=== PATIENT | female | born 1945 | race Caucasian/White ===

== ENCOUNTER 2020-02-10 11:56 | Outpatient (REF) | payer MEDICARE, MEDICAID, SELFPAY ==
[2020-02-10 14:17] LABS: MANUAL DIFF FLAG NO
[2020-02-10 14:29] LABS: Basophils Absolute Auto 0.1 X10*3/uL (0.0-0.2); Basophils Percent Auto 0.9 % (0-2); Eosinophils Absolute Auto 0.1 X10*3/uL (0.0-0.4); Eosinophils Percent Auto 1.1 % (0-4); Hematocrit 41.4 % (37-47); Hemoglobin 13.3 g/dl (12.0-16.0); Imm Gran Abs Auto 0.05 X10*3/uL (0.00-0.03); Imm Gran Pct Auto 0.4 % (0.0-0.4); Lymphocytes Absolute Auto 1.9 X10*3/uL (1.2-4.9); Lymphocytes Percent Auto 14.9 % (20-40); Mean Corpuscular HGB Conc 32.1 g/dl (31.0-35.0); Mean Corpuscular Hemoglobin 30.6 pg (27.0-33.0); Mean Corpuscular Volume 95.4 fL (80-98); Mean Platelet Volume 10.6 fL (9.4-12.3); Monocytes Absolute Auto 1.1 X10*3/uL (0.1-1.2); Monocytes Percent Auto 8.6 % (2-11); Neutrophils Absolute Auto 9.4 X10*3/uL (2.0-8.3); Neutrophils Percent Auto 74.1 % (45-73); Platelet Count 269 X10*3/uL (160-400); Red Blood Count 4.34 X10*6/uL (4.20-5.50); White Blood Count 12.7 X10*3/uL (4.8-10.8)
[2020-02-10 14:52] LABS: Alanine Aminotransferase 47 U/L (0-31); Albumin Level 4.4 g/dL (3.5-5.0); Alkaline Phosphatase 51 U/L (39-117); Anion Gap 16 (12-20); Aspartate Amino Transferase 33 U/L (5-31); Bilirubin Total 0.5 mg/dL (0.0-1.0); Blood Urea Nitrogen 23 mg/dL (9-16); C Reactive Protein 0.66 mg/dL (< or = 0.50); Calcium 9.4 mg/dL (8.4-10.2); Carbon Dioxide 26 mmol/L (22-29); Chloride 103 mmol/L (96-108); Estimated Glomerular Filt Rate > 60; Glucose Random 93 mg/dL (60-115); Potassium 4.7 mmol/l (3.3-5.1); Sodium 140 mmol/L (135-145); Total Protein 6.9 g/dL (6.5-8.0)
[2020-02-10 15:10] LABS: Erythrocyte Sedimentation Rate 19 MM/HR (0-20)
== END 2020-02-10 11:57 | disposition home or self-care (01) ==
LOC: HO.10HDL 11:56
PROVIDERS: Visit Provider Internal Medicine Rheumatology
DX: M79.7 Fibromyalgia (principal)
CPT/HCPCS: 36415; 80053; 85025; 85652; 86140

== ENCOUNTER → 2020-02-11 09:44 | Outpatient (BNVA) | payer MEDICARE, MEDICAID, SELFPAY | PROVIDERS: PCP Internal Medicine; Visit Provider Hospitalist | DX: D80.1 Nonfamilial hypogammaglobulinemia (principal); G47.33 Obstructive sleep apnea (adult) (pediatric); J44.9 Chronic obstructive pulmonary disease, unspecified; Z99.89 Dependence on other enabling machines and devices | CPT/HCPCS: 99212 ==

== ENCOUNTER → 2020-03-07 13:04 | Outpatient (REF) | payer MEDICARE, MEDICAID, SELFPAY ==
--- NOTE | 2020-03-07 13:07 | CA_ITS ---
Transthoracic Echocardiogram Patient (Last, First, Middle): Dixie Cevallos A Gender: Female Date of : 1945 Age: 74 Procedure Date: 03/07/2020 Procedure Type: Transthoracic Echocardiogram Location: OP Height: 157.48 cm Weight: 99.79 kg BSA: 1.99 m2 Heart Rate: bpm BP: 110 / 60 mmHg Refractory Tile Helper: MARCY Referring MD: Cami Post MD Symptoms: G47.33 - Obstructive sleep apnea (adult) (pediatric) Study Quality: Fair ECG Rhythm: Sinus Conclusions: - The left ventricular systolic function is normal. The visually estimated ejection fraction is between 60-65%. - No obvious valvular pathology seen on this study. Findings Left Ventricle Normal left ventricular cavity size. There is mildly increased left ventricular wall thickness. The left ventricular systolic function is normal. The visually estimated ejection fraction is between 60-65%. There is no evidence of regional wall motion abnormalities. Diastolic function is normal for age. Right Ventricle Normal right ventricular cavity size and systolic function. Atria The left atrium is normal in size. The right atrium is normal in size. Aortic Valve There is a normal trileaflet aortic valve. There is no aortic valve stenosis. There is no aortic valve regurgitation. Mitral Valve The mitral valve appears normal. There is trace mitral valve regurgitation. There is no mitral valve stenosis. Pulmonic Valve The pulmonic valve was not well visualized. Tricuspid Valve Normal tricuspid valve structure. There is trace tricuspid valve regurgitation. The pulmonary artery systolic pressure is normal. Great Vessels The aortic annulus, sinuses of valsalva, and asc aorta are normal in size. Venous The inferior vena cava is normal in size and collapses greater than 50% with inspiration. Pericardium/Pleural There is no evidence of pericardial effusion. Prior Study Comparison No significant change compared to prior study dated: 11/19/2018. Recommendations, Care & Conclusions No obvious valvular pathology seen on this study. Measurements 2D Linear Measurements IVSd: 1.11 0.6-0.9/0.6-1.0 cm LVIDd: 4.06 3.9-5.3/4.2-5.9 cm LVIDd Index: 2.04 2.4-3.2/2.2-3.1 cm/m2 LVIDs: 2.63 2.0-3.6 cm LVPWd: 1.11 0.7-1.1 cm Ao Root: 3.40 2.1-3.5 cm LA Diam: 3.30 2.7-3.8/3.0-4.0 cm LAIDs Index: 1.66 1.5-2.3 cm/m2 LV Mass: 187.98 67-162/88-224 g LV Mass Index: 94.46 43-95/49-115 g/m2 LVOT Diam: 2.00 3.0+(-)1.3 cm 2D Systolic Function EF 4C: 55.70 >55% EF 2C: 55.70 >55% EF BiP: 55.40 >55% Mitral Valve MV Pk E: 0.81 MV PK A: 1.23 MV Decel Time: 299.00 E/A: 0.70 E'Lateral: 6.96 E'Medial: 5.80 E/E' Med: 14.00 E/E' Lat: 11.60 PHT: 88.00 MVA PHT: 2.50 Decel [place]: 2.71 Aortic Valve AoV Pk Deshawn: 1.53 AoV Mn Deshawn: 0.96 AoV VTI: 0.27 AoV Pk Grad: 9.00 Aov Mn Grad: 4.00 ADAM Cont.VTI: 2.79 LVOT LVOT Pk Deshawn: 1.28 LVOT Mn Deshawn: 0.83 LVOT VTI: 0.24 LVOT Pk Grad: 7.00 LVOT Mn Grad: 3.00 LVOT Diam: 2.00 LVOT Area: 3.14 Diastolic Function MV Pk E: 0.81 MV Pk A: 1.23 E/A: 0.70 E'Medial: 5.80 E/E' Med: 14.00 E' Laterial: 6.96 E/E' Lat: 11.60 Tricuspid Valve TR Pk Deshawn: 2.07 TR Pk Grad: 17.00 RA Press: 3.00 RVSP: 20.00 Great Vessels Aorta Ao Root-2D: 3.40 2.0-3.7 cm Ao Asc: 3.20 2.1-3.4 cm Ao Arch: 2.60 Updated in Other Vendor System with Status of Final Kwame Ballesteros MD electronically signed on 03/08/2020 11:16:47 AM with status of Final
== END ==
LOC: HO.CARD 13:04
PROVIDERS: PCP Internal Medicine; Visit Provider Internal Medicine
DX: R07.9 Chest pain, unspecified (principal); R06.00 Dyspnea, unspecified; J44.9 Chronic obstructive pulmonary disease, unspecified; G47.33 Obstructive sleep apnea (adult) (pediatric); Z99.89 Dependence on other enabling machines and devices
CPT/HCPCS: 93306

== ENCOUNTER → 2020-05-12 11:09 | Outpatient (BNVA) | payer MEDICARE, MEDICAID, SELFPAY | PROVIDERS: PCP Internal Medicine; Visit Provider Hospitalist | DX: G47.33 Obstructive sleep apnea (adult) (pediatric) (principal); R06.00 Dyspnea, unspecified; J44.9 Chronic obstructive pulmonary disease, unspecified; K44.9 Diaphragmatic hernia without obstruction or gangrene; D80.1 Nonfamilial hypogammaglobulinemia | CPT/HCPCS: 99212 ==

== ENCOUNTER → 2020-05-30 09:05 | Outpatient (BNVA) | payer MEDICARE, MEDICAID, SELFPAY | PROVIDERS: PCP Internal Medicine; Visit Provider Internal Medicine | DX: E11.9 Type 2 diabetes mellitus without complications (principal); E78.5 Hyperlipidemia, unspecified; I10 Essential (primary) hypertension; R01.1 Cardiac murmur, unspecified | CPT/HCPCS: 82947; 99212 ==

== ENCOUNTER → 2020-07-26 13:07 | Outpatient (BNVA) | payer MEDICARE, MEDICAID, SELFPAY | PROVIDERS: PCP Internal Medicine; Visit Provider Hospitalist | DX: K44.9 Diaphragmatic hernia without obstruction or gangrene (principal); J47.9 Bronchiectasis, uncomplicated; D80.1 Nonfamilial hypogammaglobulinemia; J44.9 Chronic obstructive pulmonary disease, unspecified; G47.33 Obstructive sleep apnea (adult) (pediatric); Z99.89 Dependence on other enabling machines and devices | CPT/HCPCS: 99212 ==

== ENCOUNTER 2020-08-11 08:19 | Outpatient (REF) | payer MEDICARE, MEDICAID, SELFPAY ==
[2020-08-11 10:09] LABS: Alanine Aminotransferase 40 U/L (0-31); Albumin Level 4.3 g/dL (3.5-5.0); Alkaline Phosphatase 57 U/L (39-117); Aspartate Amino Transferase 27 U/L (5-31); Bilirubin Direct 0.2 mg/dL (0.0-0.5); Bilirubin Total 0.5 mg/dL (0.0-1.0); Total Protein 6.4 g/dL (6.5-8.0)
[2020-08-11 10:10] LABS: Estimated Average Glucose 140 mg/dL; Hematocrit 39.8 % (37-47); Hemoglobin 13.3 g/dl (12.0-16.0); Hemoglobin A1c % 6.5 %; Mean Corpuscular HGB Conc 33.4 g/dl (31.0-35.0); Mean Corpuscular Hemoglobin 31.4 pg (27.0-33.0); Mean Corpuscular Volume 94.1 fL (80-98); Mean Platelet Volume 10.2 fL (9.4-12.3); Platelet Count 285 X10*3/uL (160-400); Red Blood Count 4.23 X10*6/uL (4.20-5.50); Red Cell Distribution Width 13.8 % (11.0-16.0); White Blood Count 10.2 X10*3/uL (4.8-10.8)
[2020-08-11 10:24] LABS: Alanine Aminotransferase 41 U/L (0-31); Albumin Level 4.3 g/dL (3.5-5.0); Alkaline Phosphatase 56 U/L (39-117); Anion Gap 13 (12-20); Aspartate Amino Transferase 27 U/L (5-31); Bilirubin Total 0.5 mg/dL (0.0-1.0); Blood Urea Nitrogen 16 mg/dL (9-16); Calcium 9.4 mg/dL (8.4-10.2); Carbon Dioxide 27 mmol/L (22-29); Chloride 103 mmol/L (96-108); Cholesterol 205 mg/dL; Estimated Glomerular Filt Rate > 60; Glucose Random 122 mg/dL (60-115); HDL Cholesterol 59 mg/dL; LDL Cholesterol Calculated 118 mg/dl; Potassium 4.3 mmol/L (3.3-5.1); Sodium 139 mmol/L (135-145); Total Protein 6.5 g/dL (6.5-8.0); Triglycerides 143 mg/dL
[2020-08-11 10:29] LABS: Vitamin D 25-OH Total 34.3 ng/mL (>30)
[2020-08-11 10:30] LABS: Thyroid Stimulating Hormone 0.82 uIU/mL (0.32-4.0)
[2020-08-11 11:19] LABS: Creatinine Urine 75.55 mg/dL; Microalbumin Urine < 5.0 mg/L
[2020-08-12 06:47] LABS: LDL Cholesterol Direct 127 mg/dL (<100)
== END 2020-08-11 08:20 | disposition home or self-care (01) ==
LOC: HO.LAB 08:19
PROVIDERS: Absent Provider Internal Medicine Gastroenterology; PCP Internal Medicine; Visit Provider Internal Medicine
DX: E03.9 Hypothyroidism, unspecified (principal); R79.89 Other specified abnormal findings of blood chemistry; E11.9 Type 2 diabetes mellitus without complications; E55.9 Vitamin D deficiency, unspecified
CPT/HCPCS: 36415; 80053; 80061; 80076; 82043; 82248; 82306; 83036; 83721; 84443; 85027

== ENCOUNTER → 2020-08-25 12:55 | Outpatient (BNVA) | payer MEDICARE, MEDICAID, SELFPAY | PROVIDERS: PCP Internal Medicine; Visit Provider Hospitalist | DX: D80.1 Nonfamilial hypogammaglobulinemia (principal); J44.9 Chronic obstructive pulmonary disease, unspecified; G47.33 Obstructive sleep apnea (adult) (pediatric); K44.9 Diaphragmatic hernia without obstruction or gangrene; J47.9 Bronchiectasis, uncomplicated; Z99.89 Dependence on other enabling machines and devices | CPT/HCPCS: 99212 ==

== ENCOUNTER → 2020-08-29 10:51 | Outpatient (BNVA) | payer MEDICARE, MEDICAID, SELFPAY | PROVIDERS: PCP Internal Medicine; Visit Provider Nurse Practitioner Gerontology | DX: E11.9 Type 2 diabetes mellitus without complications (principal); E78.5 Hyperlipidemia, unspecified; I10 Essential (primary) hypertension; Z71.3 Dietary counseling and surveillance; Z79.899 Other long term (current) drug therapy | CPT/HCPCS: 82947; 99212 ==

== ENCOUNTER → 2020-09-15 14:50 | Outpatient (REF) | payer MEDICARE, MEDICAID, SELFPAY | LOC: HO.SL 14:50 | PROVIDERS: PCP Internal Medicine; Visit Provider Hospitalist | DX: G47.33 Obstructive sleep apnea (adult) (pediatric) (principal) | CPT/HCPCS: 95806 ==

== ENCOUNTER → 2020-09-20 13:07 | Outpatient (BNVA) | payer MEDICARE, MEDICAID, SELFPAY | PROVIDERS: PCP Internal Medicine; Visit Provider Hospitalist ==

== ENCOUNTER 2020-09-20 13:45 | Outpatient (REF) | payer MEDICARE, MEDICAID, SELFPAY ==
--- NOTE | ~2020-09-20 | US_ITS ---
EXAMINATION: US VENOUS ULTRASOUND WITH DOPPLER LOWER EXTREMITY, RIGHT CLINICAL INFORMATION: Soft tissue disorder. Leg pain. COMPARISON: None TECHNIQUE: Ultrasound of the deep veins is performed from the hip to the calf with compression sonography and color and pulse Doppler assessment. Spectral analysis with color-flow imaging is performed. FINDINGS: There is normal venous compression and respiratory variation and augmented flow. The visualized common femoral vein, superficial femoral vein, profunda femoral vein, popliteal vein, and the trifurcation region shows no evidence of deep venous thrombosis. There is no significant popliteal fossa cyst. If the patient's symptoms persist, followup ultrasound in 5 days 7 days might be of value to exclude proximal propagation from a non-visualized calf vein. US/US venous duplex LE RT IMPRESSION: No DVT demonstrated in the right lower extremity.
== END 2020-09-20 13:46 | disposition home or self-care (01) ==
LOC: HO.US 13:45
PROVIDERS: Absent Provider Internal Medicine; PCP Internal Medicine; Referring Provider Hospitalist; Visit Provider Hospitalist
DX: J44.9 Chronic obstructive pulmonary disease, unspecified (principal); G47.33 Obstructive sleep apnea (adult) (pediatric); R60.0 Localized edema; R33.9 Retention of urine, unspecified; R30.0 Dysuria; L03.90 Cellulitis, unspecified; D80.1 Nonfamilial hypogammaglobulinemia; Z79.899 Other long term (current) drug therapy
CPT/HCPCS: 93971; 99212

== ENCOUNTER 2020-09-21 09:39 | Outpatient (REF) | payer MEDICARE, MEDICAID, SELFPAY ==
[2020-09-21 11:26] LABS: Glucose Urine UA NEG (NEG); Leukocyte Esterase Urine 3+ (NEG); Nitrite Urine NEG (NEG); UACC Culture Trigger YES; Urine Blood TRACE (NEG); Urine Ketones NEG (NEG); Urine Protein TRACE MG/DL (NEG-TRACE)
[2020-09-21 11:37] LABS: Appearance Urine HAZY; Color Urine YELLOW
[2020-09-21 12:36] LABS: Bacteria Urine 1+ /LPF; RBC Urine 0-2 /HPF (0); Squamous Epithelial Cell Urine 3+ /LPF; WBC Urine 50-75 /HPF (0-4)
== END 2020-09-21 09:40 | disposition home or self-care (01) ==
LOC: HO.LAB 09:39
PROVIDERS: PCP Internal Medicine; Visit Provider Hospitalist
DX: R30.0 Dysuria (principal)
CPT/HCPCS: 81001; 81003; 87086

== ENCOUNTER → 2020-11-17 13:06 | Outpatient (BNVA) | payer MEDICARE, MEDICAID, SELFPAY | PROVIDERS: PCP Internal Medicine; Visit Provider Hospitalist | DX: J44.9 Chronic obstructive pulmonary disease, unspecified (principal); J40 Bronchitis, not specified as acute or chronic; G47.33 Obstructive sleep apnea (adult) (pediatric); L03.115 Cellulitis of right lower limb; R30.0 Dysuria; D80.1 Nonfamilial hypogammaglobulinemia; M79.89 Other specified soft tissue disorders | CPT/HCPCS: 99212 ==

== ENCOUNTER → 2021-08-14 13:17 | Outpatient (BNVA) | payer MEDICARE, MEDICAID, SELFPAY | PROVIDERS: PCP Internal Medicine; Visit Provider Hospitalist | DX: G47.33 Obstructive sleep apnea (adult) (pediatric) (principal); J44.9 Chronic obstructive pulmonary disease, unspecified; D80.1 Nonfamilial hypogammaglobulinemia; R30.0 Dysuria; Z79.899 Other long term (current) drug therapy; Z99.89 Dependence on other enabling machines and devices | CPT/HCPCS: 99212 ==

== ENCOUNTER → 2021-09-19 10:56 | Outpatient (BNVA) | payer MEDICARE, MEDICAID, SELFPAY | PROVIDERS: PCP Internal Medicine; Visit Provider Nurse Practitioner Family | DX: G43.709 Chronic migraine without aura, not intractable, without status migrainosus (principal); M54.2 Cervicalgia | CPT/HCPCS: 99202 ==

== ENCOUNTER → 2021-10-26 14:01 | Outpatient (BNVA) | payer MEDICARE, MEDICAID, SELFPAY | PROVIDERS: PCP Internal Medicine; Visit Provider Hospitalist | DX: J40 Bronchitis, not specified as acute or chronic (principal); G47.33 Obstructive sleep apnea (adult) (pediatric); K21.9 Gastro-esophageal reflux disease without esophagitis; D80.1 Nonfamilial hypogammaglobulinemia; Z79.899 Other long term (current) drug therapy; Z99.81 Dependence on supplemental oxygen; Z79.2 Long term (current) use of antibiotics | CPT/HCPCS: 99212 ==

== ENCOUNTER → 2021-11-29 13:22 | Outpatient (BNVA) | payer MEDICARE, MEDICAID, SELFPAY | PROVIDERS: PCP Internal Medicine; Visit Provider Student in an Organized Health Care Education/Training Program | DX: M81.0 Age-related osteoporosis without current pathological fracture (principal); M62.838 Other muscle spasm; D80.1 Nonfamilial hypogammaglobulinemia; D69.2 Other nonthrombocytopenic purpura; K21.9 Gastro-esophageal reflux disease without esophagitis; R23.3 Spontaneous ecchymoses | CPT/HCPCS: 99202 ==

== ENCOUNTER → 2021-12-05 15:05 | Outpatient (BNV) | payer MEDICARE, MEDICAID, SELFPAY | PROVIDERS: PCP Internal Medicine; Referring Provider Student in an Organized Health Care Education/Training Program; Visit Provider Internal Medicine Medical Oncology | DX: D80.1 Nonfamilial hypogammaglobulinemia (principal) | CPT/HCPCS: 99204; 99213; 99214 ==

== ENCOUNTER → 2021-12-21 13:56 | Outpatient (BNVA) | payer MEDICARE, MEDICAID, SELFPAY | PROVIDERS: PCP Internal Medicine; Visit Provider Student in an Organized Health Care Education/Training Program | DX: M81.0 Age-related osteoporosis without current pathological fracture (principal); D80.1 Nonfamilial hypogammaglobulinemia; M47.816 Spondylosis without myelopathy or radiculopathy, lumbar region | CPT/HCPCS: 99212 ==

== ENCOUNTER → 2022-01-25 14:20 | Outpatient (BNVA) | payer MEDICARE, MEDICAID, SELFPAY | PROVIDERS: PCP Internal Medicine; Visit Provider Hospitalist | DX: J44.9 Chronic obstructive pulmonary disease, unspecified (principal); J45.909 Unspecified asthma, uncomplicated; G47.33 Obstructive sleep apnea (adult) (pediatric); D80.1 Nonfamilial hypogammaglobulinemia; K21.9 Gastro-esophageal reflux disease without esophagitis; Z99.89 Dependence on other enabling machines and devices | CPT/HCPCS: 99212 ==

== ENCOUNTER → 2022-02-12 13:22 | Outpatient (BNVA) | payer MEDICARE, MEDICAID, SELFPAY | PROVIDERS: PCP Internal Medicine; Visit Provider Hospitalist | DX: Z23 Encounter for immunization (principal); J44.9 Chronic obstructive pulmonary disease, unspecified | CPT/HCPCS: 90471; 90686; 99211 ==

== ENCOUNTER 2022-06-28 12:58 | Outpatient (RCR) | payer MEDICARE, MEDICAID, SELFPAY ==
[2022-06-28 13:04] VITALS: BP 140/80; PULSE 62; O2SAT 97
== END 2023-04-19 09:14 | disposition home or self-care (01) ==
LOC: HO.PTWFD 12:58
PROVIDERS: Visit Provider Internal Medicine
DX: R42 Dizziness and giddiness (principal)
CPT/HCPCS: 97163

== ENCOUNTER → 2022-07-10 12:44 | Outpatient (REF) | payer MEDICARE, MEDICAID, SELFPAY | LOC: HO.SL 12:44 | PROVIDERS: Visit Provider Hospitalist | DX: G47.33 Obstructive sleep apnea (adult) (pediatric) (principal) | CPT/HCPCS: 95806 ==

== ENCOUNTER → 2022-07-26 12:38 | Outpatient (BNVA) | payer MEDICARE, MEDICAID, SELFPAY | PROVIDERS: PCP Internal Medicine; Visit Provider Hospitalist | DX: J44.9 Chronic obstructive pulmonary disease, unspecified (principal); G47.33 Obstructive sleep apnea (adult) (pediatric); R60.0 Localized edema; D80.1 Nonfamilial hypogammaglobulinemia; Z79.899 Other long term (current) drug therapy | CPT/HCPCS: 99212 ==

== ENCOUNTER 2022-10-15 14:33 | Outpatient (AMB) | payer MEDICARE, MEDICAID, SELFPAY ==
--- NOTE | 2022-10-15 14:40 | MHC.OFFVIS ---
Intake Vital Signs 10/15/22 14:49 Height 5 ft 2 in Weight 220 lb BMI 40.2 BP 150/70 H Blood Pressure Location Rt radial Pulse 94 Pulse Oximetry (%) 98 Intake Visit Reasons: COPD Allergies amoxicillin [AMOXICILLIN] Allergy (Severe, Verified 09/18/22 13:29) NAUSEA & VOMITING atorvastatin [Lipitor] Allergy (Severe, Verified 09/18/22 13:29) severe back pain Biaxin Allergy (Severe, Verified 09/18/22 13:29) Anaphylaxis budesonide [Symbicort] Allergy (Severe, Verified 09/18/22 13:29) shortness of breath celecoxib [From CELEBREX] Allergy (Severe, Verified 09/18/22 13:29) HEART RACING clavulanic acid [From AUGMENTIN] Allergy (Severe, Verified 09/18/22 13:29) FEELS WIERD diazepam [Valium] Allergy (Severe, Verified 09/18/22 13:29) heart rate esomeprazole [Nexium] Allergy (Severe, Verified 09/18/22 13:29) back pain ezetimibe [Zetia] Allergy (Severe, Verified 09/18/22 13:29) anaphylaxis famotidine [Pepcid] Allergy (Severe, Verified 09/18/22 13:29) Back Pain irbesartan [Avapro] Allergy (Severe, Verified 09/18/22 13:29) Stomach Pain nitrofurantoin [Macrobid] Allergy (Severe, Verified 09/18/22 13:29) Stomach Pain shellfish derived Allergy (Severe, Verified 09/18/22 13:29) ANAPHYLAXIS Sulfa (Sulfonamide Antibiotics) Allergy (Severe, Verified 09/18/22 13:29) ANAPHYLAXIS, tongue swelling fluticasone [From Advair Diskus] Allergy (Intermediate, Verified 09/18/22 13:29) Redness of Skin formoterol [Symbicort] Allergy (Intermediate, Verified 09/18/22 13:29) shortness of breath latex [LATEX] Allergy (Intermediate, Verified 09/18/22 13:29) RASH levofloxacin [From LEVAQUIN] Allergy (Intermediate, Verified 09/18/22 13:29) DOES FEEL GOOD metformin Allergy (Intermediate, Verified 09/18/22 13:29) diarrhea pregabalin [From LYRICA] Allergy (Intermediate, Verified 09/18/22 13:29) FELT LIKE HEART ATTACK rabeprazole [From ACIPHEX] Allergy (Intermediate, Verified 09/18/22 13:29) FELT AWFUL rosuvastatin [Crestor] Allergy (Intermediate, Verified 09/18/22 13:29) severe back pain salmeterol [From Advair Diskus] Allergy (Intermediate, Verified 09/18/22 13:29) Redness of Skin telmisartan [From MICARDIS] Allergy (Intermediate, Verified 09/18/22 13:29) DIFF BREATHING topiramate [From TOPAMAX] Allergy (Intermediate, Verified 09/18/22 13:29) HYPERTENSION tramadol [TRAMADOL] Allergy (Intermediate, Verified 09/18/22 13:29) DOES NOT LIKE Iodinated Contrast Media [IV Dye, Iodine Containing] Allergy (Mild, Verified 09/18/22 13:29) HEADACHE,SOB,LIP SWELLING ciprofloxacin [From Cipro] Adverse Reaction (Mild, Verified 09/18/22 13:29) ANXIETY clarithromycin [From Biaxin] Adverse Reaction (Mild, Verified 09/18/22 13:29) NAUSEA AND VOMITING pantoprazole [From Protonix] Adverse Reaction (Mild, Verified 09/18/22 13:29) NAUSEA AND VOMITING HPI HPI Comments History of Present Illness Details The patient is a 77 y/o woman with a history of obstructive sleep apnea on CPAP in addition to intrinsic asthma and also hypogammaglobulinemia. She did see her press operator helper. She was placed on Symbicort and she had an adverse reaction with shortness of breath. Therefore, she will continue on the Flovent. She does have Xopenex. She does have episodes of shortness of breath at night time and now she knows that she is going to use the Xopenex. She did have an ultrasound to abnormal blood work demonstrating that she does have a gallbladder polyp. She is working closely with her lead solutions architect for this. Having some nasal congestion and some upper airway secretions. Did do an x-ray in the x-ray was clear. She did finish a couple courses of antibiotics. She is immunocompromised and she knows that she does not clear infections quickly. She still has a cough and also has some chest tightness. But overall better than before. She continues uses CPAP. The CPAP therapy continues to be affecting beneficial. She does use it for more than 4 hours a night. 08/14/2021 the patient is here for a pulmonary follow-up visit. Apparently the patient was complaining worsening dyspnea symptoms. She did have further evaluations at [facility] pulmonary and also Cardiology. Although no significant improvement in her overall state. She does have issues with recurrent infections in view of her significant hypogammaglobulinemia. She does follow closely with Allergy and immunology. However, the patient is reluctant to consider augmentation therapy. That being said the patient is at risk for recurrent infections. Currently she is getting antibiotics for cystitis. Ultimately she should at least be on prophylactic antibiotics to minimize infections in view of her significant IgG deficiency. In regards of her sleep apnea, we did review her results. Appears that her AHI is down to about 1.2 events an hour. Her CPAP is set at 8 cm on 2L oxygen. Appears to be affecting beneficial. She is going to be following up closely with Neurology as well for issues with dizziness and unsteady gait. She can also discuss her sleep abnormalities who is Neurology as well. In regards of her asthma the patient has been stable on Flovent and also Xopenex. She tried long-acting beta agonist and she does tolerate them. The patient has not required any prednisone. She also underwent a CT scan of the chest done at [facility] sometime in the fall 2020 which is reassuring without any acute interstitial process or pulmonary nodules to be concerned about. The patient did have pulmonary function studies a couple months ago. I do not have those results to review the patient I will request them from [facility] for next meeting. 10/26/2021 the patient is here for pulmonary follow-up visit. Overall she continues to do well. He does complaint of dyspnea on exertion. Moderate severity. We did do a brief walking oximetry in her oxygen did drop to about 91%. She does require oxygen at nighttime. She does use CPAP with oxygen 2 L which is affecting beneficial. She uses CPAP more than 4 hours a night. Her therapy has been affecting beneficial. She needs to continue with the oxygen supplementation at this time. Will plan to do a formal 6 minute walk test during her next visit to see if she qualifies for oxygen with activity as well. She does have underlying COPD. She is on respiratory therapy. She also has immunodeficiency with significantly low IgG levels. The patient is reluctant to starting IVIG therapy because of the potential adverse effects. She has been on prophylactic antibiotics with azithromycin 3 times a week which have been helpful. 01/25/2022 the patient is here for a pulmonary follow-up visit. The patient is doing relatively well from a respiratory status. She does complaint of dyspnea on exertion. The patient also complains of productive cough. On a daily basis. [id number] severity. This is consistent with chronic bronchitis. We need to minimize the use of prednisone due to her significant osteoporosis. She will be a good candidate for Daliresp. The patient is aware of the GI side effects. Now worsen after she had a fall. The patient also was diagnosed with osteoporosis. After the fall she was having significant back pain that was affecting her breathing. She did not follow-up with any medical evaluation. I did recommend she at least undergo a lower back checks x-ray to make sure she does not have a compression fracture. In the meantime she continues use her CPAP therapy. The CPAP therapy continues to be affecting beneficial. She does use it for more than 4 hours a night. She also continues with respiratory medications as prescribed. She did have her IgG levels recheck in the were still very low. The patient is still reluctant to undergo any IVIG augmentation therapy. She also followed up with Cardiology. It was the recommendation she undergo a stress test. They recommended a Jolly nuclear stress test. however, the patient is uncomfortable with the idea of undergoing nuclear study. Therefore I recommend that if that is the case she can undergo a stress echo. She can talk to her commissioner of officials about that. 07/26/2022 the patient is here for a pulmonary follow-up visit. The patient has multiple complaints. She is struggling with the CPAP. She is tolerating the nasal pillows although she sometimes he gets any nasal congestion can tolerated. I did provide her with an F 30 I mask with a fullface mask. Size small. Seem to fit well. I did set up her machine for the fullface mask and cap the pressures the same 6-14. Her average pressure is 10 and her AHI was well below 1. I would was reassuring to her that the therapy has been working well. She needs to make sure she uses the machine 4 hours a night so it she can get the best effect from the machine. Hopefully with a full face much she can tolerate it better. She is doing well from a respiratory status. She is using inhalers every other day which seem to be helping decreasing hoarseness and tolerating them better. No significant wheezing or rhonchi that she can not complain about. She has not had any recent infections. She is using a mask the patient had a CT scan of the chest ordered by a different provider. It demonstrated some smile areas of atelectasis at the base. Otherwise no nodules of bronchiectasis appreciated. This is reassuring. However, the patient did have moderate degree of coronary artery calcifications. She was supposed to have a cardiac stress test. But she is concerned about adverse effects. I had recommended a Jolly nuclear stress test that she should be able to handle. For some reason she was not able to have a nuclear stress test. The patient needs to continue with wrist management as far as decreasing her cardiac risk and therefore using the CPAP therapy will be very important. Other risk modifications she can discuss with commissioner of officials and primary care. The patient does complaint of significant lower extremity edema. Appears to be symmetrical with her blood I leg being significantly swollen. Will be reasonable to do an ultrasound to rule out DVT. 10/15/2022 the patient is here for pulmonary follow-up visit. She has worsening respiratory symptoms. Has been having increasing wheezing for the last week. The patient has been using her nebulizer treatments several times a day. She is on maximal respiratory therapy. She has a hard time tolerating multiple inhalers and therefore the for have some limitations. The patient has been assessed for biologic therapy but the patient does not qualify. She is going to require additional prednisone at this time. She is reluctant to use is and she has had bad adverse effects in the past. Think she is also will be a good candidate for Daliresp. Specially because the fact she can not tolerate prednisone and frequent exacerbations. The patient also has significant immunodeficiency. She has been on prophylactic antibiotics. She has had increased chest congestion. Therefore, will switch her antibiotics over to doxycycline to make sure there were covering for for a lower respiratory infection. She still has lower extremity edema. She does have follow-up with commissioner of officials. Her lower extremity Dopplers were negative for DVT. The patient has been using her CPAP although she feels more congested after using it. We did download her machine. She is using more than 4 hours a night. His AHI is down to 1. I did adjust her pressures from 6-16 to 8 to 11 cm. [facility] Medical History (Updated 08/07/23 @ 22:47 by Chuck Yu MD) Asthma-COPD overlap syndrome Bladder pain Bronchiectasis Bronchitis Cellulitis of right leg Chest pain COPD (chronic obstructive pulmonary disease) Diabetes type 2, controlled Dizziness ANTONY (dyspnea on exertion) Fatty liver Heart murmur Hiatal hernia HTN (hypertension) Hyperlipidemia Hypogammaglobulinemia Hypothyroidism Left wrist pain Lower extremity edema Morbid obesity Obesity GWEN (obstructive sleep apnea) GWEN on CPAP Osteoporosis Post herpetic neuralgia Right elbow pain Right wrist pain Skin tear of right elbow without complication T2DM (type 2 diabetes mellitus) Vitamin D deficiency Vitamin D deficiency Surgical History H/O total hysterectomy with bilateral salpingo-oophorectomy (BSO) Retinal detachment Family History Father CVD (cardiovascular disease) Myocardial infarction Mother Breast cancer Diabetes mellitus Sister Cancer Kidney stone Son No problems noted. Social History Household Members: None Housing: Apartment Are you a primary foster care social worker to a significant other at home: No Do you presently have visiting nurse or other home services: No Alcohol intake: never Patient Tobacco Use Status: Former Tobacco user e-Cigarette/Vaping Use: Never Used Second Hand Smoke Exposure: No service: No Current occupational status: disabled Cognitive needs: Yes Hearing needs: No Vision needs: Yes Review of Systems Const Denies body aches, Denies chills, Denies fatigue, Denies fever(s) and Denies headache(s) Eyes Denies change in vision ENT Reports dizziness, Denies otalgia, Denies headache(s), Denies nasal discharge, Denies sinus pain and Denies sore throat Card Denies chest pain, Denies edema, Reports leg edema (R>L), Denies lightheadedness, Denies dyspnea and Reports dyspnea on exertion Resp Reports chest congestion, Reports cough, Denies dyspnea, Reports dyspnea on exertion and Reports wheezing GI Denies abdominal pain, Denies constipation, Denies diarrhea, Denies nausea and Denies vomiting Denies hematuria, Denies dysuria and Denies flank pain Musc Details: Bilateral lower extremity redness and swelling R>L Reports back pain, Denies myalgias, Denies arthralgias, Denies joint swelling, Denies numbness and Denies tingling Skin/Breast Denies lesions and Denies rash Neuro Reports Neuro-related abnormal movements, Denies confusion, Reports dizziness, Denies headache(s), Denies numbness and Denies tingling Psych Denies confusion Endo Denies fatigue Aller/Immun Reports wheezing Physical Exam Vital Signs: Last Vital Signs Pulse 94 10/15/22 14:49 BP 150/70 H 10/15/22 14:49 Pulse Ox 98 10/15/22 14:49 BMI result Body Mass Index 40.2 Const General: No confusion Orientation/consciousness: No confusion Neck Neck: Yes normal visual inspection, Yes full ROM and Yes no lymphadenopathy Chest Chest palpation & inspection: normal inspection of the chest Resp Effort & Inspection: prolonged expiratory phase Auscultation: wheezes and diminished lung sounds Cardio Rate: regular rate Rhythm: regular rhythm Heart sounds: S1 normal heart sound present and S2 normal heart sound present GI Palpation (GI): Soft to palpation and nontender Auscultation: normal bowel sounds Skin General skin exam: rashes and/or lesions noted Neuro General: No confusion Extrem General: Yes edema (R>>L) Assessment & Plan Assessment & Plan (1) COPD (chronic obstructive pulmonary disease): Code(s): J44.9 - Chronic obstructive pulmonary disease, unspecified Qualifiers: COPD type: COPD with acute exacerbation Qualified Code(s): J44.1 - Chronic obstructive pulmonary disease with (acute) exacerbation (2) GWEN (obstructive sleep apnea): Code(s): G47.33 - Obstructive sleep apnea (adult) (pediatric) (3) Asthma-COPD overlap syndrome: Code(s): J44.9 - Chronic obstructive pulmonary disease, unspecified (4) Hypogammaglobulinemia: Code(s): D80.1 - Nonfamilial hypogammaglobulinemia (5) Lower extremity edema: Code(s): R60.0 - Localized edema Plan continue Flovent Xopenex as needed continue spiriva evry 48 hours hold Azithromycin MWF start medrolpack start Doxycycline Continue CPAP therapy with 2L/min oxygen, provided F30i small mask. Needs to use it at least 4 hours while sleeping. Adjusted APAP 8-11, ramp 6 continue oxygen therapy while sleeping. Therapy effective and beneficial PFTs/pulmonary rehab when better F/U 3-4 months Medications: New prednisone PO daily; Take 2 tabs daily x 5 days, then 1 tab daily x 5 days 18 days 63 tabs 0RF doxycycline hyclate 100 mg PO BID 10 days 20 caps 0RF Coding Level of Care Code Est Pt Level 4 (20290) Diagnoses COPD (chronic obstructive pulmonary disease) J44.1 COPD type: COPD with acute exacerbation GWEN (obstructive sleep apnea) G47.33 Asthma-COPD overlap syndrome J44.9 Hypogammaglobulinemia D80.1 Lower extremity edema R60.0 Time Spent (min) 19
[2022-10-15 14:49] VITALS: BP 150/70; PULSE 94; O2SAT 98; BMI 40.2
== END 2022-10-15 15:27 | disposition home or self-care (01) ==
PROVIDERS: PCP Internal Medicine; Visit Provider Hospitalist
DX: J44.1 Chronic obstructive pulmonary disease with (acute) exacerbation (principal); G47.33 Obstructive sleep apnea (adult) (pediatric); J44.9 Chronic obstructive pulmonary disease, unspecified; D80.1 Nonfamilial hypogammaglobulinemia; R60.0 Localized edema
CPT/HCPCS: 99214

== ENCOUNTER → 2022-10-15 14:33 | Outpatient (BNVA) | payer MEDICARE, MEDICAID, SELFPAY | PROVIDERS: PCP Internal Medicine; Visit Provider Hospitalist | DX: J44.1 Chronic obstructive pulmonary disease with (acute) exacerbation (principal); G47.33 Obstructive sleep apnea (adult) (pediatric); D80.1 Nonfamilial hypogammaglobulinemia; R60.0 Localized edema | CPT/HCPCS: 99212 ==

== ENCOUNTER 2022-11-13 14:52 | Outpatient (AMB) | payer MEDICARE, MEDICAID, SELFPAY ==
[2022-11-13 14:56] VITALS: BP 140/60; PULSE 88; RESP 16; O2SAT 98; BMI 40.1
--- NOTE | 2022-11-13 14:56 | A.OFFPC_ITS ---
Vital Signs 11/13/22 14:56 Height 5 ft 2 in Weight 219 lb 8 oz BMI 40.1 BP 140/60 H Blood Pressure Location Lt brachial Position Sitting Respiration 16 Pulse 88 Pulse Source Pulse Oximeter Pulse Oximetry (%) 98 Oxygen Delivery Method Room Air Intake Visit Reasons: dm NEEDS 30 MINUTES Intake Note: Patient is here to follow up on DM. Pt requesting BP machine. 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 Accompanied by: Self / Same As Patient Allergies amoxicillin [AMOXICILLIN] Allergy (Severe, Verified 11/13/22 15:15) NAUSEA & VOMITING atorvastatin [Lipitor] Allergy (Severe, Verified 11/13/22 15:15) severe back pain Biaxin Allergy (Severe, Verified 11/13/22 15:15) Anaphylaxis budesonide [Symbicort] Allergy (Severe, Verified 11/13/22 15:15) shortness of breath celecoxib [From CELEBREX] Allergy (Severe, Verified 11/13/22 15:15) HEART RACING clavulanic acid [From AUGMENTIN] Allergy (Severe, Verified 11/13/22 15:15) FEELS WIERD diazepam [Valium] Allergy (Severe, Verified 11/13/22 15:15) heart rate esomeprazole [Nexium] Allergy (Severe, Verified 11/13/22 15:15) back pain ezetimibe [Zetia] Allergy (Severe, Verified 11/13/22 15:15) anaphylaxis famotidine [Pepcid] Allergy (Severe, Verified 11/13/22 15:15) Back Pain irbesartan [Avapro] Allergy (Severe, Verified 11/13/22 15:15) Stomach Pain nitrofurantoin [Macrobid] Allergy (Severe, Verified 11/13/22 15:15) Stomach Pain shellfish derived Allergy (Severe, Verified 11/13/22 15:15) ANAPHYLAXIS Sulfa (Sulfonamide Antibiotics) Allergy (Severe, Verified 11/13/22 15:15) ANAPHYLAXIS, tongue swelling fluticasone [From Advair Diskus] Allergy (Intermediate, Verified 11/13/22 15:15) Redness of Skin formoterol [Symbicort] Allergy (Intermediate, Verified 11/13/22 15:15) shortness of breath latex [LATEX] Allergy (Intermediate, Verified 11/13/22 15:15) RASH levofloxacin [From LEVAQUIN] Allergy (Intermediate, Verified 11/13/22 15:15) DOES FEEL GOOD metformin Allergy (Intermediate, Verified 11/13/22 15:15) diarrhea pregabalin [From LYRICA] Allergy (Intermediate, Verified 11/13/22 15:15) FELT LIKE HEART ATTACK rabeprazole [From ACIPHEX] Allergy (Intermediate, Verified 11/13/22 15:15) FELT AWFUL rosuvastatin [Crestor] Allergy (Intermediate, Verified 11/13/22 15:15) severe back pain salmeterol [From Advair Diskus] Allergy (Intermediate, Verified 11/13/22 15:15) Redness of Skin telmisartan [From MICARDIS] Allergy (Intermediate, Verified 11/13/22 15:15) DIFF BREATHING topiramate [From TOPAMAX] Allergy (Intermediate, Verified 11/13/22 15:15) HYPERTENSION tramadol [TRAMADOL] Allergy (Intermediate, Verified 11/13/22 15:15) DOES NOT LIKE Iodinated Contrast Media [IV Dye, Iodine Containing] Allergy (Mild, Verified 11/13/22 15:15) HEADACHE,SOB,LIP SWELLING ciprofloxacin [From Cipro] Adverse Reaction (Mild, Verified 11/13/22 15:15) ANXIETY clarithromycin [From Biaxin] Adverse Reaction (Mild, Verified 11/13/22 15:15) NAUSEA AND VOMITING pantoprazole [From Protonix] Adverse Reaction (Mild, Verified 11/13/22 15:15) NAUSEA AND VOMITING Medication List - Last Reconciled 11/13/22 by Mercedes Rodríguez MD acetaminophen 325 mg PO Q4-6H PRN azithromycin 250 mg PO 3XW 90 days blood sugar diagnostic (FreeStyle Lite Strips) check blood sugar once daily cranberry extract 500 mg PO BID epinephrine 0.15 mg (0.3 mL) IM Q30M PRN 30 days fluticasone furoate 27.5 mcg/actuation 2 sprays intranasal DAILY 90 days fluticasone propionate 220 mcg/actuation 2 puffs PO BID 90 days avxkozndum-jqjbrojidcoz-ldwbkz 1-1-4 % 1 ea topical DAILY lactobacillus combination no.9 (Adult 50 Plus Probiotic) 4,000 mmu cells PO DAILY lancets (FreeStyle Lancets) Freestyle Lite- check blood sugar daily lansoprazole (Prevacid) 30 mg PO DAILY levalbuterol HCl (Xopenex) 1.25 mg inhalation Q4H PRN levalbuterol tartrate 45 mcg/actuation (Xopenex HFA) 45 mcg inhalation DAILY PRN lidocaine 5% 1 patch topical DAILY lisinopril 10 mg PO BID 90 days lisinopril 30 mg PO DAILY multivitamin 1 tab PO DAILY nystatin (Nyamyc) 1 appl topical DAILY Spiriva Respimat 2.5 mcg/actuation (tiotropium bromide) 2 puffs inhalation DAILY NS Synthroid (levothyroxine) 137 mcg PO QAM NS Synthroid (levothyroxine) 125 mcg PO DAILY 90 days NS verapamil ER (Verelan PM) 300 mg PO BEDTIME walker (Ultra-Light Rollator misc) As directed Tobacco use date assessed: 03/29/22 Fall risk assessment: 2 + Falls in past year Last assessed Fall Risk: 11/13/22 Dental Screening Dental Screen Date: 11/13/22 Did you have a dental visit in the last 12 months?: Yes Did you have a dental problem in the last 6 months where you did not have access to dental care?: No Was dental information given to patient?: Patient has dentist HPI HPI Comments History of Present Illness Details This is a 77-year-old female with diabetes mellitus type 2, hypertension, COPD, morbid obesity and hypogammaglobulinemia that comes today complaining of vestibular migraines and peripheral vertigo and would like a referral to [facility]. She walks with a cane for gait stability. She had a bone density in 2021 showing osteoporosis in the right hip and will be referred to [facility] for this matter. A1c within goal. Blood pressure borderline normal to elevated. COPD has been stable and this is follow by pulmonology. She is morbidly obese with a BMI of 40.1 and was advised to diet and exercise to reach BMI goal less than 30. 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 No chest pain or shortness of breath. [facility] Medical History (Updated 11/13/22 @ 15:29 by Mercedes Rodríguez MD) Asthma-COPD overlap syndrome Bladder pain Bronchiectasis Bronchitis Cellulitis of right leg Chest pain COPD (chronic obstructive pulmonary disease) Diabetes type 2, controlled Dizziness ANTONY (dyspnea on exertion) Fatty liver Heart murmur Hiatal hernia HTN (hypertension) Hyperlipidemia Hypogammaglobulinemia Hypothyroidism Left wrist pain Lower extremity edema Morbid obesity Obesity GWEN (obstructive sleep apnea) GWEN on CPAP Osteoporosis Post herpetic neuralgia Right elbow pain Right wrist pain Skin tear of right elbow without complication T2DM (type 2 diabetes mellitus) Vitamin D deficiency Vitamin D deficiency Surgical History H/O total hysterectomy with bilateral salpingo-oophorectomy (BSO) Retinal detachment Family History Father CVD (cardiovascular disease) Myocardial infarction Mother Breast cancer Diabetes mellitus Sister Cancer Kidney stone Son No problems noted. Social History Household Members: None Housing: Apartment Are you a primary laboratory animal care veterinarian to a significant other at home: No Do you presently have visiting nurse or other home services: No Alcohol intake: never Patient Tobacco Use Status: Former Tobacco user e-Cigarette/Vaping Use: Never Used Second Hand Smoke Exposure: No service: No Current occupational status: disabled Cognitive needs: Yes Hearing needs: No Vision needs: Yes Questionnaire Thrive Questionnaire Date Thrive assessed: 03/29/22 KYLIE-7 AMB Questionnaire KYLIE-7 Date KYLIE - 7 assessed: 03/29/22 Source: Developed by Drs. Carroll Shah, Isabella Luz, Ion Pool and colleagues, with an educational portillo from [employer]. Review of Systems Const All systems reviewed & are unremarkable except as noted in HPI and below Eyes Reports no additional complaints, Denies change in vision and Denies other visual disturbances Card Denies chest pain at rest, Denies chest pain with activity, Denies edema, Denies irregular heart rhythm, Denies claudication, Denies dyspnea, Denies dyspnea on exertion, Denies orthopnea, Denies paroxysmal nocturnal dyspnea and Denies slow heart rate Resp Denies cough, Denies dyspnea and Denies dyspnea on exertion GI Denies abdominal pain, Denies change in bowel habits, Denies excessive flatus, Denies nausea and Denies vomiting Denies urinary incontinence, Denies urinary hesitancy and Denies urinary urgency Musc Denies abnormal gait, Denies atrophy, Denies deformity and Denies limited range of motion Skin/Breast Denies bleeding lesions, Denies changing lesions and Denies rash Neuro Denies abnormal gait and Denies lack of coordination Physical exam (Primary Care) Vital Signs: Last Vital Signs Pulse 88 11/13/22 14:56 Resp 16 11/13/22 14:56 BP 140/60 H 11/13/22 14:56 Pulse Ox 98 11/13/22 14:56 Oxygen Delivery Method Room Air 11/13/22 14:56 BMI result Body Mass Index 40.1 Tobacco/Smoking Status: Tobacco use Status Tobacco use date assessed 03/29/22 11/13/22 14:56 Patient Tobacco Use Status Former Tobacco user 11/13/22 14:56 e-Cigarette/Vaping Use Never Used 11/13/22 14:56 Thrive Assessment: Date of Thrive Assessment Date Thrive assessed 03/29/22 11/13/22 14:56 Const Limitations: ambulation with cane Eyes General: appearance normal, both eyes and all related structures Eyelids: Yes eyelids normal Conjunctivae: conjunctivae normal Neck Neck: Yes normal visual inspection and Yes supple Resp Effort & Inspection: normal respiratory effort Auscultation: clear to auscultation bilaterally Cardio Jugular venous distension: no JVD Rate: regular rate Rhythm: regular rhythm Heart sounds: S1 normal heart sound present and S2 normal heart sound present Extrem General: Yes full ROM Results AMB Hemoglobin A1c AMB Hemoglobin A1c 6.1 % Last Edit by JEFFERY Solorzano on 11/13/22 15:12 Results Reviewed Results Reviewed: Laboratory Last Values Hgb A1c (Clinic) 6.1 % (4.0-6.0) H 11/13/22 15:11 Assessment and Plan Assessment & Plan (1) COPD (chronic obstructive pulmonary disease): Code(s): J44.9 - Chronic obstructive pulmonary disease, unspecified Qualifiers: COPD type: COPD with acute exacerbation Qualified Code(s): J44.1 - Chronic obstructive pulmonary disease with (acute) exacerbation Plan: Continue azithromycin 3 times a week. Continue longstanding inhaler. Use rescue inhaler as needed. Follow-up with pulmonology. (2) Hypogammaglobulinemia: Code(s): D80.1 - Nonfamilial hypogammaglobulinemia Plan: Follow-up with loading machine operator helper. (3) Osteoporosis: Code(s): M81.0 - Age-related osteoporosis without current pathological fracture Qualifiers: Osteoporosis type: age-related Presence of current pathological fracture: without current pathological fracture Qualified Code(s): M81.0 - Age- related osteoporosis without current pathological fracture Plan: Referred to [facility]. 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 A1c goal is equal or less than 7%. (5) Morbid obesity: Code(s): E66.01 - Morbid (severe) obesity due to excess calories Plan: Start diet and exercise. BMI goal is less than 30. (6) HTN (hypertension): Code(s): I10 - Essential (primary) hypertension Qualifiers: Hypertension type: unspecified Qualified Code(s): I10 - Essential (primary) hypertension Plan: Continue lisinopril. Blood pressure goal is equal or less than 130/80. Orders: Orders Thyroid Stimulating Hormone Today E03.9 - Hypothyroidism, unspecified Lipid Panel Today E78.5 - Hyperlipidemia, unspecified AMB Hemoglobin A1c Today E11.9 - Type 2 diabetes mellitus without complications Referrals Neurology Referral G43.809 - Other migraine, not intractable, without status migrainosus, H81.399 - Other peripheral vertigo, unspecified ear, R26.89 - Other abnormalities of gait and mobility Endocrinology Referral M81.0 - Age-related osteoporosis without current pathological fracture Medications: New blood pressure monitor As directed 1 ea 0RF I10 - Essential (primary) hypertension Changed From nystatin (Nyamyc) 1 appl topical DAILY To nystatin (Nyamyc) 1 appl topical DAILY 30 days 30 grams 1RF Refilled blood sugar diagnostic (FreeStyle Lite Strips) check blood sugar once daily 100 ea 3RF E11.9 - Type 2 diabetes mellitus without complications Coding Level of Care Code Est Pt Level 4 (44424) Diagnoses COPD (chronic obstructive pulmonary disease) J44.1 COPD type: COPD with acute exacerbation Hypogammaglobulinemia D80.1 Osteoporosis M81.0 Osteoporosis type: age-related Presence of current pathological fracture: without current pathological fracture T2DM (type 2 diabetes mellitus) E11.9 Diabetes mellitus penitentiary insulin use: without penitentiary use Diabetes mellitus complication status: without complication Morbid obesity E66.01 HTN (hypertension) I10 Hypertension type: unspecified Time Spent (min) 24
== END 2022-11-13 15:44 | disposition home or self-care (01) ==
PROVIDERS: PCP Internal Medicine; Visit Provider Internal Medicine
DX: E11.9 Type 2 diabetes mellitus without complications (principal); J44.1 Chronic obstructive pulmonary disease with (acute) exacerbation; D80.1 Nonfamilial hypogammaglobulinemia; E66.01 Morbid (severe) obesity due to excess calories; I10 Essential (primary) hypertension; Z68.41 Body mass index [BMI] 40.0-44.9, adult; M81.0 Age-related osteoporosis without current pathological fracture
CPT/HCPCS: 83036; 99214

== ENCOUNTER 2023-01-01 15:35 | Outpatient (AMB) | payer MEDICARE, MEDICAID, SELFPAY ==
[2023-01-01 15:39] VITALS: PULSE 89; O2SAT 98; BMI 38.8
--- NOTE | 2023-01-01 15:39 | A.OFFVIS_ITS ---
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: No Allergies amoxicillin [AMOXICILLIN] Allergy (Severe, Verified 01/01/23 15:40) NAUSEA & VOMITING atorvastatin [Lipitor] Allergy (Severe, Verified 01/01/23 15:40) severe back pain Biaxin Allergy (Severe, Verified 01/01/23 15:40) Anaphylaxis budesonide [Symbicort] Allergy (Severe, Verified 01/01/23 15:40) shortness of breath celecoxib [From CELEBREX] Allergy (Severe, Verified 01/01/23 15:40) HEART RACING clavulanic acid [From AUGMENTIN] Allergy (Severe, Verified 01/01/23 15:40) FEELS WIERD diazepam [Valium] Allergy (Severe, Verified 01/01/23 15:40) heart rate esomeprazole [Nexium] Allergy (Severe, Verified 01/01/23 15:40) back pain ezetimibe [Zetia] Allergy (Severe, Verified 01/01/23 15:40) anaphylaxis famotidine [Pepcid] Allergy (Severe, Verified 01/01/23 15:40) Back Pain irbesartan [Avapro] Allergy (Severe, Verified 01/01/23 15:40) Stomach Pain nitrofurantoin [Macrobid] Allergy (Severe, Verified 01/01/23 15:40) Stomach Pain shellfish derived Allergy (Severe, Verified 01/01/23 15:40) ANAPHYLAXIS Sulfa (Sulfonamide Antibiotics) Allergy (Severe, Verified 01/01/23 15:40) ANAPHYLAXIS, tongue swelling fluticasone [From Advair Diskus] Allergy (Intermediate, Verified 01/01/23 15:40) Redness of Skin formoterol [Symbicort] Allergy (Intermediate, Verified 01/01/23 15:40) shortness of breath latex [LATEX] Allergy (Intermediate, Verified 01/01/23 15:40) RASH levofloxacin [From LEVAQUIN] Allergy (Intermediate, Verified 01/01/23 15:40) DOES FEEL GOOD metformin Allergy (Intermediate, Verified 01/01/23 15:40) diarrhea pregabalin [From LYRICA] Allergy (Intermediate, Verified 01/01/23 15:40) FELT LIKE HEART ATTACK rabeprazole [From ACIPHEX] Allergy (Intermediate, Verified 01/01/23 15:40) FELT AWFUL rosuvastatin [Crestor] Allergy (Intermediate, Verified 01/01/23 15:40) severe back pain salmeterol [From Advair Diskus] Allergy (Intermediate, Verified 01/01/23 15:40) Redness of Skin telmisartan [From MICARDIS] Allergy (Intermediate, Verified 01/01/23 15:40) DIFF BREATHING topiramate [From TOPAMAX] Allergy (Intermediate, Verified 01/01/23 15:40) HYPERTENSION tramadol [TRAMADOL] Allergy (Intermediate, Verified 01/01/23 15:40) DOES NOT LIKE Iodinated Contrast Media [IV Dye, Iodine Containing] Allergy (Mild, Verified 01/01/23 15:40) HEADACHE,SOB,LIP SWELLING ciprofloxacin [From Cipro] Adverse Reaction (Mild, Verified 01/01/23 15:40) ANXIETY clarithromycin [From Biaxin] Adverse Reaction (Mild, Verified 01/01/23 15:40) NAUSEA AND VOMITING pantoprazole [From Protonix] Adverse Reaction (Mild, Verified 01/01/23 15:40) NAUSEA AND VOMITING HPI HPI Comments History of Present Illness Details The patient is a 77 y/o woman with a history of obstructive sleep apnea on CPAP in addition to intrinsic asthma and also hypogammaglobulinemia. She did see her instrument panel assembler. She was placed on Symbicort and she had an adverse reactio n with shortness of breath. Therefore, she will continue on the Flovent. She does have Xopenex. She does have episodes of shortness of breath at night time and now she knows that she is going to use the Xopenex. She did have an ultrasound to abnormal blood work demonstrating that she does have a gallbladder polyp. She is working closely with her oil pit attendant for this. Having some nasal congestion and some upper airway secretions. Did do an x-ray in the x-ray was clear. She did finish a couple courses of antibiotics. She is immunocompromised and she knows that she does not clear infections quickly. She still has a cough and also has some chest tightness. But overall better than before. She continues uses CPAP. The CPAP therapy continues to be affecting beneficial. She does use it for more than 4 hours a night. 08/14/2021 the patient is here for a pulmonary follow-up visit. Apparently the patient was complaining worsening dyspnea symptoms. She did have further evaluations at [facility] pulmonary and also Cardiology. Although no significant improvement in her overall state. She does have issues with recurrent infections in view of her significant hypogammaglobulinemia. She does follow closely with Allergy and immunology. However, the patient is reluctant to consider augmentation therapy. That being said the patient is at risk for recurrent infections. Currently she is getting antibiotics for cystitis. Ultimately she should at least be on prophylactic antibiotics to minimize infections in view of her significant IgG deficiency. In regards of her sleep a pnea, we did review her results. Appears that her AHI is down to about 1.2 events an hour. Her CPAP is set at 8 cm on 2L oxygen. Appears to be affecting beneficial. She is going to be following up closely with Neurology as well for issues with dizziness and unsteady gait. She can also discuss her sleep abnormalities who is Neurology as well. In regards of her asthma the patient has been stable on Flovent and also Xopenex. She tried long-acting beta agonist and she does tolerate them. The patient has not required any prednisone. She also underwent a CT scan of the chest done at [facility] sometime in the fall 2020 which is reassuring without any acute interstitial process or pulmonary nodules to be concerned about. The patient did have pulmonary function studies a couple months ago. I do not have those results to review the patient I will request them from [facility] for next meeting. 10/26/2021 the patient is here for pulmonary follow-up visit. Overall she continues to do well. He does complaint of dyspnea on exertion. Moderate severity. We did do a brief walking oximetry in her oxygen did drop to about 91%. She does require oxygen at nighttime. She does use CPAP with oxygen 2 L which is affecting beneficial. She uses CPAP more than 4 hours a night. Her therapy has been affecting beneficial. She needs to continue with the oxygen supplementation at this time. Will plan to do a formal 6 minute walk test during her next visit to see if she qualifies for oxygen with activity as well. She does have underlying COPD. She is on respiratory therapy. She also has immunodeficiency with significantly low IgG levels. The patient is reluctant to starting IVIG therapy because of the potential adverse effects. She has been on prophylactic antibiotics with azithromycin 3 times a week which have been helpful. 01/25/2022 the patient is here for a pulmonary follow-up visit. The patient is doing relatively well from a respiratory status. She does complaint of dyspnea on exertion. The patient also complains of productive cough. On a daily basis. [id number] severity. This is consistent with chronic bronchitis. We need to minimize the use of prednisone due to her significant osteoporosis. She will be a good candidate for Daliresp. The patient is aware of the GI side effects. Now worsen after she had a fall. The patient also was diagnosed with osteoporosis. After the fall she was having significant back pain that was affecting her breathing. She did not follow-up with any medical evaluation. I did recommend she at least undergo a lower back checks x-ray to make sure she does not have a compression fracture. In the meantime she continues use her CPAP therapy. The CPAP therapy continues to be affecting bene ficial. She does use it for more than 4 hours a night. She also continues with respiratory medications as prescribed. She did have her IgG levels recheck in the were still very low. The patient is still reluctant to undergo any IVIG augmentation therapy. She also followed up with Cardiology. It was the recommendation she undergo a stress test. They recommended a Jolly nuclear stress test. however, the patient is uncomfortable with the idea of undergoing nuclear study. Therefore I recommend that if that is the case she can undergo a stress echo. She can talk to her senior infrastructure engineer about that. 07/26/2022 the patient is here for a pulmonary follow-up visit. The patient has multiple complaints. She is struggling with the CPAP. She is tolerating the nasal pillows although she sometimes he gets any nasal congestion can tolerated. I did provide her with an F 30 I mask with a fullface mask. Size small. Seem to fit well. I did set up her machine for the fullface mask and cap the pressures the same 6-14. Her average pressure is 10 and her AHI was well below 1. I would was reassuring to her that the therapy has been working well. She needs to make sure she uses the machine 4 hours a night so it she can get the best effect from the machine. Hopefully with a full face much she can tolerate it better. She is doing well from a respiratory status. She is using inhalers every other day which seem to be helping decreasing hoarseness and tolerating them better. No significant wheezing or rhonchi that she can not complain about. She has not had any recent infections. She is using a mask the patient had a CT scan of the chest ordered by a different provider. It demonstrated some smile areas of atelectasis at the base. Otherwise no nodules of bronchiectasis appreciated. This is reassuring. However, the patient did have moderate degree of coronary artery calcifications. She was supposed to have a cardiac stress test. But she is concerned about adverse effects. I had recommended a Jolly nuclear stress test that she should be able to handle. For some reason she was not able to have a nuclear stress test. The patient needs to continue with wrist management as far as decreasing her cardiac risk and therefore using the CPAP therapy will be very important. Other risk modifications she can discuss with senior infrastructure engineer and primary care. The patient does complaint of significant lower extremity edema. Appears to be symmetrical with her blood I leg being significantly swollen. Will be reasonable to do an ultrasound to rule out DVT. 10/15/2022 the patient is here for pulmonary follow-up visit. She has worsening respiratory symptoms. Has been having increasing wheezing for the last week. The patient has been using her nebulizer treatments several times a day. She is on maximal respiratory therapy. She has a hard time tolerating multiple inhalers and therefore the for have some limitations. The patient has been assessed for biologic therapy but the patient does not qualify. She is going to require additional prednisone at this time. She is reluctant to use is and she has had bad adverse effects in the past. Think she is also will be a good candidate for Daliresp. Specially because the fact she can not tolerate prednisone and frequent exacerbations. The patient also has significant immunodeficiency. She has been on prophylactic antibiotics. She has had increased chest congestion. Therefore, will switch her antibiotics over to doxycycline to make sure there were covering for for a lower respiratory infection. She still has lower extremity edema. She does have follow-up with senior infrastructure engineer. Her lower extremity Dopplers were negative for DVT. The patient has been using her CPAP although she feels more congested after using it. We did download her machine. She is using more than 4 hours a night. His AHI is down to 1. I did adjust her pressures from 6-16 to 8 to 11 cm. 01/01/2023 the patient is here for a pulmonary follow-up visit. Since we last spoke she is been having a lot issues with dizziness vertigo migraines and falls. She is been very unsteady on her feet. She is following closely [facility] Neurology. During the last visit back in October she was having issues with a underlying respiratory infection. She did take prednisone while on the prednisone her symptoms significantly improved. She does have nasal congestion now and nasal sinus pressure. She does have a pressure the years. The patient does have very retracted eardrums and significant erythema of the nasal turbinates. Likely a component of rhinosinusitis. This could be indirectly affecting her Dizziness symptoms. The patient has been using her respiratory therapy. She has not required her rescue inhaler. She continues uses CPAP every night. We did review the download. She does use it for more than 4 hours a night and her AHI is down to 1.2. Therefore she will continue with the current settings. She is doing really good on the CPAP at this time. She also finds it very effective in beneficial. [facility] Medical History (Updated 01/01/23 @ 22:59 by Chuck Yu MD) Lower extremity edema COPD (chronic obstructive pulmonary disease) Left wrist pain Skin tear of right elbow without complication Right wrist pain Right elbow pain Osteoporosis Bronchitis Dizziness Morbid obesity Cellulitis of right leg Post herpetic neuralgia Bladder pain Hypothyroidism Heart murmur Vitamin D deficiency Vitamin D deficiency T2DM (type 2 diabetes mellitus) Hiatal hernia Bronchiectasis GWEN (obstructive sleep apnea) Fatty liver Diabetes type 2, controlled Obesity ANTONY (dyspnea on exertion) Chest pain Hyperlipidemia HTN (hypertension) GWEN on CPAP Asthma-COPD overlap syndrome Hypogammaglobulinemia Surgical History H/O total hysterectomy with bilateral salpingo-oophorectomy (BSO) Retinal detachment Family History Father CVD (cardiovascular disease) Myocardial infarction Mother Breast cancer Diabetes mellitus Sister Cancer Kidney stone Son No problems noted. Social History Household Members: None Housing: Apartment Are you a primary attending ambulatory care to a significant other at home: No Do you presently have visiting nurse or other home services: No Alcohol intake: never Patient Tobacco Use Status: Former Tobacco user e-Cigarette/Vaping Use: Never Used Second Hand Smoke Exposure: No service: No Current occupational status: disabled Cognitive needs: Yes Hearing needs: No Vision needs: Yes Review of Systems Const Denies body aches, Denies chills, Denies fatigue, Denies fever(s), Reports frequent falls and Reports headache(s) Eyes Denies change in vision ENT Reports vertigo, Reports dizziness, Denies otalgia, Reports headache(s), Reports nasal congestion, Reports nasal discharge, Reports nasal obstruction, Reports sinus pressure and Denies sore throat Card Denies chest pain, Denies edema, Reports leg edema (R>L), Denies lig htheadedness, Denies dyspnea and Reports dyspnea on exertion Resp Denies chest congestion, Reports cough, Denies dyspnea, Reports dyspnea on exertion and Reports wheezing GI Denies abdominal pain, Denies constipation, Denies diarrhea, Denies nausea and Denies vomiting Denies hematuria, Denies dysuria and Denies flank pain Musc Details: Bilateral lower extremity redness and swelling R>L Reports back pain, Denies myalgias, Denies arthralgias, Denies joint swelling, Denies numbness and Denies tingling Skin/Breast Denies lesions and Denies rash Neuro Denies confusion, Reports vertigo, Reports dizziness, Reports frequent falls, Reports headache(s), Denies numbness and Denies tingling Psych Denies confusion Endo Denies fatigue Aller/Immun Reports wheezing Physical Exam Vital Signs: Last Vital Signs Pulse 89 01/01/23 15:39 Pulse Ox 98 01/01/23 15:39 Oxygen Delivery Method Room Air 01/01/23 15:39 BMI result Body Mass Index 38.8 Const General: No confusion Orientation/consciousness: No confusion HEENT Ears: TM abnormal retracted General nose exam: Abnormal mucous membranes and turbinates present erythematous Neck Neck: Yes normal visual inspection, Yes full ROM and Yes no lymphadenopathy Chest Chest palpation & inspection: normal inspection of the chest Resp Effort & Inspection: normal respiratory effort Auscultation: no wheezes and diminished lung sounds Cardio Rate: regular rate Rhythm: regular rhythm Heart sounds: S1 normal heart sound present and S2 normal heart sound present GI Palpation (GI): Soft to palpation and nontender Auscultation: normal bowel sounds Skin General skin exam: rashes and/or lesions noted Neuro General: No confusion Extrem General: Yes edema (R>>L) Assessment & Plan Assessment & Plan (1) COPD (chronic obstructive pulmonary disease): Code(s): J44.9 - Chronic obstructive pulmonary disease, unspecified Qualifiers: COPD type: COPD with acute exacerbation Qualified Code(s): J44.1 - Chronic obstructive pulmonary disease with (acute) exacerbation (2) GWEN (obstructive sleep apnea): Code(s): G47.33 - Obstructive sleep apnea (adult) (pediatric) (3) Asthma-COPD overlap syndrome: Code(s): J44.9 - Chronic obstructive pulmonary disease, unspecified (4) Hypogammaglobulinemia: Code(s): D80.1 - Nonfamilial hypogammaglobulinemia (5) Lower extremity edema: Code(s): R60.0 - Localized edema (6) Rhinosinusitis: Code(s): J32.9 - Chronic sinusitis, unspecified Plan continue Flovent Xopenex as needed continue spiriva evry 48 hours hold Azithromycin MWF start low dose prednisone taper Continue CPAP therapy with 2L/min oxygen, provided F30i small mask. Needs to use it at least 4 hours while sleeping. Adjusted APAP 8-11, ramp 6 continue oxygen therapy while sleeping. Therapy effective and beneficial PFTs/pulmonary rehab when better F/U 4-6 months Medications: New prednisolone take 2 tabs daily x 10 days, then 1 tab daily x 10 days 20 days 30 tabs 0RF Coding Level of Care Code Est Pt Level 4 (17454) Diagnoses Chronic obstructive pulmonary disease with acute exacerbation J44.1 COPD type: COPD with acute exacerbation GWEN (obstructive sleep apnea) G47.33 Asthma-COPD overlap syndrome J44.9 Hypogammaglobulinemia D80.1 Lower extremity edema R60.0 Rhinosinusitis J32.9 Time Spent (min) 21
== END 2023-01-01 16:07 | disposition home or self-care (01) ==
PROVIDERS: PCP Internal Medicine; Visit Provider Hospitalist
DX: J44.1 Chronic obstructive pulmonary disease with (acute) exacerbation (principal); G47.33 Obstructive sleep apnea (adult) (pediatric); J44.9 Chronic obstructive pulmonary disease, unspecified; D80.1 Nonfamilial hypogammaglobulinemia; R60.0 Localized edema; J32.9 Chronic sinusitis, unspecified
CPT/HCPCS: 99214

== ENCOUNTER → 2023-01-01 15:35 | Outpatient (BNVA) | payer MEDICARE, MEDICAID, SELFPAY | PROVIDERS: PCP Internal Medicine; Visit Provider Hospitalist | DX: J44.1 Chronic obstructive pulmonary disease with (acute) exacerbation (principal); J45.909 Unspecified asthma, uncomplicated; J32.9 Chronic sinusitis, unspecified; G47.33 Obstructive sleep apnea (adult) (pediatric); D80.1 Nonfamilial hypogammaglobulinemia; R60.0 Localized edema; Z87.891 Personal history of nicotine dependence; Z99.89 Dependence on other enabling machines and devices | CPT/HCPCS: 99212 ==

== ENCOUNTER 2023-02-14 12:11 | Outpatient (AMB) | payer MEDICARE, MEDICAID, SELFPAY ==
[2023-02-14 12:17] VITALS: BP 142/40; BMI 39.9
--- NOTE | 2023-02-14 12:17 | A.OFFPC_ITS ---
Vital Signs 02/14/23 12:17 Height 5 ft 2 in Weight 218 lb BMI 39.9 BP 142/40 H Blood Pressure Location Lt brachial Position Sitting Intake Visit Reasons: physical exam Intake Note: Patient here for a physical exam, c/o dizziness and headaches Condominium [employer] Manager Required: No Accompanied by: Self / Same As Patient Allergies amoxicillin [AMOXICILLIN] Allergy (Severe, Verified 02/14/23 12:47) NAUSEA & VOMITING atorvastatin [Lipitor] Allergy (Severe, Verified 02/14/23 12:47) severe back pain Biaxin Allergy (Severe, Verified 02/14/23 12:47) Anaphylaxis budesonide [Symbicort] Allergy (Severe, Verified 02/14/23 12:47) shortness of breath celecoxib [From CELEBREX] Allergy (Severe, Verified 02/14/23 12:47) HEART RACING clavulanic acid [From AUGMENTIN] Allergy (Severe, Verified 02/14/23 12:47) FEELS WIERD diazepam [Valium] Allergy (Severe, Verified 02/14/23 12:47) heart rate esomeprazole [Nexium] Allergy (Severe, Verified 02/14/23 12:47) back pain ezetimibe [Zetia] Allergy (Severe, Verified 02/14/23 12:47) anaphylaxis famotidine [Pepcid] Allergy (Severe, Verified 02/14/23 12:47) Back Pain irbesartan [Avapro] Allergy (Severe, Verified 02/14/23 12:47) Stomach Pain nitrofurantoin [Macrobid] Allergy (Severe, Verified 02/14/23 12:47) Stomach Pain shellfish derived Allergy (Severe, Verified 02/14/23 12:47) ANAPHYLAXIS Sulfa (Sulfonamide Antibiotics) Allergy (Severe, Verified 02/14/23 12:47) ANAPHYLAXIS, tongue swelling fluticasone [From Advair Diskus] Allergy (Intermediate, Verified 02/14/23 12:47) Redness of Skin formoterol [Symbicort] Allergy (Intermediate, Verified 02/14/23 12:47) shortness of breath latex [LATEX] Allergy (Intermediate, Verified 02/14/23 12:47) RASH levofloxacin [From LEVAQUIN] Allergy (Intermediate, Verified 02/14/23 12:47) DOES FEEL GOOD metformin Allergy (Intermediate, Verified 02/14/23 12:47) diarrhea pregabalin [From LYRICA] Allergy (Intermediate, Verified 02/14/23 12:47) FELT LIKE HEART ATTACK rabeprazole [From ACIPHEX] Allergy (Intermediate, Verified 02/14/23 12:47) FELT AWFUL rosuvastatin [Crestor] Allergy (Intermediate, Verified 02/14/23 12:47) severe back pain salmeterol [From Advair Diskus] Allergy (Intermediate, Verified 02/14/23 12:47) Redness of Skin telmisartan [From MICARDIS] Allergy (Intermediate, Verified 02/14/23 12:47) DIFF BREATHING topiramate [From TOPAMAX] Allergy (Intermediate, Verified 02/14/23 12:47) HYPERTENSION tramadol [TRAMADOL] Allergy (Intermediate, Verified 02/14/23 12:47) DOES NOT LIKE Iodinated Contrast Media [IV Dye, Iodine Containing] Allergy (Mild, Verified 02/14/23 12:47) HEADACHE,SOB,LIP SWELLING ciprofloxacin [From Cipro] Adverse Reaction (Mild, Verified 02/14/23 12:47) ANXIETY clarithromycin [From Biaxin] Adverse Reaction (Mild, Verified 02/14/23 12:47) NAUSEA AND VOMITING pantoprazole [From Protonix] Adverse Reaction (Mild, Verified 02/14/23 12:47) NAUSEA AND VOMITING Medication List - Last Reconciled 02/14/23 by Mercedes Rodríguez MD acetaminophen 325 mg PO Q4-6H PRN azithromycin 250 mg PO 3XW 90 days blood pressure monitor As directed blood sugar diagnostic (FreeStyle Lite Strips) check blood sugar once daily cranberry extract 500 mg PO BID epinephrine 0.15 mg (0.3 mL) IM Q30M PRN 30 days fluticasone furoate 27.5 mcg/actuation 2 sprays intranasal DAILY 90 days fluticasone propionate 220 mcg/actuation 2 puffs PO BID 90 days tefwdeqdfg-[id number]-bupuxn 1-1-4 % 1 ea topical DAILY lactobacillus combination no.9 (Adult 50 Plus Probiotic) 4,000 mmu cells PO DAILY lancets (FreeStyle Lancets) Freestyle Lite- check blood sugar daily lansoprazole (Prevacid) 30 mg PO DAILY levalbuterol HCl (Xopenex) 1.25 mg inhalation Q4H PRN levalbuterol tartrate 45 mcg/actuation (Xopenex HFA) 45 mcg inhalation DAILY PRN lidocaine 5% 1 patch topical DAILY lisinopril 40 mg PO DAILY multivitamin 1 tab PO DAILY nebulizers As directed nystatin (Nyamyc) 1 appl topical DAILY 30 days Spiriva Respimat 2.5 mcg/actuation (tiotropium bromide) 2 puffs inhalation DAILY NS Synthroid (levothyroxine) 137 mcg PO QAM NS Synthroid (levothyroxine) 125 mcg PO DAILY 90 days NS verapamil ER (Verelan PM) 300 mg PO BEDTIME walker (Ultra-Light Rollator misc) As directed Tobacco use date assessed: 03/29/22 Fall risk assessment: No Falls in past year Last assessed Fall Risk: 02/14/23 Dental Screening Dental Screen Date: 02/14/23 Did you have a dental visit in the last 12 months?: Yes Did you have a dental problem in the last 6 months where you did not have access to dental care?: No Was dental information given to patient?: Patient has dentist HPI HPI Comments History of Present Illness Details This is a 77-year-old female with diabetes mellitus type 2, asthma-COPD overlap syndrome and hypogammaglobulinemia that comes for her physical exam. A1c within goal and this is controlled with low-carbohydrate diet. Asthma-COPD overlap syndrome is follow by pulmonology and has been stable. Hypogammaglobulinemia is follow by oil extractor. Last mammogram was October 2022 at [facility] and was normal as per patient. Last colonoscopy was 2019 showing tubular adenoma. No need for Pap smear due to age. No chest pain or shortness of breath. Complains of loss of balance and follows with Neurology. Has low back pain and wants a new pain management referral. [facility] Medical History (Updated 02/14/23 @ 14:09 by Mercedes Rodríguez MD) Lower extremity edema COPD (chronic obstructive pulmonary disease) Left wrist pain Skin tear of right elbow without complication Right wrist pain Right elbow pain Osteoporosis Bronchitis Dizziness Morbid obesity Cellulitis of right leg Post herpetic neuralgia Bladder pain Hypothyroidism Heart murmur Vitamin D deficiency Vitamin D deficiency T2DM (type 2 diabetes mellitus) Hiatal hernia Bronchiectasis GWEN (obstructive sleep apnea) Fatty liver Diabetes type 2, controlled Obesity ANTONY (dyspnea on exertion) Chest pain Hyperlipidemia HTN (hypertension) GWEN on CPAP Asthma-COPD overlap syndrome Hypogammaglobulinemia Surgical History Retinal detachment H/O total hysterectomy with bilateral salpingo-oophorectomy (BSO) Family History Father CVD (cardiovascular disease) Myocardial infarction Mother Breast cancer Diabetes mellitus Sister Cancer Kidney stone Son No problems noted. Social History Household Members: None Housing: Apartment Are you a primary home health care provider to a significant other at home: No Do you presently have visiting nurse or other home services: No Alcohol intake: never Patient Tobacco Use Status: Former Tobacco user e-Cigarette/Vaping Use: Never Used Second Hand Smoke Exposure: No service: No Current occupational status: disabled Cognitive needs: Yes Hearing needs: No Vision needs: Yes Questionnaire Thrive Questionnaire Date Thrive assessed: 03/29/22 KYLIE-7 AMB Questionnaire KYLIE-7 Date KYLIE - 7 assessed: 03/29/22 Source: Developed by Drs. Carroll Shah, Isabella Luz, Ion Pool and colleagues, with an educational portillo from [employer]. Review of Systems Const All systems reviewed & are unremarkable except as noted in HPI and below Eyes Reports no additional complaints, Denies change in vision and Denies other visual disturbances Card Denies chest pain at rest, Denies chest pain with activity, Denies edema, Denies irregular heart rhythm, Denies claudication, Denies dyspnea, Denies dyspnea on exertion, Denies orthopnea, Denies paroxysmal nocturnal dyspnea and Denies slow heart rate Resp Denies cough, Denies dyspnea and Denies dyspnea on exertion GI Denies abdominal pain, Denies change in bowel habits, Denies excessive flatus, Denies nausea and Denies vomiting Denies urinary incontinence, Denies urinary hesitancy and Denies urinary urgency Musc Denies abnormal gait, Denies atrophy, Denies deformity and Denies limited range of motion Skin/Breast Denies bleeding lesions, Denies changing lesions and Denies rash Neuro Denies abnormal gait, Denies behavioral changes, Denies confusion and Denies lack of coordination Psych Denies behavioral changes and Denies confusion Physical exam (Primary Care) Vital Signs: Last Vital Signs BP 142/40 H 02/14/23 12:17 BMI result Body Mass Index 39.9 Tobacco/Smoking Status: Tobacco use Status Tobacco use date assessed 03/29/22 02/14/23 12:18 Patient Tobacco Use Status Former Tobacco user 02/14/23 12:18 e-Cigarette/Vaping Use Never Used 02/14/23 12:18 Thrive Assessment: Date of Thrive Assessment Date Thrive assessed 03/29/22 02/14/23 12:18 Const General: No confusion Orientation/consciousness: patient oriented x3 and No confusion HENMT Head: Yes normal to inspection, Yes normocephalic and Yes atraumatic Ears: external ears normal Eyes General: appearance normal, both eyes and all related structures Eyelids: Yes eyelids normal Conjunctivae: conjunctivae normal Neck Neck: Yes normal visual inspection and Yes supple Resp Effort & Inspection: normal respiratory effort Auscultation: clear to auscultation bilaterally Cardio Jugular venous distension: no JVD Rate: regular rate Rhythm: regular rhythm Heart sounds: S1 normal heart sound present and S2 normal heart sound present GI Inspection: Yes normal to inspection Palpation (GI): Soft to palpation and nontender Auscultation: normal bowel sounds Skin General skin exam: no rashes or lesions noted Neuro General: patient oriented x3, no focal motor deficits and No confusion Extrem General: Yes full ROM Psych Appearance: grossly normal Office Procedures Flu Questionnaire Does the patient have a severe egg allergy?: No Results AMB Hemoglobin A1c AMB Hemoglobin A1c 6.8 % Last Edit by ADRIANO Verdugo on 02/14/23 12:4 4 Immunizations flu vacc [id number] 6mos up(PF) 60 mcg(15 mcgx4)/0.5 mL IM syringe Performing Provider: Mercedes Rodríguez MD Performing Location: [facility] [place] [facility] Documented (not given) by: ADRIANO Verdugo on 02/14/23 12:31 Reason Not Given: Patient Refused Results Reviewed Results Reviewed: Laboratory Last Values Hgb A1c (Clinic) 6.8 % (4.0-6.0) H 02/14/23 12:19 Assessment and Plan Assessment & Plan (1) Physical exam: Code(s): Z00.00 - Encounter for general adult medical examination without abnormal findings Plan: Repeat in a year. (2) Asthma-COPD overlap syndrome: Code(s): J44.9 - Chronic obstructive pulmonary disease, unspecified Plan: Continue longstanding inhaler. Use rescue inhaler as needed. Follow-up with pulmonology. (3) Hypogammaglobulinemia: Code(s): D80.1 - Nonfamilial hypogammaglobulinemia Plan: Follow-up with immunology. (4) Diabetes type 2, controlled: Comment: diet Code(s): E11.9 - Type 2 diabetes mellitus without complications Qualifiers: Diabetes mellitus rat exterminator insulin use: without rat exterminator use Diabetes mellitus complication status: without complication Qualified Code(s): E11.9 - Type 2 diabetes mellitus without complications Plan: Continue low-carbohydrate diet. A1c goal is equal or less than 7%. Orders: Orders Influenza [id number] Immunization Today Z23 - Encounter for immunization Comprehensive [place]. Panel Fast Today E11.9 - Type 2 diabetes mellitus without complications Thyroid Stimulating Hormone Today E03.9 - Hypothyroidism, unspecified AMB Hemoglobin A1c Today E11.9 - Type 2 diabetes mellitus without complications Lipid Panel Today E78.5 - Hyperlipidemia, unspecified Microalbumin, Random (w Creat) Today E11.9 - Type 2 diabetes mellitus without complications Referrals Pain Management Referral M54.50 - Low back pain, unspecified Coding Level of Care Code Est Pt Prev Care >65y(18303) Diagnoses Physical exam Z00.00 Asthma-COPD overlap syndrome J44.9 Hypogammaglobulinemia D80.1 Controlled type 2 diabetes mellitus without complication, without long-term current use of insulin E11.9 Diabetes mellitus fci insulin use: without rat exterminator use Diabetes mellitus complication status: without complication Time Spent (min) 35
== END 2023-02-14 13:06 | disposition home or self-care (01) ==
PROVIDERS: PCP Internal Medicine; Visit Provider Internal Medicine
DX: Z00.00 Encounter for general adult medical examination without abnormal findings (principal); J44.9 Chronic obstructive pulmonary disease, unspecified; D80.1 Nonfamilial hypogammaglobulinemia; E11.9 Type 2 diabetes mellitus without complications
CPT/HCPCS: 83036; 99397

== ENCOUNTER → 2023-03-13 12:59 | Outpatient (BNVA) | payer MEDICARE, MEDICAID, SELFPAY | PROVIDERS: PCP Internal Medicine; Visit Provider Registered Nurse Emergency | DX: M79.18 Myalgia, other site (principal); M47.812 Spondylosis without myelopathy or radiculopathy, cervical region; M47.816 Spondylosis without myelopathy or radiculopathy, lumbar region; M25.50 Pain in unspecified joint | CPT/HCPCS: 99202 ==

== ENCOUNTER 2023-03-13 13:00 | Outpatient (AMB) | payer MEDICARE, MEDICAID, SELFPAY ==
--- NOTE | 2023-03-13 13:04 | MHC.OFFVIS ---
Intake Vital Signs 03/13/23 13:22 Height 5 ft 2 in Weight 218 lb BMI 39.9 BP 151/68 H Blood Pressure Location Lt brachial Position Sitting Respiration 16 Pulse 86 Pulse Oximetry (%) 95 Oxygen Delivery Method Room Air Intake Visit Reasons: Low back pain/Confirmed Allergies amoxicillin [AMOXICILLIN] Allergy (Severe, Verified 02/14/23 12:47) NAUSEA & VOMITING atorvastatin [Lipitor] Allergy (Severe, Verified 02/14/23 12:47) severe back pain Biaxin Allergy (Severe, Verified 02/14/23 12:47) Anaphylaxis budesonide [Symbicort] Allergy (Severe, Verified 02/14/23 12:47) shortness of breath celecoxib [From CELEBREX] Allergy (Severe, Verified 02/14/23 12:47) HEART RACING clavulanic acid [From AUGMENTIN] Allergy (Severe, Verified 02/14/23 12:47) FEELS WIERD diazepam [Valium] Allergy (Severe, Verified 02/14/23 12:47) heart rate esomeprazole [Nexium] Allergy (Severe, Verified 02/14/23 12:47) back pain ezetimibe [Zetia] Allergy (Severe, Verified 02/14/23 12:47) anaphylaxis famotidine [Pepcid] Allergy (Severe, Verified 02/14/23 12:47) Back Pain irbesartan [Avapro] Allergy (Severe, Verified 02/14/23 12:47) Stomach Pain nitrofurantoin [Macrobid] Allergy (Severe, Verified 02/14/23 12:47) Stomach Pain shellfish derived Allergy (Severe, Verified 02/14/23 12:47) ANAPHYLAXIS Sulfa (Sulfonamide Antibiotics) Allergy (Severe, Verified 02/14/23 12:47) ANAPHYLAXIS, tongue swelling fluticasone [From Advair Diskus] Allergy (Intermediate, Verified 02/14/23 12:47) Redness of Skin formoterol [Symbicort] Allergy (Intermediate, Verified 02/14/23 12:47) shortness of breath latex [LATEX] Allergy (Intermediate, Verified 02/14/23 12:47) RASH levofloxacin [From LEVAQUIN] Allergy (Intermediate, Verified 02/14/23 12:47) DOES FEEL GOOD metformin Allergy (Intermediate, Verified 02/14/23 12:47) diarrhea pregabalin [From LYRICA] Allergy (Intermediate, Verified 02/14/23 12:47) FELT LIKE HEART ATTACK rabeprazole [From ACIPHEX] Allergy (Intermediate, Verified 02/14/23 12:47) FELT AWFUL rosuvastatin [Crestor] Allergy (Intermediate, Verified 02/14/23 12:47) severe back pain salmeterol [From Advair Diskus] Allergy (Intermediate, Verified 02/14/23 12:47) Redness of Skin telmisartan [From MICARDIS] Allergy (Intermediate, Verified 02/14/23 12:47) DIFF BREATHING topiramate [From TOPAMAX] Allergy (Intermediate, Verified 02/14/23 12:47) HYPERTENSION tramadol [TRAMADOL] Allergy (Intermediate, Verified 02/14/23 12:47) DOES NOT LIKE Iodinated Contrast Media [IV Dye, Iodine Containing] Allergy (Mild, Verified 02/14/23 12:47) HEADACHE,SOB,LIP SWELLING ciprofloxacin [From Cipro] Adverse Reaction (Mild, Verified 02/14/23 12:47) ANXIETY clarithromycin [From Biaxin] Adverse Reaction (Mild, Verified 02/14/23 12:47) NAUSEA AND VOMITING pantoprazole [From Protonix] Adverse Reaction (Mild, Verified 02/14/23 12:47) NAUSEA AND VOMITING HPI HPI Comments History of Present Illness Details Dixie is a very pleasant 78-year-old female who presented to the office today for evaluation management of her chronic lower back pain. Patient reports she has been suffering with pain to her upper middle and lower back for the last couple years. She also reports vertigo, vestibular headaches, bilateral lower extremity peripheral edema with erythema to the right harkins that all started after she received her COVID booster in 2020. Patient is followed by Neurology and until recently was seeing Rheumatology. Her medical malpractice paralegal moved out of state and she had 1 visit with a different medical malpractice paralegal but did not go back for follow-up. Patient has completed vestibular rehab for her vertigo but she has never done physical therapy for her neck or back. She has not tried chiropractor, acupuncture, massage or injections. Patient states she has stage 3 kidney disease and is not able to take nonsteroidal anti-inflammatory medications. She does use lidocaine patches, topical ointment and applies heat with some improvement of her pain that is not sustained. Pain is constant throughout the day, rated today as 8/10. Patient ambulates with a cane. Patient states her primary care doctor is aware of the bilateral put peripheral edema with right harkins erythema. She has been treated for cellulitis in the past without improvement. She had ultrasound, results in the chart negative for DVT. She states PCP has yet to refer her to vascular. Patient denies red flag symptoms including new loss of bowel, bladder or saddle anesthesia. In terms of muscle damage condition is described as aching, cramping, numb, stabbing, sharp, shock-like. Pain is negatively impacting patient's enjoyment of life, general activity, normal work, walking and ability to do housework. [facility] Medical History Lower extremity edema COPD (chronic obstructive pulmonary disease) Left wrist pain Skin tear of right elbow without complication Right wrist pain Right elbow pain Osteoporosis Bronchitis Dizziness Morbid obesity Cellulitis of right leg Post herpetic neuralgia Bladder pain Hypothyroidism Heart murmur Vitamin D deficiency Vitamin D deficiency T2DM (type 2 diabetes mellitus) Hiatal hernia Bronchiectasis GWEN (obstructive sleep apnea) Fatty liver Diabetes type 2, controlled Obesity ANTONY (dyspnea on exertion) Chest pain Hyperlipidemia HTN (hypertension) GWEN on CPAP Asthma-COPD overlap syndrome Hypogammaglobulinemia Surgical History Retinal detachment H/O total hysterectomy with bilateral salpingo-oophorectomy (BSO) Family History Father CVD (cardiovascular disease) Myocardial infarction Mother Breast cancer Diabetes mellitus Sister Cancer Kidney stone Son No problems noted. Social History Household Members: None Housing: Apartment Are you a primary field care coordinator to a significant other at home: No Do you presently have visiting nurse or other home services: No Alcohol intake: never Patient Tobacco Use Status: Former Tobacco user e-Cigarette/Vaping Use: Never Used Second Hand Smoke Exposure: No service: No Current occupational status: disabled Cognitive needs: Yes Hearing needs: No Vision needs: Yes Review of Systems Const All systems reviewed & are unremarkable except as noted in HPI and below Physical Exam Vital Signs: Last Vital Signs Pulse 86 01/03/24 13:22 Resp 16 03/13/23 13:22 BP 151/68 H 03/13/23 13:22 Pulse Ox 95 03/13/23 13:22 Oxygen Delivery Method Room Air 03/13/23 13:22 BMI result Body Mass Index 39.9 General: awake, alert, oriented. Answers questions appropriately. Fully engaged in examination. Skin: warm, dry, intact HEENT: Normocephalic. Hearing intact. Cardiac: External chest normal in appearance. Respiratory: No cough, audible wheezing or stridor. Abdomen: without gross distension. MS: No obvious swelling or deformities. Able to transition from sit to stand unassisted. Ambulates with bilaterally normal heel strike and toe off Tenderness to palpation middle trapezius bilaterally Tender to palpation across the lower back Range of motion intact Facet loading positive bilaterally SLR negative bilaterally Neurological: Oriented to person, place, time and situation. Thought process intact. Ambulates with the use of a cane Psychiatric: Appropriate mood and affect. Good judgment and insight. Results Reviewed Results Reviewed: Assessment & Plan Assessment & Plan (1) Muscle pain, lumbar: Code(s): M79.18 - Myalgia, other site (2) Cervical spondylosis: Code(s): M47.812 - Spondylosis without myelopathy or radiculopathy, cervical region (3) Lumbar spondylosis: Code(s): M47.816 - Spondylosis without myelopathy or radiculopathy, lumbar region (4) Polyarthralgia: Code(s): M25.50 - Pain in unspecified joint Plan Dixie is a very pleasant 78-year-old female who presents to the office today for evaluation management of her chronic lower back pain. Patient is unable to take nonsteroidal anti-inflammatory medications due to stage 3 kidney disease. Discussed muscle relaxers, patient with numerous allergies and overall intolerance to medications. She would like to hold off on muscle relaxers at this time. Order placed for PT eval and treat. Patient requesting a physical print out so she can take it to PT office of her choice. She has been [place] [facility] [place] in the past and does not tolerate the location of their office. Patient will follow-up in the office after physical therapy, sooner if needed. Orders: Orders PT Evaluation and Treatment Today M47.812 - Spondylosis without myelopathy or radiculopathy, cervical region, M47.816 - Spondylosis without myelopathy or radiculopathy, lumbar region, M79.18 - Myalgia, other site Coding Level of Care Code New Pt Level 4 (08263) Diagnoses Muscle pain, lumbar M79.18 Cervical spondylosis M47.812 Lumbar spondylosis M47.816 Polyarthralgia M25.50
[2023-03-13 13:22] VITALS: BP 151/68; PULSE 86; RESP 16; O2SAT 95; BMI 39.9
== END 2023-03-13 13:56 | disposition home or self-care (01) ==
PROVIDERS: PCP Internal Medicine; Visit Provider Registered Nurse Emergency
DX: M79.18 Myalgia, other site (principal); M47.812 Spondylosis without myelopathy or radiculopathy, cervical region; M47.816 Spondylosis without myelopathy or radiculopathy, lumbar region; M25.50 Pain in unspecified joint
CPT/HCPCS: 99204

== ENCOUNTER 2023-04-10 11:44 | Outpatient (AMB) | payer MEDICARE, MEDICAID, SELFPAY ==
--- NOTE | 2023-04-10 12:22 | MHC.PC.OV ---
Vital Signs 04/10/23 12:23 Height 5 ft 2 in Weight 218 lb BMI 39.9 BP 142/80 H Blood Pressure Location Lt brachial Position Sitting Pulse 81 Pulse Source Pulse Oximeter Pulse Oximetry (%) 97 Oxygen Delivery Method Room Air Intake Visit Reasons: Establish Care (Dean former PCP) Intake Note: pt is here for establish care, transfer from dr figueroa Regulatory Intern Required: No Accompanied by: Self / Same As Patient Allergies amoxicillin [AMOXICILLIN] Allergy (Severe, Verified 04/10/23 12:56) NAUSEA & VOMITING atorvastatin [Lipitor] Allergy (Severe, Verified 04/10/23 12:56) severe back pain Biaxin Allergy (Severe, Verified 04/10/23 12:56) Anaphylaxis budesonide [Symbicort] Allergy (Severe, Verified 04/10/23 12:56) shortness of breath celecoxib [From CELEBREX] Allergy (Severe, Verified 04/10/23 12:56) HEART RACING clavulanic acid [From AUGMENTIN] Allergy (Severe, Verified 04/10/23 12:56) FEELS WIERD diazepam [Valium] Allergy (Severe, Verified 04/10/23 12:56) heart rate esomeprazole [Nexium] Allergy (Severe, Verified 04/10/23 12:56) back pain ezetimibe [Zetia] Allergy (Severe, Verified 04/10/23 12:56) anaphylaxis famotidine [Pepcid] Allergy (Severe, Verified 04/10/23 12:56) Back Pain irbesartan [Avapro] Allergy (Severe, Verified 04/10/23 12:56) Stomach Pain nitrofurantoin [Macrobid] Allergy (Severe, Verified 04/10/23 12:56) Stomach Pain shellfish derived Allergy (Severe, Verified 04/10/23 12:56) ANAPHYLAXIS Sulfa (Sulfonamide Antibiotics) Allergy (Severe, Verified 04/10/23 12:56) ANAPHYLAXIS, tongue swelling fluticasone [From Advair Diskus] Allergy (Intermediate, Verified 04/10/23 12:56) Redness of Skin formoterol [Symbicort] Allergy (Intermediate, Verified 04/10/23 12:56) shortness of breath latex [LATEX] Allergy (Intermediate, Verified 04/10/23 12:56) RASH levofloxacin [From LEVAQUIN] Allergy (Intermediate, Verified 04/10/23 12:56) DOES FEEL GOOD metformin Allergy (Intermediate, Verified 04/10/23 12:56) diarrhea pregabalin [From LYRICA] Allergy (Intermediate, Verified 04/10/23 12:56) FELT LIKE HEART ATTACK rabeprazole [From ACIPHEX] Allergy (Intermediate, Verified 04/10/23 12:56) FELT AWFUL rosuvastatin [Crestor] Allergy (Intermediate, Verified 04/10/23 12:56) severe back pain salmeterol [From Advair Diskus] Allergy (Intermediate, Verified 04/10/23 12:56) Redness of Skin telmisartan [From MICARDIS] Allergy (Intermediate, Verified 04/10/23 12:56) DIFF BREATHING topiramate [From TOPAMAX] Allergy (Intermediate, Verified 04/10/23 12:56) HYPERTENSION tramadol [TRAMADOL] Allergy (Intermediate, Verified 04/10/23 12:56) DOES NOT LIKE Iodinated Contrast Media [IV Dye, Iodine Containing] Allergy (Mild, Verified 04/10/23 12:56) HEADACHE,SOB,LIP SWELLING ciprofloxacin [From Cipro] Adverse Reaction (Mild, Verified 04/10/23 12:56) ANXIETY clarithromycin [From Biaxin] Adverse Reaction (Mild, Verified 04/10/23 12:56) NAUSEA AND VOMITING pantoprazole [From Protonix] Adverse Reaction (Mild, Verified 04/10/23 12:56) NAUSEA AND VOMITING Medication List - Last Reconciled 04/10/23 by Dora Infante MD acetaminophen 325 mg PO Q4-6H PRN azithromycin 250 mg PO 3XW 90 days blood pressure monitor As directed blood sugar diagnostic (FreeStyle Lite Strips) check blood sugar once daily cranberry extract 500 mg PO BID epinephrine 0.15 mg (0.3 mL) IM Q30M PRN 30 days fluticasone furoate 27.5 mcg/actuation 2 sprays intranasal DAILY 90 days fluticasone propionate 220 mcg/actuation 2 puffs PO BID 90 days lactobacillus combination no.9 (Adult 50 Plus Probiotic) 4,000 mmu cells PO DAILY lancets (FreeStyle Lancets) Freestyle Lite- check blood sugar daily lansoprazole (Prevacid) 30 mg PO DAILY levalbuterol HCl (Xopenex) 1.25 mg inhalation Q4H PRN levalbuterol tartrate 45 mcg/actuation (Xopenex HFA) 45 mcg inhalation DAILY PRN levothyroxine (Synthroid) 125 mcg PO DAILY lidocaine 5% 1 patch topical DAILY lisinopril 40 mg PO DAILY multivitamin 1 tab PO DAILY nebulizers As directed nystatin (Nyamyc) 1 appl topical DAILY 30 days Synthroid (levothyroxine) 137 mcg PO QAM NS verapamil ER (Verelan PM) 300 mg PO BEDTIME walker (Ultra-Light Rollator misc) As directed Tobacco use date assessed: 04/10/23 Fall risk assessment: No Falls in past year Last assessed Fall Risk: 04/10/23 Dental Screening Dental Screen Date: 04/10/23 Did you have a dental visit in the last 12 months?: Yes Did you have a dental problem in the last 6 months where you did not have access to dental care?: No Was dental information given to patient?: Patient has dentist HPI Establish Care (Dean former PCP) HPI Details 78-year-old lady, transfer from Dr. Figueroa, with an extensive medical history, here today complaining of positional lightheadedness, triggered by pending down or turning her head abruptly from side to side. Has had in the past but has now again recurred. This was accompanied by some nausea but no vomiting, no falls. Denies any accompanying chest pain, no shortness of breath. Requesting to be referred again for vestibular rehab therapy at [facility] in [facility] Medical History (Updated 04/15/23 @ 03:08 by Dora Infante MD) Positional lightheadedness COPD (chronic obstructive pulmonary disease) Skin tear of right elbow without complication Morbid obesity Post herpetic neuralgia Hypothyroidism Heart murmur Vitamin D deficiency Hiatal hernia Bronchiectasis GWEN (obstructive sleep apnea) Fatty liver Diabetes type 2, controlled Obesity Hyperlipidemia HTN (hypertension) GWEN on CPAP Asthma-COPD overlap syndrome Hypogammaglobulinemia Surgical History Retinal detachment H/O total hysterectomy with bilateral salpingo-oophorectomy (BSO) Family History Father CVD (cardiovascular disease) Myocardial infarction Mother Breast cancer Diabetes mellitus Sister Cancer Kidney stone Son No problems noted. Social History Household Members: None Housing: Apartment Are you a primary adult daycare coordinator to a significant other at home: No Do you presently have visiting nurse or other home services: No Alcohol intake: never Patient Tobacco Use Status: Former Tobacco user e-Cigarette/Vaping Use: Never Used Second Hand Smoke Exposure: No service: No Current occupational status: disabled Cognitive needs: Yes Hearing needs: No Vision needs: Yes Questionnaire PHQ-9 Over the last 2 weeks, how often have you been bothered by any of the following problems? 1. Little interest or pleasure in doing things: not at all 2. Feeling down, depressed, or hopeless: not at all 3. Trouble falling or staying asleep, or sleeping too much: not at all 4. Feeling tired or having little energy: not at all 5. Poor appetite or overeating: not at all 6. Feeling bad about yourself - or that you are a failure or have let yourself or your family down: not at all 7. Trouble concentrating on things, such as reading the newspaper or watching television: not at all 8. Moving or speaking so slowly that other people could have noticed. Or the opposite - being so fidgety or restless that you have been moving around a lot more than usual: not at all 9. Thoughts that you would be better off or of hurting yourself in some way: not at all Total score: 0 Depression Screening Interpretation: Negative Depression Screening Done: Yes 88304 - PHQ-9 Billing: Yes Source: Developed by Drs. Carroll Shah, Isabella Luz, Ion Pool and colleagues, with an educational portillo from [employer]. Thrive Questionnaire Date Thrive assessed: 04/10/23 I am a: Patient What is your living situation today?: I have a steady place to live Within the past 12 months, did the food you bought not last and you didn't have the money to get more?: Never true Within the past 12 months, did you worry whether your food would run out before you got money to buy more?: Never true Do you have trouble paying for medicines?: No Do you have trouble getting transportation to medical appointments?: No Do you have trouble paying your heating and electricity bill?: No Do you have trouble taking care of your child, family member or friend?: No Do you have trouble with day-to-day activities such as bathing, preparing meals, shopping, managing finances, etc.?: No Are you currently unemployed and looking for a job?: No Are you interested in more education?: No Please select the resources that you would like help with: None Currently or been in a relationship where the following occur: no concerns reported THRIVE Score: 0 KYLIE-7 AMB Questionnaire KYLIE-7 Date KYLIE - 7 assessed: 04/10/23 Feeling nervous, anxious, or on edge: 0 = Not at all Not being able to stop or control worryin = Not at all Worrying too much about different things: 0 = Not at all Trouble relaxin = Not at all Being so restless that it is hard to sit still: 0 = Not at all Becoming easily annoyed or irritable: 0 = Not at all Feeling afraid as if something awful might happen: 0 = Not at all Total KYLIE-7 score (0-4 normal; 5-9 mild; 10-14 moderate; 15-21 severe): 0 Source: Developed by Drs. Carroll Shah, Isabella Luz, Ion Pool and colleagues, with an educational portillo from [employer]. KYLIE-7 Assessment Billing KYLIE-7 Assessment Tool: KYLIE-7 Assessment 33197 Review of Systems Const Reports no additional complaints Eyes Reports no additional complaints, Denies change in vision and Denies other visual disturbances ENT Reports as per HPI Card Denies chest pain at rest, Denies chest pain with activity, Denies edema, Denies irregular heart rhythm, Denies dyspnea and Denies dyspnea on exertion Resp Denies cough, Denies dyspnea and Denies dyspnea on exertion GI Denies abdominal pain, Denies change in bowel habits, Denies excessive flatus, Denies nausea and Denies vomiting Denies urinary incontinence, Denies urinary hesitancy and Denies urinary urgency Musc Denies abnormal gait, Denies atrophy, Denies deformity and Denies limited range of motion Skin/Breast Denies bleeding lesions, Denies changing lesions and Denies rash Neuro Denies abnormal gait, Denies behavioral changes, Denies confusion and Denies lack of coordination Psych Denies behavioral changes and Denies confusion Endo Reports no additional complaints Kvng/Lymph Reports no additional complaints Physical exam (Primary Care) Vital Signs: Last Vital Signs Pulse 81 04/10/23 12:23 BP 142/80 H 04/10/23 12:23 Pulse Ox 97 04/10/23 12:23 Oxygen Delivery Method Room Air 04/10/23 12:23 BMI result Body Mass Index 39.9 Tobacco/Smoking Status: Tobacco use Status Tobacco use date assessed 04/10/23 04/10/23 12:33 Patient Tobacco Use Status Former Tobacco user 04/10/23 12:22 e-Cigarette/Vaping Use Never Used 04/10/23 12:22 PHQ-9: PHQ-9 Score PHQ-9: Total score 0 04/10/23 14:02 Depression Screening Interpretation: Negative Thrive Assessment: Date of Thrive Assessment Date Thrive assessed 04/10/23 04/10/23 12:39 Currently or been in a relationship where the following occur: no concerns reported Const General: No confusion Orientation/consciousness: patient oriented x3 and No confusion HENMT Head: Yes normocephalic and Yes atraumatic Ears: external ears normal, TM's normal bilaterally and EAC's normal General nose exam: Normal external nose present Face and sinus: Yes face symmetric Mouth: Normal oral and palatal mucosa present, oropharynx normal and moist mucous membranes Eyes General: appearance normal, both eyes and all related structures Eyelids: Yes eyelids normal Conjunctivae: conjunctivae normal Neck Neck: Yes normal visual inspection, Yes full ROM and Yes supple Resp Effort & Inspection: normal respiratory effort Auscultation: clear to auscultation bilaterally Cardio Jugular venous distension: no JVD Rate: regular rate Rhythm: regular rhythm Heart sounds: S1 normal heart sound present and S2 normal heart sound present GI Inspection: Yes normal to inspection Palpation (GI): Soft to palpation and nontender Auscultation: normal bowel sounds Skin General skin exam: no rashes or lesions noted Neuro General: patient oriented x3, gait normal, tone normal, moves all extremities, no focal motor deficits and No confusion Extrem General: Yes full ROM Psych Appearance: grossly normal and well kempt Mental Status: mental status grossly normal Speech and movement: Normal speech and movement present Affect: normal affect Thought process: Normal thought process present Assessment and Plan Assessment & Plan (1) Positional lightheadedness: Code(s): R42 - Dizziness and giddiness Plan: Referred to [facility] in [place], per patient request, for evaluation management of possible benign positional vertigo Orders: Orders PT Evaluation and Treatment 04/10/23 R42 - Dizziness and giddiness Coding Level of Care Code Est Pt Level 3 (79214) Diagnoses Positional lightheadedness R42 Additional Codes KYLIE-7 Assessment Billing - KYLIE-7 Assessment Tool: KYLIE-7 Assessment 27709 ([id number])
[2023-04-10 12:23] VITALS: BP 142/80; PULSE 81; O2SAT 97; BMI 39.9
== END 2023-04-10 14:31 | disposition home or self-care (01) ==
PROVIDERS: PCP Internal Medicine; Visit Provider Internal Medicine
DX: R42 Dizziness and giddiness (principal)
CPT/HCPCS: 99213

== ENCOUNTER 2023-07-04 15:09 | Outpatient (AMB) | payer MEDICARE, MEDICAID, SELFPAY ==
[2023-07-04 15:28] VITALS: PULSE 89; O2SAT 98; BMI 38.6
--- NOTE | 2023-07-04 15:28 | A.OFFVIS_ITS ---
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 Allergies amoxicillin [AMOXICILLIN] Allergy (Severe, Verified 07/04/23 15:29) NAUSEA & VOMITING atorvastatin [Lipitor] Allergy (Severe, Verified 07/04/23 15:29) severe back pain Biaxin Allergy (Severe, Verified 07/04/23 15:29) Anaphylaxis budesonide [Symbicort] Allergy (Severe, Verified 07/04/23 15:29) shortness of breath celecoxib [From CELEBREX] Allergy (Severe, Verified 07/04/23 15:29) HEART RACING clavulanic acid [From AUGMENTIN] Allergy (Severe, Verified 07/04/23 15:29) FEELS WIERD diazepam [Valium] Allergy (Severe, Verified 07/04/23 15:29) heart rate esomeprazole [Nexium] Allergy (Severe, Verified 07/04/23 15:29) back pain ezetimibe [Zetia] Allergy (Severe, Verified 07/04/23 15:29) anaphylaxis famotidine [Pepcid] Allergy (Severe, Verified 07/04/23 15:29) Back Pain irbesartan [Avapro] Allergy (Severe, Verified 07/04/23 15:29) Stomach Pain nitrofurantoin [Macrobid] Allergy (Severe, Verified 07/04/23 15:29) Stomach Pain shellfish derived Allergy (Severe, Verified 07/04/23 15:29) ANAPHYLAXIS Sulfa (Sulfonamide Antibiotics) Allergy (Severe, Verified 07/04/23 15:29) ANAPHYLAXIS, tongue swelling fluticasone [From Advair Diskus] Allergy (Intermediate, Verified 07/04/23 15:29) Redness of Skin formoterol [Symbicort] Allergy (Intermediate, Verified 07/04/23 15:29) shortness of breath latex [LATEX] Allergy (Intermediate, Verified 07/04/23 15:29) RASH levofloxacin [From LEVAQUIN] Allergy (Intermediate, Verified 07/04/23 15:29) DOES FEEL GOOD metformin Allergy (Intermediate, Verified 07/04/23 15:29) diarrhea pregabalin [From LYRICA] Allergy (Intermediate, Verified 07/04/23 15:29) FELT LIKE HEART ATTACK rabeprazole [From ACIPHEX] Allergy (Intermediate, Verified 07/04/23 15:29) FELT AWFUL rosuvastatin [Crestor] Allergy (Intermediate, Verified 07/04/23 15:29) severe back pain salmeterol [From Advair Diskus] Allergy (Intermediate, Verified 07/04/23 15:29) Redness of Skin telmisartan [From MICARDIS] Allergy (Intermediate, Verified 07/04/23 15:29) DIFF BREATHING topiramate [From TOPAMAX] Allergy (Intermediate, Verified 07/04/23 15:29) HYPERTENSION tramadol [TRAMADOL] Allergy (Intermediate, Verified 07/04/23 15:29) DOES NOT LIKE Iodinated Contrast Media [IV Dye, Iodine Containing] Allergy (Mild, Verified 07/04/23 15:29) HEADACHE,SOB,LIP SWELLING ciprofloxacin [From Cipro] Adverse Reaction (Mild, Verified 07/04/23 15:29) ANXIETY clarithromycin [From Biaxin] Adverse Reaction (Mild, Verified 07/04/23 15:29) NAUSEA AND VOMITING pantoprazole [From Protonix] Adverse Reaction (Mild, Verified 07/04/23 15:29) NAUSEA AND VOMITING HPI Comments Details: The patient is a 78 y/o woman with a history of obstructive sleep apnea on CPAP in addition to intrinsic asthma and also hypogammaglobulinemia. She did see her lab systems analyst. She was placed on Symbicort and she had an adverse reaction with shortness of breath. Therefore, she will continue on the Flovent. She does have Xopenex. She does have episodes of shortness of breath at night time and now she knows that she is going to use the Xopenex. She did have an ultrasound to abnormal blood work demonstrating that she does have a gallbladder polyp. She is working closely with her kaiako kura kaupapa maori for this. Having some nasal congestion and some upper airway secretions. Did do an x-ray in the x-ray was clear. She did finish a couple courses of antibiotics. She is immunocompromised and she knows that she does not clear infections quickly. She still has a cough and also has some chest tightness. But overall better than before. She continues uses CPAP. The CPAP therapy continues to be affecting beneficial. She does use it for more than 4 hours a night. 07/26/2022 the patient is here for a pulmonary follow-up visit. The patient has multiple complaints. She is struggling with the CPAP. She is tolerating the nasal pillows although she sometimes he gets any nasal congestion can tolerated. I did provide her with an F 30 I mask with a fullface mask. Size small. Seem to fit well. I did set up her machine for the fullface mask and cap the pressures the same 6-14. Her average pressure is 10 and her AHI was well below 1. I would was reassuring to her that the therapy has been working well. She needs to make sure she uses the machine 4 hours a night so it she can get the best effect from the machine. Hopefully with a full face much she can tolerate it better. She is doing well from a respiratory status. She is using inhalers every other day which seem to be helping decreasing hoarseness and tolerating them better. No significant wheezing or rhonchi that she can not complain about. She has not had any recent infections. She is using a mask the patient had a CT scan of the chest ordered by a different provider. It demonstrated some smile areas of atelectasis at the base. Otherwise no nodules of bronchiectasis appreciated. This is reassuring. However, the patient did have moderate degree of coronary artery calcifications. She was supposed to have a cardiac stress test. But she is concerned about adverse effects. I had recommended a Jolly nuclear stress test that she should be able to handle. For some reason she was not able to have a nuclear stress test. The patient needs to continue with wrist management as far as decreasing her cardiac risk and therefore using the CPAP therapy will be very important. Other risk modifications she can discuss with brick setter operator and primary care. The patient does complaint of significant lower extremity edema. Appears to be symmetrical with her blood I leg being significantly swollen. Will be reasonable to do an ultrasound to rule out DVT. 10/15/2022 the patient is here for pulmonary follow-up visit. She has worsening respiratory symptoms. Has been having increasing wheezing for the last week. The patient has been using her nebulizer treatments several times a day. She is on maximal respiratory therapy. She has a hard time tolerating multiple inhalers and therefore the for have some limitations. The patient has been assessed for biologic therapy but the patient does not qualify. She is going to require additional prednisone at this time. She is reluctant to use is and she has had bad adverse effects in the past. Think she is also will be a good candidate for Daliresp. Specially because the fact she can not tolerate prednisone and frequent exacerbations. The patient also has significant immunodeficiency. She has been on prophylactic antibiotics. She has had increased chest congestion. Therefore, will switch her antibiotics over to dox ycycline to make sure there were covering for for a lower respiratory infection. She still has lower extremity edema. She does have follow-up with brick setter operator. Her lower extremity Dopplers were negative for DVT. The patient has been using her CPAP although she feels more congested after using it. We did download her machine. She is using more than 4 hours a night. His AHI is down to 1. I did adjust her pressures from 6-16 to 8 to 11 cm. 01/01/2023 the patient is here for a pulmonary follow-up visit. Since we last spoke she is been having a lot issues with dizziness vertigo migraines and falls. She is been very unsteady on her feet. She is following closely with Neurology. During the last visit back in October she was having issues with a underlying respiratory infection. She did take prednisone while on the prednisone her symptoms significantly improved. She does have nasal congestion now and nasal sinus pressure. She does have a pressure the years. The patient does have very retracted eardrums and significant erythema of the nasal turbinates. Likely a component of rhinosinusitis. This could be indirectly affecting her Dizziness symptoms. The patient has been using her respiratory therapy. She has not required her rescue inhaler. She continues uses CPAP every night. We did review the download. She does use it for more than 4 hours a night and her AHI is down to 1.2. Therefore she will continue with the current settings. She is doing really good on the CPAP at this time. She also finds it very effective in beneficial. 07/04/2023 the patient is here for a pulmonary follow-up visit. She has been having some issues with her insurance. She lost her [employer] and therefore she has been having difficulties with medication cost and other medical cost. She is currently appealing that decision. In the meantime she continues use her CPAP. The CPAP therapy continues to be affecting beneficial. She does use it for more than 4 hours a night. The patient also has been using her inhalers. Recently she did get a new prescription of QVAR. She is going to start that new. She did not tolerate the generic Flovent. She does have the immunodeficiency has been responding well to the azithromycin 3 times a week. She has been noticing increasing shortness of breath and chest tightness. She has not started the QVAR just yet although she does have wheezing on examination. I will give her a prednisone taper that she can start if her symptoms worsen and or she does not respond to the QVAR. [facility] Medical History (Updated 04/15/23 @ 03:08 by Dora Infante MD) Positional lightheadedness COPD (chronic obstructive pulmonary disease) Skin tear of right elbow without complication Morbid obesity Post herpetic neuralgia Hypothyroidism Heart murmur Vitamin D deficiency Hiatal hernia Bronchiectasis GWEN (obstructive sleep apnea) Fatty liver Diabetes type 2, controlled Obesity Hyperlipidemia HTN (hypertension) GWEN on CPAP Asthma-COPD overlap syndrome Hypogammaglobulinemia Surgical History Retinal detachment H/O total hysterectomy with bilateral salpingo-oophorectomy (BSO) Family History Father CVD (cardiovascular disease) Myocardial infarction Mother Breast cancer Diabetes mellitus Sister Cancer Kidney stone Son No problems noted. Social History Household Members: None Housing: Apartment Are you a primary child day care center worker to a significant other at home: No Do you presently have visiting nurse or other home services: No Alcohol intake: never Patient Tobacco Use Status: Former Tobacco user e-Cigarette/Vaping Use: Never Used Second Hand Smoke Exposure: No service: No Current occupational status: disabled Cognitive needs: Yes Hearing needs: No Vision needs: Yes Review of Systems Const Denies body aches, Denies chills, Denies fatigue and Denies fever(s) Eyes Denies change in vision ENT Reports vertigo, Reports dizziness, Denies otalgia, Reports nasal congestion, Reports nasal discharge, Reports nasal obstruction, Reports sinus pressure and Denies sore throat Card Denies chest pain, Denies edema, Reports leg edema (R>L), Denies lighth eadedness, Denies dyspnea and Reports dyspnea on exertion Resp Denies chest congestion, Reports cough, Denies dyspnea, Reports dyspnea on exertion and Reports wheezing GI Denies abdominal pain, Denies constipation, Denies diarrhea, Denies nausea and Denies vomiting Denies hematuria, Denies dysuria and Denies flank pain Musc Details: Bilateral lower extremity redness and swelling R>L Reports back pain, Denies myalgias, Denies arthralgias, Denies joint swelling, Denies numbness and Denies tingling Skin/Breast Denies lesions and Denies rash Neuro Denies confusion, Reports vertigo, Reports dizziness, Denies numbness and Denies tingling Psych Denies confusion Endo Denies fatigue Aller/Immun Reports wheezing Physical Exam Vital Signs: Last Vital Signs Pulse 89 07/04/23 15:28 Pulse Ox 98 07/04/23 15:28 Oxygen Delivery Method Room Air 07/04/23 15:28 BMI result Body Mass Index 38.6 Const General: No confusion Orientation/consciousness: No confusion HEENT Ears: TM abnormal retracted General nose exam: Abnormal mucous membranes and turbinates present erythematous Neck Neck: Yes normal visual inspection, Yes full ROM and Yes no lymphadenopathy Chest Chest palpation & inspection: normal inspection of the chest Resp Effort & Inspection: normal respiratory effort Auscultation: no wheezes and diminished lung sounds Cardio Rate: regular rate Rhythm: regular rhythm Heart sounds: S1 normal heart sound present and S2 normal heart sound present GI Palpation (GI): Soft to palpation and nontender Auscultation: normal bowel sounds Skin General skin exam: rashes and/or lesions noted Neuro General: No confusion Extrem General: Yes edema (R>>L) Assessment & Plan Assessment & Plan (1) COPD (chronic obstructive pulmonary disease): Code(s): J44.9 - Chronic obstructive pulmonary disease, unspecified Category: Medical Qualifiers: COPD type: COPD with acute exacerbation Qualified Code(s): J44.1 - Chronic obstructive pulmonary disease with (acute) exacerbation (2) GWEN (obstructive sleep apnea): Code(s): G47.33 - Obstructive sleep apnea (adult) (pediatric) Category: Medical (3) Asthma-COPD overlap syndrome: Code(s): J44.9 - Chronic obstructive pulmonary disease, unspecified Category: Medical (4) Hypogammaglobulinemia: Code(s): D80.1 - Nonfamilial hypogammaglobulinemia Category: Medical (5) Lower extremity edema: Code(s): R60.0 - Localized edema Category: Medical Plan continue QVAR Xopenex as needed continue spiriva continue Azithromycin MWF start low dose prednisone taper if no better Continue CPAP therapy with 2L/min oxygen, provided F30i small mask. Needs to use it at least 4 hours while sleeping. Adjusted APAP 8-11, ramp 6 continue oxygen therapy while sleeping. Therapy effective and beneficial F/U 4-6 months Medications: New 2 prednisone PO daily; Take 2 tabs daily x 7 days, then 1 tab daily x 7 days 21 tabs 1RF 14 days Refilled azithromycin Take 1 tablet on Saturday/Saturday/Saturday 250 mg PO 3XW 39 tabs 3RF 90 days K21.9 - Gastro-esophageal reflux disease without esophagitis Coding Level of Care Code Est Pt Level 4 (33802) Diagnoses Chronic obstructive pulmonary disease with acute exacerbation J44.1 COPD type: COPD with acute exacerbation GWEN (obstructive sleep apnea) G47.33 Asthma-COPD overlap syndrome J44.9 Hypogammaglobulinemia D80.1 Lower extremity edema R60.0 Time Spent (min) 18
== END 2023-07-04 16:01 | disposition home or self-care (01) ==
PROVIDERS: PCP Pediatrics; Visit Provider Hospitalist
DX: J44.1 Chronic obstructive pulmonary disease with (acute) exacerbation (principal); G47.33 Obstructive sleep apnea (adult) (pediatric); J44.9 Chronic obstructive pulmonary disease, unspecified; D80.1 Nonfamilial hypogammaglobulinemia; R60.0 Localized edema
CPT/HCPCS: 99214

== ENCOUNTER → 2023-07-04 15:09 | Outpatient (BNVA) | payer MEDICARE, MEDICAID, SELFPAY | PROVIDERS: PCP Internal Medicine; Visit Provider Hospitalist | DX: J44.1 Chronic obstructive pulmonary disease with (acute) exacerbation (principal); G47.33 Obstructive sleep apnea (adult) (pediatric); D80.1 Nonfamilial hypogammaglobulinemia; R60.0 Localized edema | CPT/HCPCS: 99212 ==

== ENCOUNTER 2023-10-09 16:43 | Emergency (ER) | payer MEDICARE, MEDICAID, SELFPAY ==
--- NOTE | ~2023-10-09 | US_ITS ---
EXAMINATION: US VENOUS ULTRASOUND WITH DOPPLER LOWER EXTREMITY, RIGHT CLINICAL INFORMATION: Right leg edema and pain COMPARISON: None available. TECHNIQUE: Ultrasound of the deep veins is performed from the hip to the calf with compression sonography and color and pulse Doppler assessment. Spectral analysis with color-flow imaging is performed. FINDINGS: There is normal venous compression and respiratory variation and augmented flow. The visualized common femoral vein, superficial femoral vein, profunda femoral vein, popliteal vein, and the trifurcation region shows no evidence of deep venous thrombosis. A 4.3 x 0.8 x 1.3 cm Garnett's cyst is present. The left common femoral vein appears normal. If the patient's symptoms persist, followup ultrasound in 5 days 7 days might be of value to exclude proximal propagation from a non-visualized calf vein. US/US venous duplex LE RT IMPRESSION: No DVT demonstrated in the right lower extremity.
[2023-10-09 16:52] VITALS: BP 161/61; PULSE 116; RESP 20; TEMP 37.1; O2SAT 97; BMI 38.6
--- NOTE | 2023-10-09 16:53 | ED_ITS ---
HPI - Extremity Injury (Lower) General Chief Complaint: Extremity Problem Stated Complaint: Tachycardia? Sent by urgent care Time Seen by Provider: 10/09/23 17:16 Source: patient Mode of arrival: ambulatory Limitations: no limitations History of Present Illness HPI Narrative: Patient is a 78-year-old female who presents emergency department for evaluation of right lower extremity redness and swelling. She reports a history of chronic swelling since 2020, ?after I got my booster shot?. She states that she went to her primary care doctor's office 2 days ago, as she noticed she was developing redness surrounding the lower aspect of her leg which is atypical for her. She reports that she was advised that she needed a vascular consult but has yet received any call from vascular office. She had someone come in today to establish services for a homemaker, she reports that she became very upset when the woman was reading off for past medical history which reportedly stated that she is an alcoholic and drug addict which she believes is not true and this made her very upset and she suspects that this is the reason for her tachycardia and her stress. She presented to an urgent care through [facility] today, was advised to come to the emergency department to rule out DVT. She does admit to having used her Xopenex inhaler which she to believes is increasing her heart rate. She denies associated chest pain, increased shortness of breath from her typical baseline, cough, hemoptysis, fevers, chills, numbness or tingling of the extremities. Related Data Home Medications ?Medication ?Instructions ?Recorded ?Confirmed levalbuterol HCl 1.25 mg/3 mL 1.25 mg inhalation Q4H PRN 05/12/20 02/14/23 solution for nebulization (Xopenex) Shortness Of Breath Or Wheezing lansoprazole 30 mg capsule,delayed 30 mg PO DAILY 09/20/20 02/14/23 release (Prevacid) levalbuterol tartrate 45 45 mcg inhalation DAILY PRN 11/29/21 02/14/23 mcg/actuation aerosol inhaler Shortness Of Breath Or Wheezing (Xopenex HFA) acetaminophen 325 mg tablet 325 mg PO Q4-6H PRN Pain 12/05/21 02/14/23 multivitamin 1 tab PO DAILY 12/05/21 02/14/23 cranberry extract 500 mg tablet 500 mg PO BID 01/25/22 02/14/23 lactobacillus combination no.9 4 4,000 mmu cells PO DAILY 01/25/22 02/14/23 billion cell capsule (Adult 50 Plus Probiotic) nebulizers 01/01/23 02/14/23 levothyroxine 125 mcg tablet 125 mcg PO DAILY 04/10/23 (Synthroid) beclomethasone dipropionate 80 inhalation 07/04/23 mcg/actuation HFA breath activated aerosol (Qvar RediHaler) hydralazine 25 mg tablet 25 mg PO TID 07/04/23 lisinopril 40 mg tablet 40 mg PO DAILY 07/04/23 Previous Rx's ?Medication ?Instructions ?Recorded fluticasone propionate 220 2 puff PO BID 90 days #3 ea 12/13/20 mcg/actuation HFA aerosol inhaler lidocaine 5 % topical patch 1 patch topical DAILY #90 patches 12/28/21 fluticasone furoate 27.5 2 spray intranasal DAILY 90 days 01/25/22 mcg/actuation nasal #3 ea spray,suspension walker (Ultra-Light Rollator [facility] [place] [place]) #1 ea 04/16/22 epinephrine 0.15 mg/0.3 mL 0.15 mg (0.3 mL) IM Q30M PRN 10/05/22 injection,auto-injector anaphylaxis 30 days #2 ea blood sugar diagnostic (FreeStyle #100 ea 11/13/22 Lite Strips) nystatin 100,000 unit/gram topical 1 appl topical DAILY 30 days #30 11/13/22 powder (Nyamy) grams blood pressure monitor #1 ea 11/16/22 Synthroid 137 mcg tablet 137 mcg PO QAM #90 tabs 04/08/23 (levothyroxine) verapamil 300 mg capsule 24hr 300 mg PO BEDTIME #90 caps 04/26/[address],ext.release (Verelan PM) lancets 28 gauge (FreeStyle #100 ea 05/09/23 Lancets) azithromycin 250 mg tablet 250 mg PO 3XW 90 days #39 tabs 07/04/23 prednisone 10 mg tablet See Rx Instructions PO DAILY 14 07/04/23 days #21 tabs cephalexin 500 mg capsule 500 mg PO TID #21 caps 10/09/23 Allergies Allergy/AdvReac Type Severity Reaction Status Date / Time amoxicillin [AMOXICILLIN] Allergy Severe NAUSEA & Verified 10/09/23 16:58 VOMITING atorvastatin [Lipitor] Allergy Severe severe Verified 10/09/23 16:58 back pain Biaxin Allergy Severe Anaphylaxis Verified 10/09/23 16:58 budesonide [Symbicort] Allergy Severe shortness Verified 10/09/23 16:58 of breath celecoxib [From CELEBREX] Allergy Severe HEART Verified 10/09/23 16:58 RACING clavulanic acid Allergy Severe FEELS WIERD Verified 10/09/23 16:58 [From AUGMENTIN] diazepam [Valium] Allergy Severe heart rate Verified 10/09/23 16:58 esomeprazole [Nexium] Allergy Severe back pain Verified 10/09/23 16:58 ezetimibe [Zetia] Allergy Severe anaphylaxis Verified 10/09/23 16:58 famotidine [Pepcid] Allergy Severe Back Pain Verified 10/09/23 16:58 irbesartan [Avapro] Allergy Severe Stomach Verified 10/09/23 16:58 Pain nitrofurantoin [Macrobid] Allergy Severe Stomach Verified 10/09/23 16:58 Pain shellfish derived Allergy Severe ANAPHYLAXIS Verified 10/09/23 16:58 Sulfa (Sulfonamide Allergy Severe ANAPHYLAXIS, Verified 10/09/23 16:58 Antibiotics) tongue swelling fluticasone Allergy Intermediate Redness of Verified 10/09/23 16:58 [From Advair Diskus] Skin formoterol [Symbicort] Allergy Intermediate shortness Verified 10/09/23 16:58 of breath latex [LATEX] Allergy Intermediate RASH Verified 10/09/23 16:58 levofloxacin [From LEVAQUIN] Allergy Intermediate DOES FEEL Verified 10/09/23 16:58 GOOD metformin Allergy Intermediate diarrhea Verified 10/09/23 16:58 pregabalin [From LYRICA] Allergy Intermediate FELT LIKE Verified 10/09/23 16:58 HEART ATTACK rabeprazole [From ACIPHEX] Allergy Intermediate FELT AWFUL Verified 10/09/23 16:58 rosuvastatin [Crestor] Allergy Intermediate severe Verified 10/09/23 16:58 back pain salmeterol Allergy Intermediate Redness of Verified 10/09/23 16:58 [From Advair Diskus] Skin telmisartan [From MICARDIS] Allergy Intermediate DIFF Verified 10/09/23 16:58 BREATHING topiramate [From TOPAMAX] Allergy Intermediate HYPERTENSIO Verified 10/09/23 16:58 N tramadol [TRAMADOL] Allergy Intermediate DOES NOT Verified 10/09/23 16:58 LIKE Iodinated Contrast Media Allergy Mild HEADACHE,SOB,LIP Verified 10/09/23 16:58 [IV Dye, Iodine Containing] SWELLING ciprofloxacin [From Cipro] AdvReac Mild ANXIETY Verified 10/09/23 16:58 clarithromycin [From Biaxin] AdvReac Mild NAUSEA AND Verified 10/09/23 16:58 VOMITING pantoprazole [From Protonix] AdvReac Mild NAUSEA AND Verified 10/09/23 16:58 VOMITING Review of Systems 2 Review of Systems: Yes all other systems are reviewed and are negative PMFSH Past Medical History Attestation statement: The following information was validated with the patient. Source: old records reviewed Medical History Positional lightheadedness COPD (chronic obstructive pulmonary disease) Skin tear of right elbow without complication Morbid obesity Post herpetic neuralgia Hypothyroidism Heart murmur Vitamin D deficiency Hiatal hernia Bronchiectasis GWNE (obstructive sleep apnea) Fatty liver Diabetes type 2, controlled Obesity Hyperlipidemia HTN (hypertension) GWEN on CPAP Asthma-COPD overlap syndrome Hypogammaglobulinemia Surgical History Retinal detachment H/O total hysterectomy with bilateral salpingo-oophorectomy (BSO) Family History Family History Father CVD (cardiovascular disease) Myocardial infarction Mother Breast cancer Diabetes mellitus Sister Cancer Kidney stone Son No problems noted. Social History Social History Household Members: None Housing: Apartment Are you a primary care program director to a significant other at home: No Do you presently have visiting nurse or other home services: No Alcohol intake: never Patient Tobacco Use Status: Former Tobacco user e-Cigarette/Vaping Use: Never Used Second Hand Smoke Exposure: No Advance Directives: No Advance Directives Information Provided: No service: No Current occupational status: disabled Cognitive needs: Yes Hearing needs: No Vision needs: Yes Physical Exam 2 Vital Signs: Vital Signs: Last Vital Signs Temp 98.2 F 10/09/23 17:30 Pulse 116 H 10/09/23 17:30 Resp 16 10/09/23 17:30 BP 102/72 10/09/23 17:30 Pulse Ox 96 10/09/23 17:30 O2 Del Method Room Air 10/09/23 17:30 BMI result Body Mass Index 38.6 Appearance: Alert.?Oriented to person, place and time. No acute distress.?Normal affect. Eyes: Pupils equal, round and reactive to light.? ENT: Pharynx normal.?? Neck: Normal inspection.? Neck supple.?? CVS: Heart sounds normal. Tachycardic? Pulses normal.?? Respiratory: No respiratory distress.? Lung sounds clear to auscultation bilaterally?? Abdomen: Soft and non-tender. Normoactive bowel sounds. Skin: Skin warm and dry.? Normal skin color.? Extremities: 3+ pitting right lower extremity edema, 1+ pitting left lower extremity edema. Right distal lower leg with circumferential erythema skin is shiny and taut. Positive calf tenderness on the right. 1+ DP/PT pulse on the right, 2+ DP/PT pulse on the left.? Neuro: Moves all extremities spontaneously. Sensation intact bilaterally. Ambulates with normal steady gait. Course Course Course Narrative: This is a Rapid Medical Examination (RME) performed by Mony Waterman PA-C in triage. Full HPI, ROS, assessment and treatment plan per primary provider in the Main ED. 78 yo female hx of asthma/ COPD, T2DM, HTN, GWEN on CPAP here from for eval of redness/swelling to RLE. no recent travel or long car rides. denies cp, sob, cough, hemoptysis. at , noted to be tachy. advised to come to ED for DVT r/o. admits to using her zopinex inhaler [place]ING LAYER at urgent care. not on AC. no VTE hx. + tachy to 120s. 2+ pitting edema to RLE. Circumferential erythema noted to right lower leg. Positive right calf tenderness. Plan: labs, bnp, ekg, venous duplex rle Reevaluation(s) Reevaluation #1: Venous duplex ultrasound without evidence of DVT. Concern at this time that erythema is most consistent with superimposed cellulitis on top of chronic pitting pedal edema. Sent prescription for cephalexin to pharmacy, no indication of septic arthritis at this time. Advised close outpatient follow-up with her primary care doctor, worrisome signs and symptoms that would warrant re-evaluation in the emergency department, in addition to referral to vascular as being established through her primary care doctor. Medical Decision Making Medical Decision Making [facility] Narrative: Patient is a 78-year-old female with past medical history of asthma/ COPD, T2DM, HTN, GWEN on CPAP, hypothyroidism, hypogammaglobulinemia who presents emergency department for evaluation of right lower extremity redness which is new in addition to her reportedly baseline swelling of the right lower extremity. She denies any personal history of DVT/PE/malignancy, recent precipitating injury prolonged immobilization or surgery. She is tachycardic but she admits to feeling anxious and very stressed out, also believes that this may be secondary to her inhaler usage. She has remained tachycardic despite having been at urgent care earlier today. Is reasonable for DVT rule out, venous duplex ultrasound will be obtained in addition to serum labs. Differential Diagnosis Differential Diagnoses: The differential diagnosis associated with the presentation includes (DVT, cellulitis, venous insufficiency) Admission/Observation Consideration of admission/observation: Escalation of care including admission/observation considered Lab Data [facility] Lab Attestation statement: I reviewed the patient's lab results. CBC without leukocytosis anemia or thrombocytopenia, CMP overall unremarkable, BNP within normal range. 10/09/23 17:17 10/09/23 17:17 Labs: Lab Results 10/09/23 Range/Units 17:17 WBC 10.5 (4.8-10.8) X10*3/uL RBC 4.13 L (4.20-5.50) X10*6/uL Hgb 12.8 (12.0-16.0) g/dl Hct 37.7 (37.0-47.0) % MCV 91.3 (80.0-98.0) fL MCH 31.0 (27.0-33.0) pg MCHC 34.0 (31.0-35.0) g/dl RDW 13.2 (11.0-16.0) % Plt Count 285 (160-400) X10*3/uL MPV 10.2 (9.4-12.3) fL Immature Gran % (Auto) 0.4 (0.0-0.4) % Neut % (Auto) 66.5 (45-73) % Lymph % (Auto) 18.3 L (20-40) % [place] % (Auto) 11.0 (2-11) % Eos % (Auto) 2.7 (0-4) % Baso % (Auto) 1.1 (0-2) % Lymph # (Auto) 1.9 (1.2-4.9) X10*3/uL [place] # (Auto) 1.2 (0.1-1.2) X10*3/uL Eos # (Auto) 0.3 (0.0-0.4) X10*3/uL Baso # (Auto) 0.1 (0.0-0.2) X10*3/uL Abs Immat Gran (auto) 0.04 H (0.00-0.03) X10*3/uL Absolute Neuts (auto) 7.0 (2.0-8.3) x10*3/uL Absolute Nucleated RBC 0.000 (0.0-0.012) X10*3/uL Nucleated RBC % (auto) 0.0 (0.0-0.2) /100WBC PT 11.7 (11.1-13.3) SEC INR 1.0 (0.9-1.1) Sodium 140 (135-145) mmol/L Potassium 4.0 (3.3-5.1) mmol/L Chloride 107 (96-108) mmol/L Carbon Dioxide 22 (22-29) mmol/L Anion Gap 15 (12-20) BUN 17 H (9-16) mg/dL Creatinine 0.91 (0.5-1.4) mg/dL Estim Creat Clear Calc 56.7 Estimated GFR > 60 Random Glucose 121 H (60-115) mg/dL Calcium 9.9 (8.4-10.2) mg/dL Total Bilirubin 0.3 (0.0-1.0) mg/dL AST 27 (5-31) U/L ALT 37 H (0-31) U/L Alkaline Phosphatase 54 (39-117) U/L B-Natriuretic Peptide 21 (<100) pg/mL Total Protein 6.7 (6.5-8.0) g/dL Albumin 4.3 (3.5-5.0) g/dL Independent Interpretation I performed an independent interpretation of an: EKG and Ultrasound (No DVT) Interpretation: Rate: 113 Rhythm: Sinus tachycardia? [place]:? Normal Normal P waves.? Normal LU.?? Normal QRS complex.?? ST T wave :??No ST elevation, no ST depression, no T-wave inversion qTC: 455 The study has been interpreted contemporaneously by me. Radiology Impression Discussion of test interpretation with radiology: I have reviewed the radiologist's reading. Radiologist Impression: US/US venous duplex LE RT IMPRESSION: No DVT demonstrated in the right lower extremity. External Record Review External record reviewed: Outpatient record Discharge Plan Discharge Clinical Impression: Cellulitis of leg, right Patient Disposition: Home, Self-Care Instructions: Cellulitis (ED) Prescriptions: New cephalexin 500 mg capsule 500 mg PO TID Qty: 21 0RF No Action fluticasone propionate 220 mcg/actuation HFA aerosol inhaler 2 puff PO BID 90 Days Qty: 3 3RF lidocaine 5 % adhesive patch,medicated 1 patch topical DAILY Qty: 90 1RF (DME) Ultra-Light Rollator Misc See Rx Instructions .Route Qty: 1 0RF Rx Instructions: As directed epinephrine 0.15 mg/0.3 mL auto-injector 0.15 mg IM Q30M PRN (Reason: anaphylaxis) 30 Days Qty: 2 0RF Rx Instructions: do not exceed 12 doses per 24 hrs (DME) blood pressure monitor Kit See Rx Instructions .Route Qty: 1 0RF Rx Instructions: As directed levothyroxine [Synthroid] 137 mcg tablet 137 mcg PO QAM Qty: 90 1RF verapamil [Verelan PM] 300 mg capsule, [address] 300 mg PO BEDTIME Qty: 90 0RF Rx Instructions: Brand name medically necessary (DME) lancets [FreeStyle Lancets] 28 gauge misc See Rx Instructions .ROUTE .MEDSUPPLY Qty: 100 4RF Rx Instructions: Freestyle Lite- check blood sugar daily acetaminophen 325 mg Tablet 325 mg PO Q4-6H PRN (Reason: Pain) multivitamin Tablet 1 tab PO DAILY (DME) FreeStyle Lite Strips Strip See Rx Instructions .ROUTE .MEDSUPPLY Qty: 100 3RF Rx Instructions: check blood sugar once daily nystatin [Nyamyc] 100,000 unit/gram powder 1 appl topical DAILY 30 Days Qty: 30 1RF levothyroxine [Synthroid] 125 mcg tablet 125 mcg PO DAILY levalbuterol HCl [Xopenex] 1.25 mg/3 mL solution for nebulization 1.25 mg inhalation Q4H PRN (Reason: Shortness Of Breath Or Wheezing) lansoprazole [Prevacid] 30 mg capsule,delayed release(DR/EC) 30 mg PO DAILY levalbuterol tartrate [Xopenex HFA] 45 mcg/actuation HFA aerosol inhaler 45 mcg inhalation DAILY PRN (Reason: Shortness Of Breath Or Wheezing) Adult 50 Plus Probiotic 4 billion cell capsule 4,000 mmu cells PO DAILY Rx Instructions: administer with a meal cranberry extract 500 mg tablet 500 mg PO BID Rx Instructions: administer with meals fluticasone furoate 27.5 mcg/actuation spray,suspension 2 spray intranasal DAILY 90 Days Qty: 3 3RF Rx Instructions: into each nostril (DME) nebulizers Misc See Rx Instructions .Route Rx Instructions: As directed lisinopril 40 mg tablet 40 mg PO DAILY hydralazine 25 mg tablet 25 mg PO TID Qvar RediHaler 80 mcg/actuation HFA aerosol breath activated inhalation azithromycin 250 mg tablet 250 mg PO 3XW 90 Days Qty: 39 3RF Rx Instructions: Take 1 tablet on Saturday/Saturday/Saturday prednisone 10 mg tablet See Rx Instructions PO DAILY 14 Days Qty: 21 1RF Rx Instructions: PO daily; Take 2 tabs daily x 7 days, then 1 tab daily x 7 days Referrals: Wandy Beasley MD [Primary Care Provider] - Print Language: [place]
--- NOTE | 2023-10-09 16:56 | ECG_ITS ---
Test Reason : tachycardia Blood Pressure : / mmHG Vent. Rate : 113 BPM Atrial Rate : 113 BPM P-R Int : 126 ms QRS Dur : 076 ms QT Int : 332 ms P-R-T Axes : 048 036 072 degrees QTc Int : 455 ms Sinus tachycardia Otherwise normal ECG When compared with ECG of 18-JUN-2018 14:41, No significant change was found Referred By: Val Waterman Electronically Signed By:Edy Borden
[2023-10-09 17:25] LABS: MANUAL DIFF FLAG NO
[2023-10-09 17:30] VITALS: BP 102/72; PULSE 116; RESP 16; TEMP 36.8; O2SAT 96
[2023-10-09 17:35] LABS: Prothrombin Time 11.7 SEC (11.1-13.3)
[2023-10-09 17:47] LABS: Alanine Aminotransferase 37 U/L (0-31); Albumin Level 4.3 g/dL (3.5-5.0); Alkaline Phosphatase 54 U/L (39-117); Anion Gap 15 (12-20); Aspartate Amino Transferase 27 U/L (5-31); Bilirubin Total 0.3 mg/dL (0.0-1.0); Blood Urea Nitrogen 17 mg/dL (9-16); Calcium 9.9 mg/dL (8.4-10.2); Carbon Dioxide 22 mmol/L (22-29); Chloride 107 mmol/L (96-108); Creatinine Clr Calc Pharmacy 56.7; Estimated Glomerular Filt Rate > 60; Glucose Random 121 mg/dL (60-115); Sodium 140 mmol/L (135-145); Total Protein 6.7 g/dL (6.5-8.0)
[2023-10-09 17:53] LABS: B Type Natriuretic Peptide 21 pg/mL (<100)
[2023-10-09 17:54] LABS: Basophils Absolute Auto 0.1 X10*3/uL (0.0-0.2); Basophils Percent Auto 1.1 % (0-2); Eosinophils Absolute Auto 0.3 X10*3/uL (0.0-0.4); Eosinophils Percent Auto 2.7 % (0-4); Hematocrit 37.7 % (37.0-47.0); Hemoglobin 12.8 g/dl (12.0-16.0); Imm Gran Abs Auto 0.04 X10*3/uL (0.00-0.03); Imm Gran Pct Auto 0.4 % (0.0-0.4); Lymphocytes Absolute Auto 1.9 X10*3/uL (1.2-4.9); Lymphocytes Percent Auto 18.3 % (20-40); Mean Corpuscular Volume 91.3 fL (80.0-98.0); Mean Platelet Volume 10.2 fL (9.4-12.3); Monocytes Absolute Auto 1.2 X10*3/uL (0.1-1.2); Neutrophils Percent Auto 66.5 % (45-73); Platelet Count 285 X10*3/uL (160-400); Red Blood Count 4.13 X10*6/uL (4.20-5.50); Red Cell Distribution Width 13.2 % (11.0-16.0); White Blood Count 10.5 X10*3/uL (4.8-10.8)
[2023-10-09 19:30] VITALS: BP 102/72; PULSE 116; RESP 16; TEMP 36.8; O2SAT 96
== END 2023-10-09 19:31 | disposition home or self-care (01) ==
PROVIDERS: Physician Assistant Medical; Emergency Provider Emergency Medicine; PCP Pediatrics
DX: L03.115 Cellulitis of right lower limb (principal); R00.0 Tachycardia, unspecified; R60.0 Localized edema; Z79.899 Other long term (current) drug therapy
CPT/HCPCS: 36415; 80053; 83880; 85025; 85610; 93005; 93971; 99284

== ENCOUNTER → 2023-10-09 16:56 | Outpatient (BNV) | payer MEDICARE, MEDICAID, SELFPAY | PROVIDERS: Emergency Provider Emergency Medicine; PCP Pediatrics; Visit Provider Internal Medicine Cardiovascular Disease | DX: R00.0 Tachycardia, unspecified (principal) | CPT/HCPCS: 93010 ==

== ENCOUNTER 2024-01-03 10:54 | Outpatient (AMB) | payer MEDICARE, MEDICAID, SELFPAY ==
--- NOTE | 2024-01-03 11:03 | A.OFFVIS_ITS ---
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: No Allergies amoxicillin [AMOXICILLIN] Allergy (Severe, Verified 01/03/24 11:06) NAUSEA & VOMITING atorvastatin [Lipitor] Allergy (Severe, Verified 01/03/24 11:06) severe back pain Biaxin Allergy (Severe, Verified 01/03/24 11:06) Anaphylaxis budesonide [Symbicort] Allergy (Severe, Verified 01/03/24 11:06) shortness of breath celecoxib [From CELEBREX] Allergy (Severe, Verified 01/03/24 11:06) HEART RACING clavulanic acid [From AUGMENTIN] Allergy (Severe, Verified 01/03/24 11:06) FEELS WIERD diazepam [Valium] Allergy (Severe, Verified 01/03/24 11:06) heart rate esomeprazole [Nexium] Allergy (Severe, Verified 01/03/24 11:06) back pain ezetimibe [Zetia] Allergy (Severe, Verified 01/03/24 11:06) anaphylaxis famotidine [Pepcid] Allergy (Severe, Verified 01/03/24 11:06) Back Pain irbesartan [Avapro] Allergy (Severe, Verified 01/03/24 11:06) Stomach Pain nitrofurantoin [Macrobid] Allergy (Severe, Verified 01/03/24 11:06) Stomach Pain shellfish derived Allergy (Severe, Verified 01/03/24 11:06) ANAPHYLAXIS Sulfa (Sulfonamide Antibiotics) Allergy (Severe, Verified 01/03/24 11:06) ANAPHYLAXIS, tongue swelling fluticasone [From Advair Diskus] Allergy (Intermediate, Verified 01/03/24 11:06) Redness of Skin formoterol [Symbicort] Allergy (Intermediate, Verified 01/03/24 11:06) shortness of breath latex [LATEX] Allergy (Intermediate, Verified 01/03/24 11:06) RASH levofloxacin [From LEVAQUIN] Allergy (Intermediate, Verified 01/03/24 11:06) DOES FEEL GOOD metformin Allergy (Intermediate, Verified 01/03/24 11:06) diarrhea pregabalin [From LYRICA] Allergy (Intermediate, Verified 01/03/24 11:06) FELT LIKE HEART ATTACK rabeprazole [From ACIPHEX] Allergy (Intermediate, Verified 01/03/24 11:06) FELT AWFUL rosuvastatin [Crestor] Allergy (Intermediate, Verified 01/03/24 11:06) severe back pain salmeterol [From Advair Diskus] Allergy (Intermediate, Verified 01/03/24 11:06) Redness of Skin telmisartan [From MICARDIS] Allergy (Intermediate, Verified 01/03/24 11:06) DIFF BREATHING topiramate [From TOPAMAX] Allergy (Intermediate, Verified 01/03/24 11:06) HYPERTENSION tramadol [TRAMADOL] Allergy (Intermediate, Verified 01/03/24 11:06) DOES NOT LIKE Iodinated Contrast Media [IV Dye, Iodine Containing] Allergy (Mild, Verified 01/03/24 11:06) HEADACHE,SOB,LIP SWELLING ciprofloxacin [From Cipro] Adverse Reaction (Mild, Verified 01/03/24 11:06) ANXIETY clarithromycin [From Biaxin] Adverse Reaction (Mild, Verified 01/03/24 11:06) NAUSEA AND VOMITING pantoprazole [From Protonix] Adverse Reaction (Mild, Verified 01/03/24 11:06) NAUSEA AND VOMITING HPI Comments Details: The patient is a 78 y/o woman with a history of obstructive sleep apnea on CPAP in addition to intrinsic asthma and also hypogammaglobulinemia. She did see her mumps developer. She was placed on Symbicort and she had an adverse reaction with shortness of breath. Therefore, she will continue on the Flovent. She does have Xopenex. She does have episodes of shortness of breath at night time and now she knows that she is going to use the Xopenex. She did have an ultrasound to abnormal blood work demonstrating that she does have a gallbladder polyp. She is working closely with her script developer for this. Having some nasal congestion and some upper airway secretions. Did do an x-ray in the x-ray was clear. She did finish a couple courses of antibiotics. She is immunocompromised and she knows that she does not clear infections quickly. She still has a cough and also has some chest tightness. But overall better than before. She continues uses CPAP. The CPAP therapy continues to be affecting beneficial. She does use it for more than 4 hours a night. 07/26/2022 the patient is here for a pulmonary follow-up visit. The patient has multiple complaints. She is struggling with the CPAP. She is tolerating the nasal pillows although she sometimes he gets any nasal congestion can tolerated. I did provide her with an F 30 I mask with a fullface mask. Size small. Seem to fit well. I did set up her machine for the fullface mask and cap the pressures the same 6-14. Her average pressure is 10 and her AHI was well below 1. I would was reassuring to her that the therapy has been working well. She needs to make sure she uses the machine 4 hours a night so it she can get the best effect from the machine. Hopefully with a full face much she can tolerate it better. She is doing well from a respiratory status. She is using inhalers every other day which seem to be helping decreasing hoarseness and tolerating them better. No significant wheezing or rhonchi that she can not complain about. She has not had any recent infections. She is using a mask the patient had a CT scan of the chest ordered by a different provider. It demonstrated some smile areas of atelectasis at the base. Otherwise no nodules of bronchiectasis appreciated. This is reassuring. However, the patient did have moderate degree of coronary artery calcifications. She was supposed to have a cardiac stress test. But she is concerned about adverse effects. I had recommended a Jolly nuclear stress test that she should be able to handle. For some reason she was not able to have a nuclear stress test. The patient needs to continue with wrist management as far as decreasing her cardiac risk and therefore using the CPAP therapy will be very important. Other risk modifications she can discuss with honey grader and blender and primary care. The patient does complaint of significant lower extremity edema. Appears to be symmetrical with her blood I leg being significantly swollen. Will be reasonable to do an ultrasound to rule out DVT. 10/15/2022 the patient is here for pulmonary follow-up visit. She has worsening respiratory symptoms. Has been having increasing wheezing for the last week. The patient has been using her nebulizer treatments several times a day. She is on maximal respiratory therapy. She has a hard time tolerating multiple inhalers and therefore the for have some limitations. The patient has been assessed for biologic therapy but the patient does not qualify. She is going to require additional prednisone at this time. She is reluctant to use is and she has had bad adverse effects in the past. Think she is also will be a good candidate for Daliresp. Specially because the fact she can not tolerate prednisone and frequent exacerbations. The patient also has significant immunodeficiency. She has been on prophylactic antibiotics. She has had increased chest congestion. Therefore, will switch her antibiotics over to doxycycline to make sure there were covering for for a lower respiratory infection. She still has lower extremity edema. She does have follow-up with honey grader and blender. Her lower extremity Dopplers were negative for DVT. The patient has been using her CPAP although she feels more congested after using it. We did download her machine. She is using more than 4 hours a night. His AHI is down to 1. I did adjust her pressures from 6-16 to 8 to 11 cm. 01/01/2023 the patient is here for a pulmonary follow-up visit. Since we last spoke she is been having a lot issues with dizziness vertigo migraines and falls. She is been very unsteady on her feet. She is following closely with Neurology. During the last visit back in October she was having issues with a underlying respiratory infection. She did take prednisone while on the predn isone her symptoms significantly improved. She does have nasal congestion now and nasal sinus pressure. She does have a pressure the years. The patient does have very retracted eardrums and significant erythema of the nasal turbinates. Likely a component of rhinosinusitis. This could be indirectly affecting her Dizziness symptoms. The patient has been using her respiratory therapy. She has not required her rescue inhaler. She continues uses CPAP every night. We did review the download. She does use it for more than 4 hours a night and her AHI is down to 1.2. Therefore she will continue with the current settings. She is doing really good on the CPAP at this time. She also finds it very effective in beneficial. 07/04/2023 the patient is here for a pulmonary follow-up visit. She has been having some issues with her insurance. She lost her [employer] and therefore she has been having difficulties with medication cost and other medical cost. She is currently appealing that decision. In the meantime she continues use her CPAP. The CPAP therapy continues to be affecting beneficial. She does use it for more than 4 hours a night. The patient also has been using her inhalers. Recently she did get a new prescription of QVAR. She is going to start that new. She did not tolerate the generic Flovent. She does have the immunodeficiency has been responding well to the azithromycin 3 times a week. She has been noticing increasing shortness of breath and chest tightness. She has not started the QVAR just yet although she does have wheezing on examination. I will give her a prednisone taper that she can start if her symptoms worsen and or she does not respond to the QVAR. 01/03/2024 the patient is here for a pulmonary follow-up visit. She cont inues to struggle with her inhalers. She can not find her that she can not tolerate. She does not tolerate powdered inhalers because she is allergic to them and also they irritate her throat. Therefore will stick to HFA. She has tried Symbicort in the past although he has been while. Will go ahead and trial Symbicort again she can start with 1 puff at a time to make sure she tolerates and then she can increase it as tolerated. In addition to that she continues on the azithromycin for immunodeficiency. Will go ahead and recheck her IgG level since it has been awhile. In addition to that will have her come back in 4 months with PFTs. She is tolerating the CPAP. The CPAP therapy has been affecting beneficial. She does use it for more than 4 hours. She does use nasal pillows. [facility] Will send a script at this time for additional supplies. [facility] Medical History (Updated 01/03/24 @ 10:29 by Alina Shoemaker PA-C) Osteopenia Tubular adenoma of colon Positional lightheadedness COPD (chronic obstructive pulmonary disease) Post herpetic neuralgia Hypothyroidism Heart murmur Vitamin D deficiency Hiatal hernia Bronchiectasis GWEN (obstructive sleep apnea) Fatty liver Diabetes type 2, controlled Obesity Hyperlipidemia HTN (hypertension) Asthma-COPD overlap syndrome Hypogammaglobulinemia Surgical History (Updated 01/03/24 @ 10:25 by Alina Shoemaker PA-C) History of total abdominal hysterectomy and bilateral salpingo-oophorectomy History of colonoscopy Retinal detachment Family History Father CVD (cardiovascular disease) Myocardial infarction Mother Breast cancer Diabetes mellitus Sister Cancer Kidney stone Son No problems noted. Social History Household Members: None Housing: Apartment Are you a primary caregiver assisted living to a significant other at home: No Do you presently have visiting nurse or other home services: No Alcohol intake: never Patient Tobacco Use Status: Former Tobacco user e-Cigarette/Vaping Use: Never Used Second Hand Smoke Exposure: No service: No Current occupational status: disabled Cognitive needs: Yes Hearing needs: No Vision needs: Yes Review of Systems Const Denies body aches, Denies chills, Denies fatigue and Denies fever(s) Eyes Denies change in vision ENT Reports vertigo, Reports dizziness, Denies otalgia, Reports nasal congestion, Reports nasal discharge, Reports nasal obstruction, Reports sinus pressure and Denies sore throat Card Denies chest pain, Denies edema, Reports leg edema (R>L), Denies lightheadedness, Denies dyspnea and Reports dyspnea on exertion Resp Denies chest congestion, Reports cough, Denies dyspnea, Reports dyspnea on exertion and Reports wheezing GI Denies abdominal pain, Denies constipation, Denies diarrhea, Denies nausea and Denies vomiting Denies hematuria, Denies dysuria and Denies flank pain Musc Details: Bilateral lower extremity redness and swelling R>L Reports back pain, Denies myalgias, Denies arthralgias, Denies joint swelling, Denies numbness and Denies tingling Skin/Breast Denies lesions and Denies rash Neuro Denies confusion, Reports vertigo, Reports dizziness, Denies numbness and Denies tingling Psych Denies confusion Endo Denies fatigue Aller/Immun Reports wheezing Physical Exam Vital Signs: Last Vital Signs Pulse 88 01/03/24 11:05 BP 118/70 01/03/24 11:05 Pulse Ox 96 01/03/24 11:05 Oxygen Delivery Method Room Air 01/03/24 11:05 BMI result Body Mass Index 36.7 Const General: No confusion Orientation/consciousness: No confusion HEENT Ears: TM abnormal retracted General nose exam: Abnormal mucous membranes and turbinates present erythematous Neck Neck: Yes normal visual inspection, Yes full ROM and Yes no lymphadenopathy Chest Chest palpation & inspection: normal inspection of the chest Resp Effort & Inspection: normal respiratory effort Auscultation: no wheezes and diminished lung sounds Cardio Rate: regular rate Rhythm: regular rhythm Heart sounds: S1 normal heart sound present and S2 normal heart sound present GI Palpation (GI): Soft to palpation and nontender Auscultation: normal bowel sounds Skin General skin exam: rashes and/or lesions noted Neuro General: No confusion Extrem General: Yes edema (R>>L) Assessment & Plan Assessment & Plan (1) COPD (chronic obstructive pulmonary disease): Code(s): J44.9 - Chronic obstructive pulmonary disease, unspecified Category: Medical Qualifiers: COPD type: COPD with acute exacerbation Qualified Code(s): J44.1 - Chronic obstructive pulmonary disease with (acute) exacerbation (2) GWEN (obstructive sleep apnea): Comment: (on CPAP with good effect) Code(s): G47.33 - Obstructive sleep apnea (adult) (pediatric) Category: Medical (3) Asthma-COPD overlap syndrome: Code(s): J44.9 - Chronic obstructive pulmonary disease, unspecified Category: Medical (4) Hypogammaglobulinemia: Code(s): D80.1 - Nonfamilial hypogammaglobulinemia Category: Medical (5) Lower extremity edema: Code(s): R60.0 - Localized edema Category: Medical Plan start Symbicort Xopenex as needed stopped spiriva due to coughing continue Azithromycin MWF Continue CPAP therapy with 2L/min oxygen, provided F30i small mask. Needs to use it at least 4 hours while sleeping. Adjusted APAP 8-11, ramp 6 continue oxygen therapy while sleeping. Therapy effective and beneficial bloodwork F/U 4-6 months Orders: Orders Immunoglobulins,IgG IgA IgM 01/03/24 J44.9 - Chronic obstructive pulmonary disease, unspecified Erythrocyte Sedimentation Rate 01/03/24 J44.9 - Chronic obstructive pulmonary disease, unspecified Complete Blood Count Auto Diff 01/03/24 J44.9 - Chronic obstructive pulmonary disease, unspecified Basic Metabolic Panel 01/03/24 J44.9 - Chronic obstructive pulmonary disease, unspecified Medications: New budesonide-formoterol 160-4.5 mcg/actuation (Symbicort) 2 puffs inhalation BID 10.2 grams 11RF 30 days J44.89 - Other specified chronic obstructive pulmonary disease Coding Level of Care Code Est Pt Level 4 (88705) Complex EM visit Add On G2211 Diagnoses Chronic obstructive pulmonary disease with acute exacerbation J44.1 COPD type: COPD with acute exacerbation GWEN (obstructive sleep apnea) G47.33 Asthma-COPD overlap syndrome J44.9 Hypogammaglobulinemia D80.1 Lower extremity edema R60.0 Time Spent (min) 17
[2024-01-03 11:05] VITALS: BP 118/70; PULSE 88; O2SAT 96; BMI 36.7
== END 2024-01-03 11:34 | disposition home or self-care (01) ==
PROVIDERS: PCP Pediatrics; Visit Provider Hospitalist
DX: J44.1 Chronic obstructive pulmonary disease with (acute) exacerbation (principal); G47.33 Obstructive sleep apnea (adult) (pediatric); J44.9 Chronic obstructive pulmonary disease, unspecified; D80.1 Nonfamilial hypogammaglobulinemia; R60.0 Localized edema
CPT/HCPCS: 99214; G2211

== ENCOUNTER → 2024-01-03 10:54 | Outpatient (BNVA) | payer MEDICARE, MEDICAID, SELFPAY | PROVIDERS: PCP Pediatrics; Visit Provider Hospitalist | DX: J44.1 Chronic obstructive pulmonary disease with (acute) exacerbation (principal); G47.33 Obstructive sleep apnea (adult) (pediatric); D80.1 Nonfamilial hypogammaglobulinemia; R60.0 Localized edema | CPT/HCPCS: 99212 ==

== ENCOUNTER 2024-03-24 10:01 | Outpatient (AMB) | payer MEDICARE, MEDICAID, SELFPAY ==
[2024-03-24 10:14] VITALS: BP 120/54; PULSE 72; O2SAT 96; BMI 35.7
--- NOTE | 2024-03-24 10:14 | MHC.OFFVIS ---
Vital Signs 03/24/24 10:14 Height 5 ft 2 in Weight 195 lb 1.745 oz BMI 35.7 BP 120/54 L Blood Pressure Location Rt brachial Position Sitting Pulse 72 Pulse Source Pulse Oximeter Pulse Oximetry (%) 96 Oxygen Delivery Method Room Air Intake Visit Reasons: copd Allergies amoxicillin [AMOXICILLIN] Allergy (Severe, Verified 03/24/24 10:22) NAUSEA & VOMITING atorvastatin [Lipitor] Allergy (Severe, Verified 03/24/24 10:22) severe back pain Biaxin Allergy (Severe, Verified 03/24/24 10:22) Anaphylaxis budesonide [Symbicort] Allergy (Severe, Verified 03/24/24 10:22) shortness of breath celecoxib [From CELEBREX] Allergy (Severe, Verified 03/24/24 10:22) HEART RACING clavulanic acid [From AUGMENTIN] Allergy (Severe, Verified 03/24/24 10:22) FEELS WIERD diazepam [Valium] Allergy (Severe, Verified 03/24/24 10:22) heart rate esomeprazole [Nexium] Allergy (Severe, Verified 03/24/24 10:22) back pain ezetimibe [Zetia] Allergy (Severe, Verified 03/24/24 10:22) anaphylaxis famotidine [Pepcid] Allergy (Severe, Verified 03/24/24 10:22) Back Pain irbesartan [Avapro] Allergy (Severe, Verified 03/24/24 10:22) Stomach Pain nitrofurantoin [Macrobid] Allergy (Severe, Verified 03/24/24 10:22) Stomach Pain shellfish derived Allergy (Severe, Verified 03/24/24 10:22) ANAPHYLAXIS Sulfa (Sulfonamide Antibiotics) Allergy (Severe, Verified 03/24/24 10:22) ANAPHYLAXIS, tongue swelling fluticasone [From Advair Diskus] Allergy (Intermediate, Verified 03/24/24 10:22) Redness of Skin formoterol [Symbicort] Allergy (Intermediate, Verified 03/24/24 10:22) shortness of breath latex [LATEX] Allergy (Intermediate, Verified 03/24/24 10:22) RASH levofloxacin [From LEVAQUIN] Allergy (Intermediate, Verified 03/24/24 10:22) DOES FEEL GOOD metformin Allergy (Intermediate, Verified 03/24/24 10:22) diarrhea pregabalin [From LYRICA] Allergy (Intermediate, Verified 03/24/24 10:22) FELT LIKE HEART ATTACK rabeprazole [From ACIPHEX] Allergy (Intermediate, Verified 03/24/24 10:22) FELT AWFUL rosuvastatin [Crestor] Allergy (Intermediate, Verified 03/24/24 10:22) severe back pain salmeterol [From Advair Diskus] Allergy (Intermediate, Verified 03/24/24 10:22) Redness of Skin telmisartan [From MICARDIS] Allergy (Intermediate, Verified 03/24/24 10:22) DIFF BREATHING topiramate [From TOPAMAX] Allergy (Intermediate, Verified 03/24/24 10:22) HYPERTENSION tramadol [TRAMADOL] Allergy (Intermediate, Verified 03/24/24 10:22) DOES NOT LIKE Iodinated Contrast Media [IV Dye, Iodine Containing] Allergy (Mild, Verified 03/24/24 10:22) HEADACHE,SOB,LIP SWELLING ciprofloxacin [From Cipro] Adverse Reaction (Mild, Verified 03/24/24 10:22) ANXIETY clarithromycin [From Biaxin] Adverse Reaction (Mild, Verified 03/24/24 10:22) NAUSEA AND VOMITING pantoprazole [From Protonix] Adverse Reaction (Mild, Verified 03/24/24 10:22) NAUSEA AND VOMITING HPI Comments Details: The patient is a 79 y/o woman with a history of obstructive sleep apnea on CPAP in addition to intrinsic asthma and also hypogammaglobulinemia. She did see her manufacturing storeperson. She was placed on Symbicort and she had an adverse reaction with shortness of breath. Therefore, she will continue on the Flovent. She does have Xopenex. She does have episodes of shortness of breath at night time and now she knows that she is going to use the Xopenex. She did have an ultrasound to abnormal blood work demonstrating that she does have a gallbladder polyp. She is working closely with her benefit authorizer for this. Having some nasal congestion and some upper airway secretions. Did do an x-ray in the x-ray was clear. She did finish a couple courses of antibiotics. She is immunocompromised and she knows that she does not clear infections quickly. She still has a cough and also has some chest tightness. But overall better than before. She continues uses CPAP. The CPAP therapy continues to be affecting beneficial. She does use it for more than 4 hours a night. 07/26/2022 the patient is here for a pulmonary follow-up visit. The patient has multiple complaints. She is struggling with the CPAP. She is tolerating the nasal pillows although she sometimes he gets any nasal congestion can tolerated. I did provide her with an F 30 I mask with a fullface mask. Size small. Seem to fit well. I did set up her machine for the fullface mask and cap the pressures the same 6-14. Her average pressure is 10 and her AHI was well below 1. I would was reassuring to her that the therapy has been working well. She needs to make sure she uses the machine 4 hours a night so it she can get the best effect from the machine. Hopefully with a full face much she can tolerate it better. She is doing well from a respiratory status. She is using inhalers every other day which seem to be helping decreasing hoarseness and tolerating them better. No significant wheezing or rhonchi that she can not complain about. She has not had any recent infections. She is using a mask the patient had a CT scan of the chest ordered by a different provider. It demonstrated some smile areas of atelectasis at the base. Otherwise no nodules of bronchiectasis appreciated. This is reassuring. However, the patient did have moderate degree of coronary artery calcifications. She was supposed to have a cardiac stress test. But she is concerned about adverse effects. I had recommended a Jolly nuclear stress test that she should be able to handle. For some reason she was not able to have a nuclear stress test. The patient needs to continue with wrist management as far as decreasing her cardiac risk and therefore using the CPAP therapy will be very important. Other risk modifications she can discuss with system development engineer and primary care. The patient does complaint of significant lower extremity edema. Appears to be symmetrical with her blood I leg being significantly swollen. Will be reasonable to do an ultrasound to rule out DVT. 10/15/2022 the patient is here for pulmonary follow-up visit. She has worsening respiratory symptoms. Has been having increasing wheezing for the last week. The patient has been using her nebulizer treatments several times a day. She is on maximal respiratory therapy. She has a hard time tolerating multiple inhalers and therefore the for have some limitations. The patient has been assessed for biologic therapy but the patient does not qualify. She is going to require additional prednisone at this time. She is reluctant to use is and she has had bad adverse effects in the past. Think she is also will be a good candidate for Daliresp. Specially because the fact she can not tolerate prednisone and frequent exacerbations. The patient also has significant immunodeficiency. She has been on prophylactic antibiotics. She has had increased chest congestion. Therefore, will switch her antibiotics over to doxycycline to make sure there were covering for for a lower respiratory infection. She still has lower extremity edema. She does have follow-up with system development engineer. Her lower extremity Dopplers were negative for DVT. The patient has been using her CPAP although she feels more congested after using it. We did download her machine. She is using more than 4 hours a night. His AHI is down to 1. I did adjust her pressures from 6-16 to 8 to 11 cm. 01/01/2023 the patient is here for a pulmonary follow-up visit. Since we last spoke she is been having a lot issues with dizziness vertigo migraines and falls. She is been very unsteady on her feet. She is following closely with Neurology. During the last visit back in October she was having issues with a underlying respiratory infection. She did take prednisone while on the prednisone her symptoms significantly improved. She does have nasal congestion now and nasal sinus pressure. She does have a pressure the years. The patient does have very retracted eardrums and significant erythema of the nasal turbinates. Likely a component of rhinosinusitis. This could be indirectly affecting her Dizziness symptoms. The patient has been using her respiratory therapy. She has not required her rescue inhaler. She continues uses CPAP every night. We did review the download. She does use it for more than 4 hours a night and her AHI is down to 1.2. Therefore she will continue with the current settings. She is doing really good on the CPAP at this time. She also finds it very effective in beneficial. 07/04/2023 the patient is here for a pulmonary follow-up visit. She has been having some issues with her insurance. She lost her [employer] and therefore she has been having difficulties with medication cost and other medical cost. She is currently appealing that decision. In the meantime she continues use her CPAP. The CPAP therapy continues to be affecting beneficial. She does use it for more than 4 hours a night. The patient also has been using her inhalers. Recently she did get a new prescription of QVAR. She is going to start that new. She did not tolerate the generic Flovent. She does have the immunodeficiency has been responding well to the azithromycin 3 times a week. She has been noticing increasing shortness of breath and chest tightness. She has not started the QVAR just yet although she does have wheezing on examination. I will give her a prednisone taper that she can start if her symptoms worsen and or she does not respond to the QVAR. 01/03/2024 the patient is here for a pulmonary follow-up visit. She continues to struggle with her inhalers. She can not find her that she can not tolerate. She does not tolerate powdered inhalers because she is allergic to them and also they irritate her throat. Therefore will stick to HFA. She has tried Symbicort in the past although he has been while. Will go ahead and trial Symbicort again she can start with 1 puff at a time to make sure she tolerates and then she can increase it as tolerated. In addition to that she continues on the azithromycin for immunodeficiency. Will go ahead and recheck her IgG level since it has been awhile. In addition to that will have her come back in 4 months with PFTs. She is tolerating the CPAP. The CPAP therapy has been affecting beneficial. She does use it for more than 4 hours. She does use nasal pillows. She gets supplies through [employer]. Will send a script at this time for additional supplies. 03/24/2024 the patient is here for pulmonary follow-up visit. The patient is doing well. She had COVID back in the fall. She did take Paxlovid. For now she has been stable. She has been tolerating the azithromycin 3 times a week as prophylaxis for her immunodeficiency. Her IgG levels continue to be significantly low but she is not interested in pursuing any augmentation therapy with IgG. The patient continues use her CPAP. CPAP therapy has been affecting beneficial. She does try to use more than 4 hours a night. She is currently going through a move so is been a little bit hard the last few weeks but she does find it very effective and therefore she continues use it. I will submit a prescription for supplies from her [employer]. [facility] Medical History (Updated 01/03/24 @ 10:29 by Alina Shoemaker PA-C) Osteopenia Tubular adenoma of colon Positional lightheadedness COPD (chronic obstructive pulmonary disease) Post herpetic neuralgia Hypothyroidism Heart murmur Vitamin D deficiency Hiatal hernia Bronchiectasis GWEN (obstructive sleep apnea) Fatty liver Diabetes type 2, controlled Obesity Hyperlipidemia HTN (hypertension) Asthma-COPD overlap syndrome Hypogammaglobulinemia Surgical History (Updated 01/03/24 @ 10:25 by Alina Shoemaker PA-C) History of total abdominal hysterectomy and bilateral salpingo-oophorectomy History of colonoscopy Retinal detachment Family History Father CVD (cardiovascular disease) Myocardial infarction Mother Breast cancer Diabetes mellitus Sister Cancer Kidney stone Son No problems noted. Social History Household Members: None Housing: Apartment Are you a primary health care technician to a significant other at home: No Do you presently have visiting nurse or other home services: No Alcohol intake: never Patient Tobacco Use Status: Former Tobacco user e-Cigarette/Vaping Use: Never Used Second Hand Smoke Exposure: No service: No Current occupational status: disabled Cognitive needs: Yes Hearing needs: No Vision needs: Yes Review of Systems Const Denies body aches, Denies chills, Denies fatigue and Denies fever(s) Eyes Denies change in vision ENT Reports vertigo, Reports dizziness, Denies otalgia, Reports nasal congestion, Reports nasal discharge, Reports nasal obstruction, Reports sinus pressure and Denies sore throat Card Denies chest pain, Denies edema, Reports leg edema (R>L), Denies lightheadedness, Denies dyspnea and Reports dyspnea on exertion Resp Denies chest congestion, Reports cough, Denies dyspnea, Reports dyspnea on exertion and Reports wheezing GI Denies abdominal pain, Denies constipation, Denies diarrhea, Denies nausea and Denies vomiting Denies hematuria, Denies dysuria and Denies flank pain Musc Details: Bilateral lower extremity redness and swelling R>L Reports back pain, Denies myalgias, Denies arthralgias, Denies joint swelling, Denies numbness and Denies tingling Skin/Breast Denies lesions and Denies rash Neuro Denies confusion, Reports vertigo, Reports dizziness, Denies numbness and Denies tingling Psych Denies confusion Endo Denies fatigue Aller/Immun Reports wheezing Physical Exam Vital Signs: Last Vital Signs Pulse 72 03/24/24 10:14 BP 120/54 L 03/24/24 10:14 Pulse Ox 96 03/24/24 10:14 Oxygen Delivery Method Room Air 03/24/24 10:14 BMI result Body Mass Index 35.7 Const General: No confusion Orientation/consciousness: No confusion HEENT Ears: TM abnormal retracted General nose exam: Abnormal mucous membranes and turbinates present erythematous Neck Neck: Yes normal visual inspection, Yes full ROM and Yes no lymphadenopathy Chest Chest palpation & inspection: normal inspection of the chest Resp Effort & Inspection: normal respiratory effort Auscultation: no wheezes and diminished lung sounds Cardio Rate: regular rate Rhythm: regular rhythm Heart sounds: S1 normal heart sound present and S2 normal heart sound present GI Palpation (GI): Soft to palpation and nontender Auscultation: normal bowel sounds Skin General skin exam: rashes and/or lesions noted Neuro General: No confusion Extrem General: Yes edema (R>>L) Assessment & Plan Assessment & Plan (1) COPD (chronic obstructive pulmonary disease): Code(s): J44.9 - Chronic obstructive pulmonary disease, unspecified Category: Medical Qualifiers: COPD type: COPD with acute exacerbation Qualified Code(s): J44.1 - Chronic obstructive pulmonary disease with (acute) exacerbation (2) GWEN (obstructive sleep apnea): Comment: (on CPAP with good effect) Code(s): G47.33 - Obstructive sleep apnea (adult) (pediatric) Category: Medical (3) Asthma-COPD overlap syndrome: Code(s): J44.9 - Chronic obstructive pulmonary disease, unspecified Category: Medical (4) Hypogammaglobulinemia: Code(s): D80.1 - Nonfamilial hypogammaglobulinemia Category: Medical (5) Lower extremity edema: Code(s): R60.0 - Localized edema Category: Medical Plan continue Symbicort Xopenex as needed stopped spiriva due to coughing continue Azithromycin MWF Continue CPAP therapy with 2L/min oxygen, provided F30i small mask. Needs to use it at least 4 hours while sleeping. Adjusted APAP 8-11, ramp 6 continue oxygen therapy while sleeping. Therapy effective and beneficial F/U 4-6 months Coding Level of Care Code Est Pt Level 4 (92343) Complex EM visit Add On G2211 Diagnoses Chronic obstructive pulmonary disease with acute exacerbation J44.1 COPD type: COPD with acute exacerbation GWEN (obstructive sleep apnea) G47.33 Asthma-COPD overlap syndrome J44.9 Hypogammaglobulinemia D80.1 Lower extremity edema R60.0 Time Spent (min) 17
--- OUTSIDE RECORDS SUMMARY | 2024-03-24 11:24 | XMS_ITS ---
Author Organization [facility] Address [address] [place] [address] Care Team Providers Care Assistant Banquet Manager Name Role Phone Wandy Beasley Primary Care Provider Mo Summers Jr, Yeison Henderson REASON FOR VISIT discuss colonoscopy Encounters Encounter Location Date Provider Diagnosis [facility] [address] [facility] [address] [place] [phone] 01/09/2024 Yeison Summers Jr PLAN OF TREATMENT Next Appt Details Provider Name:Yeison garcia Jr, 05/28/2024 02:15:00 PM, [address] [facility], [address], [place], [address],
--- OUTSIDE RECORDS SUMMARY | 2024-03-24 11:24 | XMS_ITS ---
Author Organization [facility] Address [address] [place] [address] Care Team Providers Care Grand Scribe Name Role Phone Wandy Beasley Primary Care Provider Mo Summers Jr, Yeison Henderson REASON FOR VISIT appt Encounters Encounter Location Date Provider Diagnosis [facility] [address] [facility] [address] [place] [address] 12/25/2023 Yeison Summers Jr PLAN OF TREATMENT Next Appt Details Provider Name:Yeison garcia Jr, 05/28/2024 02:15:00 PM, [address] [facility], [address], [place], [address],
--- OUTSIDE RECORDS SUMMARY | 2024-03-24 11:24 | XMS_ITS ---
Author Organization [facility] Address [address] [place] [address] Care Team Providers Care Candy Depositing Machine Operator Name Role Phone Wandy Beasley Primary Care Provider Mo Summers Jr, Yeison Henderson REASON FOR VISIT gerd Encounters Encounter Location Date Provider Diagnosis [facility] [address] [facility] [address] [place] [address] 12/16/2023 Yeison Summers Jr PLAN OF TREATMENT Next Appt Details Provider Name:Yeison garcia Jr, 05/28/2024 02:15:00 PM, [address] [facility], [address], [place], [address],
--- OUTSIDE RECORDS SUMMARY | 2024-03-24 11:25 | XMS_ITS | Patient Health Record ---
Author Organization [facility] Address [address] [place] [address] Care Team Providers Care Acid Cleaner Name Role Phone Wandy Beasley Primary Care Provider Yeison Jeffery Jr Unavailable REASON FOR REFERRAL No Information MEDICATIONS Medication SIG (Take, Route, Frequency, Duration) Notes Start Date End Date Status Xopenex HFA 45mcg 1 puff as needed Inh alation every 4 hrs/prn Active Synthroid 125mcg 1 tablet on an empty stomach in the morningalternating every other day w/137mcg Orally Once a day Active Verelan PM Active Flovent HFA 220 MCG/ACT 2 puffs Inhalation Twice a day Active Multi Vitamin/Minerals - 1 Orally QD Active Spiriva Respimat 2.5 MCG/ACT Inhalation for 90 Active Verelan 300mg 1 capsule Orally Once a day Active Torsemide 10 MG 1 tablet Orally Once a day for 30 day(s) Not-Taking Lisinopril 10 MG Orally bid Ac tive Probiotic 250 MG 1 capsule Orally once a day Active ALPRAZolam 1 MG 1 tablet Orally Twice a day 2018 Active Cranberry 400 MG 1 capsule with meals Orally every other day Active Doxycycline Hyclate Active Tylenol Extra Strength 500 MG 1 tablet as needed Orally every 6 hrs when needed Active Prevacid 30 MG TAKE 1 CAPSULE BY [facility] ONCE DAILY BEFORE A MEAL for 100 Active Meclizine HCl Not-Ta liudmila IMMUNIZATIONS Vaccine Route Administration Date Status Comme nts Influenza Unknown 12/16/2019 Administered Influenza Unknown 07/17/2018 Refused Influenza Unknown 01/07/2019 Refused Influenza Unknown 08/13/2019 Refused Influenza Unknown 02/12/2022 Refused SOCIAL HISTORY Sex Assigned At : Social History Observation Description Sex Assigned At Unknown Alcohol Screen Question Answer Notes Did you have a drink containing alcohol in the p ast year? No Points 0 Interpretation Negative PROBLEMS Problem Type ICD Code Onset Dates Problem Status W/U Status Risk SNOMED Code Notes Problem Colon cancer screening (Z12.11) Active confirmed 257966990 Problem Gastro-esophageal reflux disease without esophagitis (K21.9) Active confirmed 856786373 Problem Gastroesophageal reflux disease without esophagitis (K21.9) Active confirmed 861792647 Problem Fatty liver (K76.0) Active confirmed 19 3287967 Problem Screening for colon cancer (Z12.11) Active confirmed 534063196 Problem Irritable bowel syndrome, unspecified type (K58.9) Active confirmed 90308936 Problem Elevated liver function tests (R94.5) Active confirmed 396203223 Problem Adenomatous polyp of colon, unspecified part of colon (D12.6) Active confirmed 435417649 Problem Gallbladder polyp (K82.4) Active confirmed 352743851 Encounters Encounter Location Date Provider Diagnosis [facility] [address] [place] [phone] 04/04/2023 Yeison Summers Jr [facility] [address] [place] [phone] 12/16/2023 Yeison Summers Jr [facility] [address] [place] [phone] 01/09/2024 Yeison Summers Jr [facility] [address] [place] [phone] 04/04/2023 Yeison Summers Jr [facility] [address] [place] [phone] 12/25/2023 Yeison Summers Jr PLAN OF TREATMENT Pending Test Test Name Order Date US ABD 02/10/2020 Future Test Test Name Order Date COLONOSCOPY 06/23/2012 COLONOSCOPY 09/04/2017 COLONOSCOPY 01/07/2019 Next Appt Details Provider Name:Yeison garcia Jr, 05/28/2024 02:15:00 PM, [address] [facility], [address], [place], [address], Insurance Providers Payer Name Payer Address Payer Phone Subscriber Number Group Number Insured Name Patient Relationship to Insured Coverage Start Date Coverage End Date MEDICARE OF [place] [address] [place] [id number] MELANY JAMES Self - patient is the insured MEDICAID OF [facility] [address] [place] [phone] [id number] MELANY JAMES Self - patient is the insured MEDICAL (GENERAL) HISTORY Medical History History ICD Code Colonoscopy 04/08/19, tubular adenoma x1, five-year followup GERD IBS fibromyalgia diabetes asthma Thyroid disease hypertension glaucoma retinal detachment tachycardia sleep apnea SOB fractured left knee and knee vertigo Coronary artery disease with history of [place] Osteoporosis Surgical History Surgery Date(Month/Year) hysterectomy appendectomy ovarian cyst removed wisdom teeth extraction
--- OUTSIDE RECORDS SUMMARY | 2024-03-24 11:25 | XMS_ITS | Patient Health Record ---
Author Organization [facility] Address [address] [place] [address] Support Name Relationship Address Phone Gonsalo Limon Emergency Contact [address] [place] [address] [place], [place] [phone] Dixie Cevallos Guarantor Unknown [phone] Reason For Referral No Information Medications Medication SIG (Take, Route, Fr equency, Duration) Notes Start Date End Date Status Neurontin 100 MG 360 Oral 12 BEDTIME increasing by 1 q 5 nights until on 1200mg for 09/29/2010 Active Gabapentin 100 MG 360 Oral at bedtime increasing by 1 q 5 nights until on 1200mg for 09/29/2010 Active Plan Of Treatment No Information Insurance Providers Payer Name Payer Address Payer Phone Subscriber Number Group Number Insured Name Patient Relationship to Insured Coverage Start Date Coverage End Date MEDICARE B [address] [facility] [place] [id number] Dixie Cevallos Self - patient is the insured [place] Medicaid [address] [place] [address] [id number] Dixie Cevallos Self - patient is the insured Medical (General) History Surgical History Surgery Date(Month/Year) Prior surgeries include bila teral detached retinal surgery Prior surgeries include bilateral detached retinal surgery 2010-09-29
== END 2024-03-24 10:53 | disposition home or self-care (01) ==
PROVIDERS: PCP Pediatrics; Visit Provider Hospitalist
DX: J44.1 Chronic obstructive pulmonary disease with (acute) exacerbation (principal); G47.33 Obstructive sleep apnea (adult) (pediatric); J44.9 Chronic obstructive pulmonary disease, unspecified; D80.1 Nonfamilial hypogammaglobulinemia; R60.0 Localized edema
CPT/HCPCS: 99214; G2211

== ENCOUNTER → 2024-03-24 10:01 | Outpatient (BNVA) | payer MEDICARE, MEDICAID, SELFPAY | PROVIDERS: PCP Pediatrics; Visit Provider Hospitalist | DX: J44.1 Chronic obstructive pulmonary disease with (acute) exacerbation (principal); G47.33 Obstructive sleep apnea (adult) (pediatric); D80.1 Nonfamilial hypogammaglobulinemia; R60.0 Localized edema; Z99.89 Dependence on other enabling machines and devices | CPT/HCPCS: 99212 ==

== ENCOUNTER 2024-09-30 10:37 | Outpatient (AMB) | payer MEDICARE, MEDICAID, SELFPAY ==
--- OUTSIDE RECORDS SUMMARY | 2024-01-09 09:35 | XMS_ITS ---
Author Organization [facility] Address [address] [place] [id number] Care Team Providers Care Graduate Studies Dean Name Role Phone Wandy Beasley Primary Care Provider Yeison Jeffery Jr [phone] REASON FOR VISIT discuss colonoscopy Encounters Encounter Location Date Provider Diagnosis [facility] [address] [place] [id number] 01/09/2024 Yeison Summers Jr Plan Of Treatment No Information Progress Notes * MELANY JAMESDOB: [birth year] (79 yo F)Acc No.[id number]:01/09/2024 Progress Notes Patient: MELANY DYE Provider: Kayode Summers MD :[id number] A ge:78 Y S ex:Female Date:01/09/2024 Address:[address] [place], [place] [id number] Pcp:Wandy Beasley Subjective: * Chief Complaints: * 1 . Discuss colonoscopy. * Medical History: Objective: * Vitals: Assessment: Plan: * Treatment: * * The named appointment provid er may or may not be the originator of this progress note, and it is not deemed complete until electronically signed by the appointment provider. Sign off status: Pending * Provider: Kayode Summers MD Date: 1 Generated for Printi ng/Faxing/eTransmitting on: 0 09/30/2024 11:39 AM EDT
[2024-09-30 10:47] VITALS: BP 120/58; PULSE 68; O2SAT 97; BMI 36.5
--- NOTE | 2024-09-30 10:47 | A.OFFVIS_ITS ---
Vital Signs 09/30/24 10:47 Height 5 ft 2 in Weight 199 lb 8.293 oz BMI 36.5 BP 120/58 L Blood Pressure Location Rt brachial Position Sitting Pulse 68 Pulse Source Pulse Oximeter Pulse Oximetry (%) 97 Oxygen Delivery Method Room Air Intake Visit Reasons: copd Allergies amoxicillin (AMOXICILLIN) Allergy (Severe, Verified 09/30/24 10:53) NAUSEA & VOMITING atorvastatin (Lipitor) Allergy (Severe, Verified 09/30/24 10:53) severe back pain Biaxin Allergy (Severe, Verified 09/30/24 10:53) Anaphylaxis budesonide (Symbicort) Allergy (Severe, Verified 09/30/24 10:53) shortness of breath celecoxib (From CELEBREX) Allergy (Severe, Verified 09/30/24 10:53) HEART RACING clavulanic acid (From AUGMENTIN) Allergy (Severe, Verified 09/30/24 10:53) FEELS WIERD diazepam (Valium) Allergy (Severe, Verified 09/30/24 10:53) heart rate esomeprazole (Nexium) Allergy (Severe, Verified 09/30/24 10:53) back pain ezetimibe (Zetia) Allergy (Severe, Verified 09/30/24 10:53) anaphylaxis famotidine (Pepcid) Allergy (Severe, Verified 09/30/24 10:53) Back Pain irbesartan (Avapro) Allergy (Severe, Verified 09/30/24 10:53) Stomach Pain nitrofurantoin (Macrobid) Allergy (Severe, Verified 09/30/24 10:53) Stomach Pain shellfish derived Allergy (Severe, Verified 09/30/24 10:53) ANAPHYLAXIS Sulfa (Sulfonamide Antibiotics) Allergy (Severe, Verified 09/30/24 10:53) ANAPHYLAXIS, tongue swelling fluticasone (From Advair Diskus) Allergy (Intermediate, Verified 09/30/24 10:53) Redness of Skin formoterol (Symbicort) Allergy (Intermediate, Verified 09/30/24 10:53) shortness of breath latex (LATEX) Allergy (Intermediate, Verified 09/30/24 10:53) RASH levofloxacin (From LEVAQUIN) Allergy (Intermediate, Verified 09/30/24 10:53) DOES FEEL GOOD metformin Allergy (Intermediate, Verified 09/30/24 10:53) diarrhea pregabalin (From LYRICA) Allergy (Intermediate, Verified 09/30/24 10:53) FELT LIKE HEART ATTACK rabeprazole (From ACIPHEX) Allergy (Intermediate, Verified 09/30/24 10:53) FELT AWFUL rosuvastatin (Crestor) Allergy (Intermediate, Verified 09/30/24 10:53) severe back pain salmeterol (From Advair Diskus) Allergy (Intermediate, Verified 09/30/24 10:53) Redness of Skin telmisartan (From MICARDIS) Allergy (Intermediate, Verified 09/30/24 10:53) DIFF BREATHING topiramate (From TOPAMAX) Allergy (Intermediate, Verified 09/30/24 10:53) HYPERTENSION tramadol (TRAMADOL) Allergy (Intermediate, Verified 09/30/24 10:53) DOES NOT LIKE Iodinated Contrast Media (IV Dye, Iodine Containing) Allergy (Mild, Verified 09/30/24 10:53) HEADACHE,SOB,LIP SWELLING ciprofloxacin (From Cipro) Adverse Reaction (Mild, Verified 09/30/24 10:53) ANXIETY clarithromycin (From Biaxin) Adverse Reaction (Mild, Verified 09/30/24 10:53) NAUSEA AND VOMITING pantoprazole (From Protonix) Adverse Reaction (Mild, Verified 09/30/24 10:53) NAUSEA AND VOMITING HPI Comments Details: The patient is a 79 y/o woman with a history of obstructive sleep apnea on CPAP in addition to intrinsic asthma and also hypogammaglobulinemia. She did see her plant nursery worker. She was placed on Symbicort and she had an adverse reaction with shortness of breath. Therefore, she will continue on the Flovent. She does have Xopenex. She does have episodes of shortness of breath at night time and now she knows that she is going to use the Xopenex. She did have an ultrasound to abnormal blood work demonstrating that she does have a gallbladder polyp. She is working closely with her woodworking bench carpenter for this. Having some nasal congestion and some upper airway secretions. Did do an x-ray in the x-ray was clear. She did finish a couple courses of antibiotics. She is immunocompromised and she knows that she does not clear infections quickly. She still has a cough and also has some chest tightness. But overall better than before. She continues uses CPAP. The CPAP therapy continues to be affecting beneficial. She does use it for more than 4 hours a night. 07/26/2022 the patient is here for a pulmonary follow-up visit. The patient has multiple complaints. She is struggling with the CPAP. She is tolerating the nasal pillows although she sometimes he gets any nasal congestion can tolerated. I did provide her with an F 30 I mask with a fullface mask. Size small. Seem to fit well. I did set up her machine for the fullface mask and cap the pressures the same 6-14. Her average pressure is 10 and her AHI was well below 1. I would was reassuring to her that the therapy has been working well. She needs to make sure she uses the machine 4 hours a night so it she can get the best effect from the machine. Hopefully with a full face much she can tolerate it better. She is doing well from a respiratory status. She is using inhalers every other day which seem to be helping decreasing hoarseness and tolerating them better. No significant wheezing or rhonchi that she can not complain about. She has not had any recent infections. She is using a mask the patient had a CT scan of the chest ordered by a different provider. It demonstrated some smile areas of atelectasis at the base. Otherwise no nodules of bronchiectasis appreciated. This is reassuring. However, the patient did have moderate degree of coronary artery calcifications. She was supposed to have a cardiac stress test. But she is concerned about adverse effects. I had recommended a Jolly nuclear stress test that she should be able to handle. For some reason she was not able to have a nuclear stress test. The patient needs to continue with wrist management as far as decreasing her cardiac risk and therefore using the CPAP therapy will be very important. Other risk modifications she can discuss with chemist inorganic and primary care. The patient does complaint of significant lower extremity edema. Appears to be symmetrical with her blood I leg being significantly swollen. Will be reasonable to do an ultrasound to rule out DVT. 10/15/2022 the patient is here for pulmonary follow-up visit. She has worsening respiratory symptoms. Has been having increasing wheezing for the last week. The patient has been using her nebulizer treatments several times a day. She is on maximal respiratory therapy. She has a hard time tolerating multiple inhalers and therefore the for have some limitations. The patient has been assessed for biologic therapy but the patient does not qualify. She is going to require additional prednisone at this time. She is reluctant to use is and she has had bad adverse effects in the past. Think she is also will be a good candidate for Daliresp. Specially because the fact she can not tolerate prednisone and frequent exacerbations. The patient also has significant immunodeficiency. She has been on prophylactic antibiotics. She has had increased chest congestion. Therefore, will switch her antibiotics over to doxycycline to make sure there were covering for for a lower respiratory infection. She still has lower extremity edema. She does have follow-up with chemist inorganic. Her lower extremity Dopplers were negative for DVT. The patient has been using her CPAP although she feels more congested after using it. We did download her machine. She is using more than 4 hours a night. His AHI is down to 1. I did adjust her pressures from 6-16 to 8 to 11 cm. 01/01/2023 the patient is here for a pulmonary follow-up visit. Since we last spoke she is been having a lot issues with dizziness vertigo migraines and falls. She is been very unsteady on her feet. She is following closely with Neurology. During the last visit back in October she was having issues with a underlying respiratory infection. She did take prednisone while on the prednisone her symptoms significantly improved. She does have nasal congestion now and nasal sinus pressure. She does have a pressure the years. The patient does have very retracted eardrums and significant erythema of the nasal turbinates. Likely a component of rhinosinusitis. This could be indirectly affecting her Dizziness symptoms. The patient has been using her respiratory therapy. She has not required her rescue inhaler. She continues uses CPAP every night. We did review the download. She does use it for more than 4 hours a night and her AHI is down to 1.2. Therefore she will continue with the current settings. She is doing really good on the CPAP at this time. She also finds it very effective in beneficial. 07/04/2023 the patient is here for a pulmonary follow-up visit. She has been having some issues with her insurance. She lost her [employer] and therefore she has been having difficulties with medication cost and other medical cost. She is currently appealing that decision. In the meantime she continues use her CPAP. The CPAP therapy continues to be affecting beneficial. She does use it for more than 4 hours a night. The patient also has been using her inhalers. Recently she did get a new prescription of QVAR. She is going to start that new. She did not tolerate the generic Flovent. She does have the immunodeficiency has been responding well to the azithromycin 3 times a week. She has been noticing increasing shortness of breath and chest tightness. She has not started the QVAR just yet although she does have wheezing on examination. I will give her a prednisone taper that she can start if her symptoms worsen and or she does not respond to the QVAR. 01/03/2024 the patient is here for a pulmonary follow-up visit. She continues to struggle with her inhalers. She can not find her that she can not tolerate. She does not tolerate powdered inhalers because she is allergic to them and also they irritate her throat. Therefore will stick to HFA. She has tried Symbicort in the past although he has been while. Will go ahead and trial Symbicort again she can start with 1 puff at a time to make sure she tolerates and then she can increase it as tolerated. In addition to that she continues on the azithromycin for immunodeficiency. Will go ahead and recheck her IgG level since it has been awhile. In addition to that will have her come back in 4 months with PFTs. She is tolerating the CPAP. The CPAP therapy has been affecting beneficial. She does use it for more than 4 hours. She does use nasal pillows. She gets supplies through [employer]. Will send a script at this time for additional supplies. 03/24/2024 the patient is here for pulmonary follow-up visit. The patient is doing well. She had COVID back in the fall. She did take Paxlovid. For now she has been stable. She has been tolerating the azithromycin 3 times a week as prophylaxis for her immunodeficiency. Her IgG levels continue to be significantly low but she is not interested in pursuing any augmentation therapy with IgG. The patient continues use her CPAP. CPAP therapy has been affecting beneficial. She does try to use more than 4 hours a night. She is currently going through a move so is been a little bit hard the last few weeks but she does find it very effective and therefore she continues use it. I will submit a prescription for supplies from her [employer] company. 09/30/2024 the patient is here for a pulmonary follow-up visit. Overall she is doing okay she is noticing increased cough and chest tightness. She has been wheezing lately. She is continues to Symbicort. She was given a prescription for Trelegy but she did not feel good on it. She has tried other inhalers and she has not done well on them. Seems to be just able to tolerate Symbicort and also Xopenex as needed. She has wheezing on exam and I did recommend she can start her nebulizer with the levo albuterol solution. In the meantime she also has immunodeficiencies. She has been on the macrolide therapy. Will go ahead and hold that and start her on doxycycline for 10 days. She will continue with the current respiratory therapy. As far as the oxygen the oxygen therapy continues to be affecting beneficial. She is wondering if she needs it with activity. At this point I doubt that she will qualify. We did tested the last time. Will plan to do another 6 minute walk test when she returns in 4-6 months. 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 She is working closely with physical therapy for that. [facility] Medical History (Updated 01/03/24 @ 10:29 by Alina Shoemaker PA-C) Osteopenia Tubular adenoma of colon Positional lightheadedness COPD (chronic obstructive pulmonary disease) Post herpetic neuralgia Hypothyroidism Heart murmur Vitamin D deficiency Hiatal hernia Bronchiectasis GWEN (obstructive sleep apnea) Fatty liver Diabetes type 2, controlled Obesity Hyperlipidemia HTN (hypertension) Asthma-COPD overlap syndrome Hypogammaglobulinemia Surgical History (Updated 01/03/24 @ 10:25 by Alina Shoemaker PA-C) History of total abdominal hysterectomy and bilateral salpingo-oophorectomy History of colonoscopy Retinal detachment Family History Father CVD (cardiovascular disease) Myocardial infarction Mother Breast cancer Diabetes mellitus Sister Cancer Kidney stone Son No problems noted. Social History Household Members: None Housing: Apartment Are you a primary critical care rn to a significant other at home: No Do you presently have visiting nurse or other home services: No Alcohol intake: never Patient Tobacco Use Status: Former Tobacco user e-Cigarette/Vaping Use: Never Used Second Hand Smoke Exposure: No service: No Current occupational status: disabled Cognitive needs: Yes Hearing needs: No Vision needs: Yes Review of Systems Const Denies body aches, Denies chills, Denies fatigue and Denies fever(s) Eyes Denies change in vision ENT Reports vertigo, Reports dizziness, Denies otalgia, Reports nasal congestion, Reports nasal discharge, Reports nasal obstruction, Reports sinus pressure and Denies sore throat Card Denies chest pain, Denies edema, Reports leg edema (R>L), Denies li ghtheadedness, Denies dyspnea and Reports dyspnea on exertion Resp Reports change in phlegm color, Reports chest congestion, Reports cough, Denies dyspnea, Reports dyspnea on exertion and Reports wheezing GI Denies abdominal pain, Denies constipation, Denies diarrhea, Denies nausea and Denies vomiting Denies hematuria, Denies dysuria and Denies flank pain Musc Details: Bilateral lower extremity redness and swelling R>L Reports back pain, Denies myalgias, Denies arthralgias, Denies joint swelling, Denies numbness and Denies tingling Skin/Breast Denies lesions and Denies rash Neuro Denies confusion, Reports vertigo, Reports dizziness, Denies numbness and Denies tingling Psych Denies confusion Endo Denies fatigue Aller/Immun Reports wheezing Physical Exam Vital Signs: Last Vital Signs Pulse 68 09/30/24 10:47 BP 120/58 L 09/30/24 10:47 Pulse Ox 97 09/30/24 10:47 Oxygen Delivery Method Room Air 09/30/24 10:47 BMI result Body Mass Index 36.5 Const General: No confusion Orientation/consciousness: No confusion HEENT Ears: TM abnormal retracted General nose exam: Abnormal mucous membranes and turbinates present erythematous Neck Neck: Yes normal visual inspection, Yes full ROM and Yes no lymphadenopathy Chest Chest palpation & inspection: normal inspection of the chest Resp Effort & Inspection: normal respiratory effort Auscultation: wheezes and diminished lung sounds Cardio Rate: regular rate Rhythm: regular rhythm Heart sounds: S1 normal heart sound present and S2 normal heart sound present GI Palpation (GI): Soft to palpation and nontender Auscultation: normal bowel sounds Skin General skin exam: rashes and/or lesions noted Neuro General: No confusion Extrem General: Yes edema (R>>L) Assessment & Plan Assessment & Plan (1) COPD (chronic obstructive pulmonary disease): Code(s): J44.9 - Chronic obstructive pulmonary disease, unspecified Category: Medical Qualifiers: COPD type: COPD with acute exacerbation Qualified Code(s): J44.1 - Chronic obstructive pulmonary disease with (acute) exacerbation (2) GWEN (obstructive sleep apnea): Comment: (on CPAP with good effect) Code(s): G47.33 - Obstructive sleep apnea (adult) (pediatric) Category: Medical (3) Asthma-COPD overlap syndrome: Code(s): J44.9 - Chronic obstructive pulmonary disease, unspecified Category: Medical (4) Hypogammaglobulinemia: Code(s): D80.1 - Nonfamilial hypogammaglobulinemia Category: Medical (5) Lower extremity edema: Code(s): R60.0 - Localized edema Category: Medical Plan continue Symbicort Xopenex as needed stopped spiriva due to coughing hold Azithromycin MWF start low dose prednisone taper start Doxycycline holding CPAP therapy continue 2L/min oxygen while sleeping, 6MWT during the next visit continue oxygen therapy while sleeping. Therapy effective and beneficial F/U 4-6 months Medications: New doxycycline hyclate 100 mg PO BID 20 caps 0RF 10 days prednisone PO daily; Take 2 tabs daily x 5 days, then 1 tab daily x 5 days 15 tabs 0RF 10 days Changed From levalbuterol tartrate 45 mcg/actuation (Xopenex HFA) 45 mcg inhalation DAILY PRN Shortness Of Breath Or Wheezing To levalbuterol tartrate 45 mcg/actuation (Xopenex HFA) 45 mcg inhalation DAILY PRN 15 grams 11RF Shortness Of Breath Or Wheezing 30 days From levalbuterol HCl (Xopenex) 1.25 mg inhalation Q4H PRN Shortness Of Breath Or Wheezing To levalbuterol HCl 1.25 mg (3 mL) inhalation Q4H 30 days PRN 180 mL 6RF Shortness Of Breath Or Wheezing Coding Level of Care Code Est Pt Level 4 (52312) Complex EM visit Add On G2211 Diagnoses Chronic obstructive pulmonary disease with acute exacerbation J44.1 COPD type: COPD with acute exacerbation GWEN (obstructive sleep apnea) G47.33 Asthma-COPD overlap syndrome J44.9 Hypogammaglobulinemia D80.1 Lower extremity edema R60.0 Time Spent (min) 18
--- OUTSIDE RECORDS SUMMARY | 2024-09-30 11:39 | XMS_ITS | Encounter Summary ---
Author Organization [facility] Address [address] [place] [id number] Phone Care Team Providers Care Pearl Fisherman Name Role Phone Mercedes Orr MD Primary Care Provid er Mame Salinas MD Primary Care Provid er Chuck Yu MD Unavailable Yeison Summers MD Unavailable [phone] Silvia Jones MD Unavailable Shazia Pearl MD Unavailable Juan Pablo Chang DPM Unavailable Juan Pablo Cordova MD Unavailable [phone] Navdeep Lyons MD Unavailable Silvia Jones MD Unavailable [phone] Ken Ackerman MD Unavailable Garrett Root MD Unavailable Cash Strong MD Unavailable [phone] Savage Sykes MD Unavailable Romie Vega MD Unavailable [phone] Bertin Pack DPM Unavailable + Juan Pablo Chang DPM Unavailable Caroline Razo MD Primary Care Provider Mame Salinas MD Primary Care Provid er Caroline Razo MD Primary Care Provider Mercedes Orr MD Primary Care Provid er Tiffanie Hendersonily OT Unavailable [phone] Wandy Beasley MD Primary Care Provid er Pcp, Unknown Primary Care Provider Unavailabl e Wandy Beaslye MD Primary Care Provid er Judith Mojica Primary Care Provider [phone] Encounter Details Date Type Department Care Team (Late st Contact Info) Description 10/11/2020 Procedure Pass Echo Lab [address] [place] [address] Social History Tobacco Use Types Packs/Day Years Used Date Smoking Tobacco: Never Smokeless Tobacco: Never Alcohol Use Standard Drinks/Week Comments Not Currently 0 (1 standard drink = 0.6 oz pur e alcohol) Comments Unknown Sex and Gender Information Value Date Recorded Sex Assigned at Female 08/10/2021 4:03 PM EDT Legal Sex Female 4:49 PM EST Gender Identity Female 08/10/2021 4:03 PM EDT Sexual Orientation Not on file documented as of this encounter Plan of Treatment Upcoming Encounters Date Type Department Care Team (Late st Contact Info) Description 11/16/2024 11:30 AM EDT Office Visit [facility] Medicine [address] [place] [address] [place] [id number] Judith Mojica [address] [place] [address], [address] [place] [address] [email or web address] 12/28/2024 10:30 AM EDT Office Visit [facility] Neurology [address] [place] [address] [place] [address] Alo Boyd MD [address] [facility] [place] [address] [email or web address] 01/07/2025 11:00 AM EDT Office Visit [facility] [address] [facility] [address]rd Floor, [address] [place] [address] Ken Ackerman MD [address] [facility], [address] [place] [address] [email or web address] documented as of this encounter Visit Diagnoses Not on filedocumented in this encounter Additional Health Concerns Infection Onset Date Last Indicated Resolved Time CoV-Exposed Comment:Recent close contact documented in the COVID-19 PCR/PRO order 02/03/2021 02/06/2021 02/10/2021 4:[address] documented as of this encounter Care Teams Pearl Fisherman Relationship Specialty Start Date End Date Mercedes Orr MD [address] [place] [phone] PCP - General Internal Medicine 06/21/20 12/06/20 Mame Salinas MD [address] [place] [phone] [email or web address] PCP - General Family Medicine 12/07/20 09/25/21 Caroline Razo MD [address] [place] [phone] PCP - General Internal Medicine 09/26/21 10/10/21 Mame Salinas MD [address] [place] [phone] [email or web address] [email or web address] PCP - General Family Medicine 10/11/21 12/15/21 Caroline Razo MD [address] [place] [address] [place] [address] [place] [phone] PCP - General Internal Medicine 12/16/21 11/28/22 Mercedes Orr MD [address] [place] [id number] PCP - General Internal Medicine 11/29/22 11/21/23 Wandy Beasley MD [address] [address] PCP - General Internal Medicine 11/22/23 05/25/24 Pcp, Unknown PCP - General 05/26/24 07/14/24 Wandy Beasley MD [address] [address] PCP - General Internal Medicine 07/15/24 09/17/24 Judith Mojica [address] [place] [address], [address] [place] [address] [email or web address] PCP - General Family Medicine 09/18/24 Chuck Yu MD [address] [place] [address] [place] [phone] Pulmonary Disease 12/09/20 Yeison Summers MD [address] [place] [address] [place] [phone] Gastroenterology 12/09/20 Silvia Jones MD [address] [place] [address] [address] [place] [address] [phone] Allergy and Immunology 12/09/20 Shazia Pearl MD [address] [place] [phone] Ophthalmology 12/09/20 Juan Pablo Chang DPM [address] [place] [phone] Podiatry 12/09/20 Juan Pablo Cordova MD [address] [place] [address] Neurology 04/30/21 Navdeep Lyons MD [address] [place] [address] Otolaryngology 04/30/21 Silvia Jones MD [address] [place] [phone] Allergy and Immunology 04/30/21 Ken Ackerman MD [address] [place] [phone] Cardiology 04/30/21 Garrett Root MD [address] [place] [phone] [email or web address] [email or web address] 04/30/21 Cash Strong MD [address] [place] [phone] Pulmonary Disease 04/30/21 Savage Sykes MD [address] [place] [phone] Sleep Medicine 04/30/21 Romie Vega MD [address] [place] [phone] Nephrology 07/01/21 Bertin Pack DPM [address] [place] [phone] Podiatry 07/01/21 Juan Pablo Chang DPM [address] [place] [phone] Podiatry 07/01/21 Tiffanie Henderson, OT [address] [place] [address] [email or web address] Transitions In House CraAssistant Chief Of Police Therapy 11/30/22 12/02/22 documented as of this encounter Additional Source Comments The information contained in this document represents components of the legal health record. It is not the complete legal health record.[facility]
--- OUTSIDE RECORDS SUMMARY | 2024-09-30 11:40 | XMS_ITS | Data Portability ---
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 We discussed that her inconsistent use of CPAP may be serving as a trigger for her symptoms. We discussed some of the dietary and lifestyle triggers that she has followed in the past and that I highly recommend she continue to follow. We discussed how her chronic neck pain may be serving as a chronic trigger for her symptoms and I recommended she speak with her physical therapist about this. If she continues to have chronic neck pain she may need referral to a cervical party supply specialist. In light of her chronic uncontrolled migraine I recommended she reconnect with [facility] neurology to discuss further treatments for chronic uncontrolled migraine, as she may be a candidate for one of the newer pharmacologic remedies for migraine. [email or web address] Not available 10/22/2023 11:25:34 05/04/2024 05/04/2024 79 year old herrera corral presents to the office requesting evaluation of her ears. Right ear was meticulously cleaned today with fine pics and suction. Patient is encouraged to avoid Q-tips in her ears relative to packing the wax in tighter. TMs intact with well aerated middle ear spaces. Discussed that if her symptoms persist she may benefit from further evaluation with a hearing test. She will follow up at her convenience for evaluation of her voice and swallowing issues. Certainly recommended that she keep her gastroenterology follow up for this as well. Not available 05/04/2024 11:47:59 06/08/2024 06/08/2024 79 year old herrera corral with dysphagia. She has GERD and has been on Prevacid for years. Fiberoptic laryngoscopy today was normal. I have ordered modified barium swallow which she prefers to do through [facility]. Recommend gastroenterology follow up and she does have upcoming appointment with them. Not available 06/08/2024 14:58:40 Plan of Treatment Reminders Order Date Submit Date Provider Last Modified By Organization Details Last Modified Time Details Appointments None recorded. Lab None recorded. Referral None recorded. Procedures None recorded. Surgeries None recorded. Imaging [place], modified barium swallow study 2024 025 [email or web address] [facility], [address] [place], [address], 14:27:01 Medication Orders None recorded. Patient TargetsNo targets recorded. Patient InstructionsNo instructions recorded. Reason for Referral None Reported. Results Created Date Observation Date Name Description Value Unit Range Abnormal Flag Note LastModifiedBy Organization Detail LastModifiedTime 10/30/1904/25/2021 imagi ng/di agnos tic resul t No observ ation record ed. [email or web address] Not Available 00:30:37 10/30/19 24 05/02/2021 imagi ng/di agnos tic resul t No observ ation record ed. [email or web address] Not Available 00:30:41 10/30/19 24 07/04/2018 imagi ng/di agnos tic resul t No observ ation record ed. [email or web address] Not Available 00:30:56 10/30/19 24 07/04/2018 imagi ng/di agnos tic resul t No observ ation record ed. [email or web address] Not Available 00:30:57 10/30/19 24 07/07/2018 audio gram No observ ation record ed. [email or web address] Not Available 00:31:00 10/30/19 24 01/30/2021 imagi ng/di agnos tic resul t No observ ation record ed. [email or web address] Not Available 00:31:18 10/30/19 24 04/25/2021 audio gram No observ ation record ed. [email or web address] Not Available 00:31:52 10/30/19 24 07/07/2018 audio gram No observ ation record ed. [email or web address] Not Available 00:32:15 Result Notes None recorded. Problems Name Problem SNOMED Code Status Onset Date Resolution Date Notes Provider Name and Address Organization Details Recorded Time Micah floyd 55635877 Active 2014 Diseases of the salivary glands: Sialoade nitis; Note: Date Diagnose d: 5 1:38 PM (527.2) Not Available [facility] 4 02:33:18 Type 2 diabetes mellitus without complica tion 238735586 Active 2016 Type 2 diabetes mellitus without complica tions; Note: Date Diagnose d: 7 2:03 PM (E11.9) Not Available [facility] 4 02:33:09 Singers' nodes 83082254 Active 2016 Nodules of vocal cords; Note: Date Diagnose d: 7 2:06 PM (J38.2) Not Available [facility] 4 02:33:16 Gastroes ophageal reflux disease without esophagi tis 655959559 Active 2016 Gastro-e sophagea l reflux disease without esophagi tis; Note: Date Diagnose d: 7 2:06 PM (K21.9) Not Available [facility] 4 02:33:22 Dysphoni a 48907828 Active 2016 Hoarsene ss; Note: Date Diagnose d: 7 2:01 PM (R49.0) Not Available [facility] 4 02:33:17 Otorrhea of right ear [id number] 48755 Active 2018 Otorrhea , right ear; Note: Date Diagnose d: 06/17/2018 11:38 AM (H92.11) Not Available [facility] 4 02:33:19 Dizzines s and giddines s 369575717 Active 2018 Dizzines s and giddines s; Note: Date Diagnose d: 9 10:28 AM (R42) Not Available [facility] 4 02:33:26 Benign paroxysm al position al vertigo 628425363 Completed 201810/11/2023 Benign paroxysm al vertigo, left ear; Note: Date Diagnose d: 9 11:04 AM (H81.12) Not Available [facility] 4 02:33:15 Sensorin eural hearing loss 46304198 Active 2018 Sensorin eural hearing loss, unilater al, left ear, with unrestri cted hearing on the contrala teral side; Note: Date Diagnose d: 9 10:28 AM (H90.42) Not Available [facility] 4 02:33:11 Bilatera l tinnitus 34028689517 02 Active 2018 Tinnitus , bilatera l; Note: Date Diagnose d: 9 10:28 AM (H93.13) Not Available [facility] 4 02:33:12 Refracto ry migraine 585585861 Active 2021 Other migraine , intracta ble, without status migraino selene; Note: Date Diagnose d: 2 1:40 PM (G43.819 ) Not Available [facility] 4 02:33:27 Allergic rhinitis 50113391 Active 2021 Other allergic rhinitis ; Note: Date Diagnose d: 2 1:47 PM (J30.89) Not Available [facility] 4 02:33:14 Vertigo of central origin 03846305 Active 2021 Vertigo of central origin; Note: Date Diagnose d: 2 1:40 PM (H81.4) Not Available [facility] 4 02:33:18 Obstruct raine sleep apnea syndrome 11828592 Active 2021 Obstruct raine sleep apnea (adult) (pediatr ic); Note: Date Diagnose d: 2 1:42 PM (G47.33) Not Available [facility] 4 02:33:24 Chronic cough 42378991 Active 2022 Chronic cough; Note: Date Diagnose d: 09/09/2022 10:54 AM (R05.3) Not Available [facility] 4 02:33:20 Benign paroxysm al position al vertigo 194128795 Active 2023 ALEJANDRO ARGUELLO MD [address] [facility],[place] [address], [facility] [place], [address] , [facility] 4 11:20:52 Neck pain 76469875 Active 2023 ALEJANDRO ARGUELLO MD [address] [facility],[place] [address], [facility] [place], [address] , [facility] - [facility] 4 11:21:17 Impacted cerumen in right ear 53305500866 99752 Active 2024 HOMERO GAGE PA-C [address] [place] [address],[place] [address], [facility] [place], [address] , [facility] - [facility] 5 11:46:00 Dysphagi a 87028872 Active 2024 HOMERO GAGE PA-C [address] [facility],[place] [address], [facility] [place], [address] , [facility] - [facility] 5 14:15:22 Problem Notes None recorded. Procedures Surgical History Date Name Laterality Status Provider Name and Address Organization Details Recorded Time 06/09/19 25 FOL_DP completed HOMERO GAGE PA-C [address] [facility], [place], [address], [facility] - [facility] 06/08/2024 14:16:41 05/04/19 25 Cerumen removal without microscope right completed HOMERO GAGE PA-C [address] [facility], [place], [address], [facility] - [facility] 05/04/2024 11:45:37 Hysterectomy completed Mercedes Gonzalez [place] - [facility] 10/22/2023 11:01:15 Carpal tunnel surgery completed Mercedes Gonzalez [place] - [facility] 10/22/2023 11:01:28 procedure on retina completed Mercedes Gonzalez [place] - [facility] 10/22/2023 11:01:40 Imaging Results None recorded. Procedure Notes None recorded. Medical Equipment None Reported. Allergies Allergen ID Allergen Name Allergen Category Reaction Reaction Severity Criticality Documentation Date Start Date Code Code System Note Provider Name and Address Organization Details Recorded Time 05397 latex environme nt,medica tion other Not available Not available 07/23/2023 63580 91 RxNorm React ion: unkno wn, unspe cifie d;; Not Available [facility] 4 00:56:49 06829 clarithro mycin medicatio n other Not available Not available 07/23/2023 84840 RxNorm React ion: unkno wn, unspe cifie d;; Not Available [facility] 4 00:56:51 60442 ciproflox acin hydrochlo ride medicatio n other Not available Not available 07/23/2023 55784 RxNorm React ion: unkno wn, unspe cifie d;; Not Available [facility] 4 00:56:55 76404 pregabali n medicatio n other Not available Not available 07/23/2023 81484 2 RxNorm React ion: unkno wn, unspe cifie d;; Not Available [facility] 4 00:56:56 35162 Macrobid medicatio n other Not available Not available 07/23/2023 16761 1 RxNorm React ion: unkno wn, unspe cifie d;; Not Available [facility] 4 00:56:57 12902 diazepam medicatio n other Not available Not available 07/23/2023 3322 RxNorm React ion: unkno wn, unspe cifie d;; Not Available [facility] 4 00:56:59 32309 Substance with sulfonami de structure and antibacte rial mechanism of action (substanc e) medicatio n other Not available Not available 07/23/2023 30303 8003 SNOMED React ion: unkno wn, unspe cifie d;; Not Available [facility] 4 00:57:01 13852 Iodine and/or iodine compound (substanc e) Not available other Not available Not available 07/23/2023 15322 6004 SNOMED React ion: unkno wn, unspe cifie d;; Not Available [facility] 4 00:57:04 Medications Name Sig Start Date Stop Date Status Note LastModified by Organization Details LastModified Time freestyle lancets misc 10/21 completed Not Available Not Available Not Available Singulair 10 mg tablet 03/24 completed Medicati on ID: [id number] Du ration Value: 90 Brand Name: Singulai r Send Method: E-Prescr ibed Sub s Allowed: subs OK Speci al Instruct ion: TAKE 1 TABLET BY MOUTH EVERY EVENING Medicati onGeneri cName: Singulai r Not Available Not Available Not Available atorvasta tin 40 mg tablet 05/04 completed Medicati on ID: [id number] B rand Name: atorvast atin Sen d Method: E-Prescr ibed Sub s Allowed: subs OK Medic ationGen ericName : atorvast atin Not Available Not Available Not Available buspirone 5 mg tablet 10/21 completed Medicati on ID: [id number] B rand Name: buspiron e Send Method: E-Prescr ibed Sub s Allowed: subs OK Medic ationGen ericName : buspiron e Not Available Not Available Not Available prednison e 10 mg tablet TAKE 1 TABLET BY MOUTH 2 TIMES A DAY,X4 DAYS,WIT H FOOD 05/04 completed Not Available Not Available Not Available doxycycli ne hyclate 100 mg capsule TAKE 1 CAPSULE BY MOUTH TWICE DAILY FOR 10 DAYS 05/04 completed Not Available Not Available Not Available albuterol sulfate 2.5 mg/3 mL (0.083 %) solution for nebulizat ion INHALE THE CONTENTS OF 1 VIAL VIA NEBULIZE R BY MOUTH EVERY 4-6 HOURS active Not Available Not Available No t Available azithromy heather 250 mg tablet 10/21 completed Not Available Not Available Not Available fluconazo le 150 mg tablet TAKE 1 TABLET BY MOUTH 1 TIME 10/21 completed Not Available Not Available Not Available citalopra m 10 mg tablet TAKE 1/2 TABLET BY MOUTH ONCE DAILY X1 WEEK THEN 1 TABLET ONCE DAILY active Not Available Not Available No t Available epinephri ne (Jr) 0.15 mg/0.3 mL injection ,auto-inj octavio INJECT 0.15 MG INTO THE MUSCLE EVERY 30 MINUTES NEEDED FOR ANAPHYLA XIS FOR 30 DAYS DO NOT EXCEED 12 DOSES PER 24 HOURS 10/21 completed Not Available Not Available Not Available FreeStyle Lancets 28 gauge USE TO TEST BLOOD SUGAR UP DAILY FOR DM TYPE 2 E11.9 05/04 completed Not Available Not Available Not Available lisinopri l 20 mg tablet active Not Available Not Available Not Available Synthroid 125 mcg tablet active Not Available Not Available Not Available prednison e 20 mg tablet 03/24 completed Medicati on ID: [id number] Du ration Value: 7 Brand Name: predniso ne Send Method: E-Prescr ibed Sub s Allowed: subs OK Speci al Instruct ion: TAKE 1 TABLET BY MOUTH ONCE A DAY FOR 7 DAYS Med icationG enericNa me: predniso ne Not Available Not Available Not Available clonazepa m 0.5 mg tablet TAKE 1/2 TABLET BY MOUTH 2 TIMES A DAY NEEDED FOR ANXIETY 05/04 completed Not Available Not Available Not Available prednison e 5 mg tablet 05/04 completed Not Available Not Available Not Available hydralazi ne 25 mg tablet 05/04 completed Not Available Not Available Not Available meclizine 12.5 mg tablet 10/21 completed Medicati on ID: [id number] B rand Name: meclizin e Send Method: E-Prescr ibed Sub s Allowed: subs OK Medic ationGen ericName : meclizin e Not Available Not Available Not Available amlodipin e 2.5 mg tablet 10/21 completed Not Available Not Available Not Available triamcino lone acetonide 0.1 % topical cream APPLY A THIN FILM TOPICALL Y 2 TIMES A DAY FOR 14 DAYS 05/04 completed Not Available Not Available Not Available Prevacid 30 mg capsule,d elayed release active Not Available Not Available Not Available ketorolac 0.5 % eye drops INSTILL 1 DROP INTO BOTH EYES 4 TIMES A DAY 05/04 completed Not Available Not Available Not Available alprazola m 0.25 mg tablet 10/21 completed Medicati on ID: [id number] B rand Name: alprazol am Send Method: E-Prescr ibed Sub s Allowed: subs OK Medic ationGen ericName : alprazol am Not Available Not Available Not Available famotidin e 20 mg tablet 10/21 completed Medicati on ID: [id number] B rand Name: famotidi ne Send Method: E-Prescr ibed Sub s Allowed: subs OK Medic ationGen ericName : famotidi ne Not Available Not Available Not Available prednisol one acetate 1 % eye drops,selene pension INSTILL 1 DROP INTO BOTH EYES FOUR TIMES A DAY FOR 1 WEEK 10/21 completed Not Available Not Available Not Available cephalexi n 500 mg capsule TAKE 1 CAPSULE BY MOUTH EVERY 8 HOURS FOR 7 DAYS 05/04 completed Not Available Not Available Not Available lisinopri l 10 mg tablet 10/21 completed Not Available Not Available Not Available lidocaine 5 % topical patch APPLY 1 PATCH TOPICALL Y EVERY DAY NEEDED FOR PAIN. REMOVE AFTER 12 HOURS. 05/04 completed Not Available Not Available Not Available FML Forte 0.25 % eye drops,selene pension 10/21 completed Not Available Not Available Not Available Xopenex 1.25 mg/3 mL solution for nebulizat ion USE 1 VIAL VIA NEBULIZE R EVERY 4 HOURS NEEDED 10/21 completed Not Available Not Available Not Available Ear Drops (carbamid e peroxide) 6.5 % PLACE 4-5 DROPS IN EARS DAILY FOR 4 DAYS NEEDED active Not Available Not Available No t Available triamcino lone acetonide 0.025 % topical ointment APPLY TOPICALL Y TO THE AFFECTED AREA TWICE DAILY 05/04 completed Not Available Not Available Not Available lisinopri l 30 mg tablet 10/21 completed Not Available Not Available Not Available mometason e 50 mcg/actua tion nasal spray 10/21 completed Not Available Not Available Not Available hydrocort isone 2.5 % topical cream APPLY TOPICALL Y TO THE AFFECTED AREA THREE TIMES DAILY 05/04 completed Not Available Not Available Not Available gabapenti n 100 mg capsule TAKE 1 CAPSULE BY MOUTH EVERY NIGHT AT BEDTIME 10/21 completed Not Available Not Available Not Available lotepredn ol etabonate 0.5 % eye drops,selene pension INSTILL 1 DROP INTO RIGHT EYE 3 TIMES A DAY FOR 2 WEEKS THEN DISCONTI NUE active Not Available Not Available No t Available Verelan PM 300 mg capsule, extended release active Not Available Not Available Not Available epinephri ne 0.3 mg/0.3 mL injection , auto-inje ctor INJECT 0.3 MG INTRAMUS CULARLY ONCE active Not Available Not Available No t Available lisinopri l 40 mg tablet active Not Available Not Available Not Available doxycycli ne hyclate 100 mg tablet 03/24 completed Medicati on ID: [id number] Du ration Value: 30 Brand Name: doxycycl ine hyclate Send Method: E-Prescr ibed Sub s Allowed: subs OK Speci al Instruct ion: TAKE 1 TABLET BY MOUTH ONCE A DAY Medi cationGe nericNam e: doxycycl ine hyclate Not Available Not Available Not Available Synthroid 137 mcg tablet TAKE 1 TABLET BY MOUTH EVERY MORNING active Not Available Not Available No t Available Zetia 10 mg tablet active Not Available Not Available No t Available cyclobenz aprine 5 mg tablet 10/21 completed Medicati on ID: [id number] B rand Name: cycloben zaprine Send Method: E-Prescr ibed Sub s Allowed: subs OK Medic ationGen ericName : cycloben zaprine Not Available Not Available Not Available Restasis 0.05 % eye drops in a dropperet te 10/21 completed Not Available Not Available Not Available Flovent HFA 220 mcg/actua tion aerosol inhaler 05/04 completed Medicati on ID: [id number] B rand Name: Flovent HFA Send Method: E-Prescr ibed Sub s Allowed: subs OK Medic ationGen ericName : Flovent HFA Not Available Not Available Not Available Advair HFA 115 mcg-21 mcg/actua tion aerosol inhaler 10/21 completed Medicati on ID: [id number] B rand Name: Advair HFA Send Method: E-Prescr ibed Sub s Allowed: subs OK Medic ationGen ericName : Advair HFA Not Available Not Available Not Available Xopenex HFA 45 mcg/actua tion aerosol inhaler active Not Available Not Available Not Available Pulmicort Flexhaler 180 mcg/actua tion breath activated TAKE 1 PUFF BY MOUTH TWICE A DAY 05/04 completed Not Available Not Available Not Available Symbicort 160 mcg-4.5 mcg/actua tion HFA aerosol inhaler active Not Available Not Available Not Available FreeStyle Lite Strips USE TO TEST BLOOD SUGAR DAILY FOR DM TYPE 2 E11.9 05/04 completed Not Available Not Available Not Available Retaine MGD (PF) 0.5 %-0.5 % eye drops in a dropperet te INSTILL 1 DROP IN BOTH EYES FOUR TIMES DAILY 10/21 completed Not Available Not Available Not Available Spiriva Respimat 2.5 mcg/actua tion solution for inhalatio n 05/04 completed Not Available Not Available Not Available Asmanex HFA 200 mcg/actua tion aerosol inhaler 10/21 completed Not Available Not Available Not Available Arnuity Ellipta 200 mcg/actua tion powder for inhalatio n 10/21 completed Not Available Not Available Not Available Xiidra 5 % eye drops in a dropperet te INSTILL 1 DROP IN BOTH EYES TWICE DAILY 10/21 completed Not Available Not Available Not Available Cequa 0.09 % eye drops in a dropperet te INSTILL 1 DROP INTO BOTH EYES TWICE A DAY active Not Available Not Available No t Available Paxlovid 150 mg-100 mg tablets in a dose pack (Moderate Renal Dose) TAKE 2 TABLETS BY MOUTH TWICE A DAY FOR 5 DAYS 05/04 completed Not Available Not Available Not Available Xdemvy 0.25 % eye drops INSTILL 1 DROP INSTILL BOTH EYES TWICE DAILY FOR 6 WEEKS active Not Available Not Available No t Available Vitals Date Recorded Body height Body mass index (BMI) Body weight Provider Name and Address Organization Details Last Updated DateTime 06/08/2024 157.48 cm 35.3 kg/m2 06669.33 g Jued Humphries [place] - [facility] 06/08/2024 14:02:37 Social History None recorded. Functional Status None recorded. Mental Status None recorded. Family History Nothing Reported. Medical History Condition Response Allergies/Hayfever Y Migraines Y Thyroid Problems Y Diabetes Y Asthma Y High Cholesterol Y Sleep Disorder Y Hypertension Y Gynecological HistoryNo gynecological history recorded. Obstetrics History GPAL:G 0 P 0 0 0 0 Past Encounters Encounter ID Performer Location Encounter Start Date Encounter Closed Date Diagnosis/Indication Diagnosis SNOMED-CT Code Diagnosis ICD10 Code Diagnosis Note [id number] ALEJANDRO ARGUELLO MD [facility] [address] [address] 10/22/2023 10:30:35 10/22/2023 11:25:06 Benign paroxysmal positional vertigo 541762850 H81.12 Patient also has episodic positional ly induced vertigo. Anni-Hallpi ke was positive for vertigo and rotary nystagmus with the head to the left. 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 The pathophysi ology of BPPV was discussed in detail. Patient already has an appointmen t with [facility] for Raza maneuvers and vestibular therapy. We discussed the fact that treatment of BPPV can require anywhere from 1 to 6 treatments for successful results, and has approximat lola 95% success rate in eliminatin g symptoms. BPPV can recur and if the classic positional ly induced symptoms do recur, patient can call for further referrals. Neck pain 98846362 M54.2 Obstructiv e sleep apnea syndrome 75304406 G47.33 Refractory migraine 4238 26172 G43.819 Type 2 jyoti betes mellitus without complication 998859275 E11.9 Vertigo of central origin 31629398 H81.4 [id number] HOMERO GAGE PA-C [facility] on [address] [place] [address] 05/04/2024 10:45:42 05/04/2024 11:18:18 Impacted cerumen in right ear 3309667884 167111 H61.21 [id number] HOMERO GAGE PA-C [facility] on [address] [place] [address] 06/08/2024 13:56:25 06/08/2024 14:27:01 Dysphonia 84926667 R49.0 Dysphagia 57604602 R13.1 0 Health Concerns Section Related Observation LastModified by Organization Detai ls LastModified Time None Recorded Concern Status LastModified by Organization Details LastModified Time None Recorded Advance Directives Directive None Recorded Payers Insurance Date Sequence Insurance Name Policy Number Policy Keys Covered Member ID Keys Member ID Guarantor Name 06/09/2024 2 [place] [facility] Dixie Hui Peloquin [id number] Dixie Ez Peloquin 06/03/2024 1 MEDICARE B-[place]: [facility] Dixie Ez Peloquin [id number] Dixie Ez Peloquin Notes Date Note Type Note Provider Name and Address Organization Details Recorded Time 10/22/2023 text/html 78-year-old herrera corral who I evaluated back in June 2021. Patient has chronic persistent uncontrolled migraine with associated blurry vision, dizziness and jittery visual changes. She has frequent migraine with visual aura. She has obstructive sleep apnea which she uses CPAP 5-6 days per week. At her last visit we had a long discussion regarding vestibular migraine and a provided the patient a significant amount of literature regarding identification and elimination of migraine triggers. I recommended she go back to her neurologist to discuss pharmacologic treatment for migraine. Patient saw Dr. Qureshi in neurology back in February. He thought that her migraine symptoms may be related to her neck and back pain. She has not had any specific therapy for the neck and back pain since then. Dr. Qureshi recommended postponing use of pharmacologic intervention based on her response to her neck and back pain evaluation and treatment. Patient chronically feels unsteady on her feet and uses a cane to ambulate. She has been getting a zapping in my head sensation on a more frequent basis recently. She is getting headaches every single day which waxes and wanes in severity.. She is having some positionally induced vertigo and has an appointment with [facility] coming up in a couple of weeks. ALEJANDRO ARGUELLO MD [address] [place] [address], [place], [address], [facility] [facility] 10/22/2023 11:26:16 05/04/2024 text/html 79 year old herrera corral presents to the office requesting evaluation of her ears. She reports intermittent earaches over the past couple of months especially in the right ear. She denies associated change in her hearing. Sometimes it will feel like she is underwater. This sensation lasts about 5-6 minutes and then it stops on its now. She is currently asymptomatic. Patient also reports that she has upcoming appointment with motor vehicle dispatcher Dr. Summers in [place] for evaluation of swallowing issues. Sometimes when she swallows she feels that something sticks. Sometimes food gets stuck. She has not had a barium swallow. She reports some hoarseness. At some point she would like to set up evaluation to look at her vocal cords. She had vocal cord nodule in the past. Patient also follows with Dr. Cordova in neurology for migraines. ALEJANDRO ARGUELLO MD [address] [facility],[address], [id number], [place] - [facility] 05/06/2024 07:32:13 06/08/2024 text/html 79 year old herrera corral presents for evaluation of dysphagia. Following her last office visit she did not end up seeing Dr. Summers of gastroenterology. She is changing care and has an appointment in the next few months in [place] and will see Ken Mantilla MD. She reports that sometimes when she swallows she feels that food gets stuck in her throat. Sometimes she chokes on her own spit. She has not had a barium swallow. She reports that some days she gets hoarse. She had vocal cord nodule in the past. She takes Prevacid 30 mg nightly for acid reflux and has taken this for at least the last 25 years. She is a former smoker and quit over 40 years ago. She continues to suffer from uncontrolled migraines. She is currently doing physical therapy for her back. TABITHA ANDRADE MD [address] [facility],[address], [address], [facility] - [facility] 06/08/2024 16:46:13 OBGyn Episode No OBEpisode recorded.
--- OUTSIDE RECORDS SUMMARY | 2024-09-30 11:40 | XMS_ITS | Patient Health Record ---
Author Organization [facility] Address [address] [place] [address] Support Name Relationship Address Phone Gonsalo Limon Emergency Contact [address] [place] [address] [address] [place], [place] [id number] Dixie Cevallos Guarantor Unknown [phone] Reason For Referral No Information Medications Medication [...] End Date MEDICARE B [address] [facility] [place] [id number] Dixie Cevallos Self - patient is the insured [place] Medicaid [address] [place] [address] [id number] Dixie Cevallos Self - patient is the insured Medical (General) History Surgical History Surgery Date(Month/Year) Prior surgeries include bila teral detached retinal surgery Prior surgeries include bilateral detached retinal surgery 2010-09-29
--- OUTSIDE RECORDS SUMMARY | 2024-09-30 11:40 | XMS_ITS | Encounter Summary ---
Author Organization [facility] Address [address] [place] [address] Phone Care Team Providers Care Rn Call Center Name Role Phone Wandy Beasley MD Primary Care Provider [phone] Encounter Details Date Type Department Care Team ([facility] Contact Info) Description 01/07/2024 Documentation Only [facility], [address] [place] [address] [place], [place] [address] [place] [address] Social History Tobacco Use Types Packs/Day Years Used Date Smoking Tobacco: Former Cigarettes Q uit: 03/11/1989 Smokeless Tobacco: Never Comments:Smoking History Inf o:Every day Alcohol Use Standard Drinks/Week Comments Yes 0 (1 standard drink = 0.6 oz pure alcohol) Alcoholic Drinks/day: Occasional social drink Comments Unknown Sex and Gender Information Value Date Recorded Sex Assigned at Not on file Legal Sex Female 5:03 PM EST Gender Identity Not on file Sexual Orientation Not on file documented as of this encounter Plan of Treatment Upcoming Encounters Date Type Department Care Team (Late Contact Info) Description 10/29/2024 4:00 PM EDT Office Visit [facility] [address] [place] [address] Lionel Cote MD [address] [address] documented as of this encounter Visit Diagnoses Not on filedocumented in this encounter Care Teams Rn Call Center Relationship Specialty Start Date End Date Wandy Beasley MD [address] [place] [address] PCP - General Internal Medicine 08/19/23 documented as of this encounter
== END 2024-09-30 11:28 | disposition home or self-care (01) ==
LOC: HO.HPS 10:37
PROVIDERS: PCP Pediatrics; Visit Provider Hospitalist
DX: J44.1 Chronic obstructive pulmonary disease with (acute) exacerbation (principal); G47.33 Obstructive sleep apnea (adult) (pediatric); J44.9 Chronic obstructive pulmonary disease, unspecified; D80.1 Nonfamilial hypogammaglobulinemia; R60.0 Localized edema
CPT/HCPCS: 99214; G2211

== ENCOUNTER → 2024-09-30 10:37 | Outpatient (BNVA) | payer MEDICARE, MEDICAID, SELFPAY | PROVIDERS: PCP Pediatrics; Visit Provider Hospitalist | DX: J44.1 Chronic obstructive pulmonary disease with (acute) exacerbation (principal); G47.33 Obstructive sleep apnea (adult) (pediatric); D80.1 Nonfamilial hypogammaglobulinemia; D84.9 Immunodeficiency, unspecified; R60.0 Localized edema; Z99.89 Dependence on other enabling machines and devices; Z79.52 Long term (current) use of systemic steroids; Z79.899 Other long term (current) drug therapy | CPT/HCPCS: 99212 ==

== ENCOUNTER 2025-02-01 10:02 | Outpatient (AMB) | payer MEDICARE, MEDICAID, SELFPAY ==
--- NOTE | 2025-02-01 10:06 | MHC.OFFVIS ---
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: No Accompanied by: Self / Same As Patient Allergies amoxicillin (AMOXICILLIN) Allergy (Severe, Verified 02/01/25 10:09) NAUSEA & VOMITING atorvastatin (Lipitor) Allergy (Severe, Verified 02/01/25 10:09) severe back pain Biaxin Allergy (Severe, Verified 02/01/25 10:09) Anaphylaxis budesonide (Symbicort) Allergy (Severe, Verified 02/01/25 10:09) shortness of breath celecoxib (From CELEBREX) Allergy (Severe, Verified 02/01/25 10:09) HEART RACING clavulanic acid (From AUGMENTIN) Allergy (Severe, Verified 02/01/25 10:09) FEELS WIERD diazepam (Valium) Allergy (Severe, Verified 02/01/25 10:09) heart rate esomeprazole (Nexium) Allergy (Severe, Verified 02/01/25 10:09) back pain ezetimibe (Zetia) Allergy (Severe, Verified 02/01/25 10:09) anaphylaxis famotidine (Pepcid) Allergy (Severe, Verified 02/01/25 10:09) Back Pain irbesartan (Avapro) Allergy (Severe, Verified 02/01/25 10:09) Stomach Pain nitrofurantoin (Macrobid) Allergy (Severe, Verified 02/01/25 10:09) Stomach Pain shellfish derived Allergy (Severe, Verified 02/01/25 10:09) ANAPHYLAXIS Sulfa (Sulfonamide Antibiotics) Allergy (Severe, Verified 02/01/25 10:09) ANAPHYLAXIS, tongue swelling fluticasone (From Advair Diskus) Allergy (Intermediate, Verified 02/01/25 10:09) Redness of Skin formoterol (Symbicort) Allergy (Intermediate, Verified 02/01/25 10:09) shortness of breath latex (LATEX) Allergy (Intermediate, Verified 02/01/25 10:09) RASH levofloxacin (From LEVAQUIN) Allergy (Intermediate, Verified 02/01/25 10:09) DOES FEEL GOOD metformin Allergy (Intermediate, Verified 02/01/25 10:09) diarrhea pregabalin (From LYRICA) Allergy (Intermediate, Verified 02/01/25 10:09) FELT LIKE HEART ATTACK rabeprazole (From ACIPHEX) Allergy (Intermediate, Verified 02/01/25 10:09) FELT AWFUL rosuvastatin (Crestor) Allergy (Intermediate, Verified 02/01/25 10:09) severe back pain salmeterol (From Advair Diskus) Allergy (Intermediate, Verified 02/01/25 10:09) Redness of Skin telmisartan (From MICARDIS) Allergy (Intermediate, Verified 02/01/25 10:09) DIFF BREATHING topiramate (From TOPAMAX) Allergy (Intermediate, Verified 02/01/25 10:09) HYPERTENSION tramadol (TRAMADOL) Allergy (Intermediate, Verified 02/01/25 10:09) DOES NOT LIKE Iodinated Contrast Media (IV Dye, Iodine Containing) Allergy (Mild, Verified 02/01/25 10:09) HEADACHE,SOB,LIP SWELLING ciprofloxacin (From Cipro) Adverse Reaction (Mild, Verified 02/01/25 10:09) ANXIETY clarithromycin (From Biaxin) Adverse Reaction (Mild, Verified 02/01/25 10:09) NAUSEA AND VOMITING pantoprazole (From Protonix) Adverse Reaction (Mild, Verified 02/01/25 10:09) NAUSEA AND VOMITING HPI Comments Details: The patient is a 79 y/o woman with a history of obstructive sleep apnea on CPAP in addition to intrinsic asthma and also hypogammaglobulinemia. She did see her secret code expert. She was placed on Symbicort and she had an adverse reaction with shortness of breath. Therefore, she will continue on the Flovent. She does have Xopenex. She does have episodes of shortness of breath at night time and now she knows that she is going to use the Xopenex. She did have an ultrasound to abnormal blood work demonstrating that she does have a gallbladder polyp. She is working closely with her track machine operator repairer for this. Having some nasal congestion and some upper airway secretions. Did do an x-ray in the x-ray was clear. She did finish a couple courses of antibiotics. She is immunocompromised and she knows that she does not clear infections quickly. She still has a cough and also has some chest tightness. But overall better than before. She continues uses CPAP. The CPAP therapy continues to be affecting beneficial. She does use it for more than 4 hours a night. 07/26/2022 the patient is here for a pulmonary follow-up visit. The patient has multiple complaints. She is struggling with the CPAP. She is tolerating the nasal pillows although she sometimes he gets any nasal congestion can tolerated. I did provide her with an F 30 I mask with a fullface mask. Size small. Seem to fit well. I did set up her machine for the fullface mask and cap the pressures the same 6-14. Her average pressure is 10 and her AHI was well below 1. I would was reassuring to her that the therapy has been working well. She needs to make sure she uses the machine 4 hours a night so it she can get the best effect from the machine. Hopefully with a full face much she can tolerate it better. She is doing well from a respiratory status. She is using inhalers every other day which seem to be helping decreasing hoarseness and tolerating them better. No significant wheezing or rhonchi that she can not complain about. She has not had any recent infections. She is using a mask the patient had a CT scan of the chest ordered by a different provider. It demonstrated some smile areas of atelectasis at the base. Otherwise no nodules of bronchiectasis appreciated. This is reassuring. However, the patient did have moderate degree of coronary artery calcifications. She was supposed to have a cardiac stress test. But she is concerned about adverse effects. I had recommended a Jolly nuclear stress test that she should be able to handle. For some reason she was not able to have a nuclear stress test. The patient needs to continue with wrist management as far as decreasing her cardiac risk and therefore using the CPAP therapy will be very important. Other risk modifications she can discuss with packer and carry out and primary care. The patient does complaint of significant lower extremity edema. Appears to be symmetrical with her blood I leg being significantly swollen. Will be reasonable to do an ultrasound to rule out DVT. 10/15/2022 the patient is here for pulmonary follow-up visit. She has worsening respiratory symptoms. Has been having increasing wheezing for the last week. The patient has been using her nebulizer treatments several times a day. She is on maximal respiratory therapy. She has a hard time tolerating multiple inhalers and therefore the for have some limitations. The patient has been assessed for biologic therapy but the patient does not qualify. She is going to require additional prednisone at this time. She is reluctant to use is and she has had bad adverse effects in the past. Think she is also will be a good candidate for Daliresp. Specially because the fact she can not tolerate prednisone and frequent exacerbations. The patient also has significant immunodeficiency. She has been on prophylactic antibiotics. She has had increased chest congestion. Therefore, will switch her antibiotics over to doxycycline to make sure there were covering for for a lower respiratory infection. She still has lower extremity edema. She does have follow-up with packer and carry out. Her lower extremity Dopplers were negative for DVT. The patient has been using her CPAP although she feels more congested after using it. We did download her machine. She is using more than 4 hours a night. His AHI is down to 1. I did adjust her pressures from 6-16 to 8 to 11 cm. 01/01/2023 the patient is here for a pulmonary follow-up visit. Since we last spoke she is been having a lot issues with dizziness vertigo migraines and falls. She is been very unsteady on her feet. She is following closely with Neurology. During the last visit back in October she was having issues with a underlying respiratory infection. She did take prednisone while on the prednisone her symptoms significantly improved. She does have nasal congestion now and nasal sinus pressure. She does have a pressure the years. The patient does have very retracted eardrums and significant erythema of the nasal turbinates. Likely a component of rhinosinusitis. This could be indirectly affecting her Dizziness symptoms. The patient has been using her respiratory therapy. She has not required her rescue inhaler. She continues uses CPAP every night. We did review the download. She does use it for more than 4 hours a night and her AHI is down to 1.2. Therefore she will continue with the current settings. She is doing really good on the CPAP at this time. She also finds it very effective in beneficial. 07/04/2023 the patient is here for a pulmonary follow-up visit. She has been having some issues with her insurance. She lost her [employer] and therefore she has been having difficulties with medication cost and other medical cost. She is currently appealing that decision. In the meantime she continues use her CPAP. The CPAP therapy continues to be affecting beneficial. She does use it for more than 4 hours a night. The patient also has been using her inhalers. Recently she did get a new prescription of QVAR. She is going to start that new. She did not tolerate the generic Flovent. She does have the immunodeficiency has been responding well to the azithromycin 3 times a week. She has been noticing increasing shortness of breath and chest tightness. She has not started the QVAR just yet although she does have wheezing on examination. I will give her a prednisone taper that she can start if her symptoms worsen and or she does not respond to the QVAR. 01/03/2024 the patient is here for a pulmonary follow-up visit. She continues to struggle with her inhalers. She can not find her that she can not tolerate. She does not tolerate powdered inhalers because she is allergic to them and also they irritate her throat. Therefore will stick to HFA. She has tried Symbicort in the past although he has been while. Will go ahead and trial Symbicort again she can start with 1 puff at a time to make sure she tolerates and then she can increase it as tolerated. In addition to that she continues on the azithromycin for immunodeficiency. Will go ahead and recheck her IgG level since it has been awhile. In addition to that will have her come back in 4 months with PFTs. She is tolerating the CPAP. The CPAP therapy has been affecting beneficial. She does use it for more than 4 hours. She does use nasal pillows. She gets supplies through [email or web address]. Will send a script at this time for additional supplies. 03/24/2024 the patient is here for pulmonary follow-up visit. The patient is doing well. She had COVID back in the fall. She did take Paxlovid. For now she has been stable. She has been tolerating the azithromycin 3 times a week as prophylaxis for her immunodeficiency. Her IgG levels continue to be significantly low but she is not interested in pursuing any augmentation therapy with IgG. The patient continues use her CPAP. CPAP therapy has been affecting beneficial. She does try to use more than 4 hours a night. She is currently going through a move so is been a little bit hard the last few weeks but she does find it very effective and therefore she continues use it. I will submit a prescription for supplies from her [employer] company. 09/30/2024 the patient is here for a pulmonary follow-up visit. Overall she is doing okay she is noticing increased cough and chest tightness. She has been wheezing lately. She is continues to Symbicort. She was given a prescription for Trelegy but she did not feel good on it. She has tried other inhalers and she has not done well on them. Seems to be just able to tolerate Symbicort and also Xopenex as needed. She has wheezing on exam and I did recommend she can start her nebulizer with the levo albuterol solution. In the meantime she also has immunodeficiencies. She has been on the macrolide therapy. Will go ahead and hold that and start her on doxycycline for 10 days. She will continue with the current respiratory therapy. As far as the oxygen the oxygen therapy continues to be affecting beneficial. She is wondering if she needs it with activity. At this point I doubt that she will qualify. We did tested the last time. Will plan to do another 6 minute walk test when she returns in 4-6 months. 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 She is working closely with physical therapy for that. 02/01/2025 the patient is here for pulmonary follow-up visit. Overall she is doing okay although she does not like the Symbicort. Feels like it makes her chest tight. She is having some wheezing. Will go ahead and switch over to Advair HFA. She does not tolerate powder. She also uses Xopenex. Seems to be working well for her. She continues in the AV prophylactic antibiotics were hypogammaglobulinemia. In the meantime she does use CPAP. [employer] is her DME. I will go ahead and make sure she gets supplies. The CPAP therapy has been affecting beneficial she does use it for more than 4 hours a night. She is also concerned for lung cancer. Her sister just diagnosed with pulmonary nodules concerning for lung cancer. We did review her last CT scan of the chest that was back in 2022 at [facility]. I did review the images. She has a ground-glass nodular density in the left hemithorax that we can follow. She also has some pleural thickening primarily on the right side with a slight calcifications suggesting the possibility of asbestos exposure. 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 Therefore indeed she may have some asbestos lung disease. [facility] Medical History (Updated 02/01/25 @ 10:28 by Chuck Yu MD) Pleural thickening Pulmonary nodule Osteopenia Tubular adenoma of colon Positional lightheadedness COPD (chronic obstructive pulmonary disease) Post herpetic neuralgia Hypothyroidism Heart murmur Vitamin D deficiency Hiatal hernia Bronchiectasis GWEN (obstructive sleep apnea) Fatty liver Diabetes type 2, controlled Obesity Hyperlipidemia HTN (hypertension) Asthma-COPD overlap syndrome Hypogammaglobulinemia Surgical History (Updated 01/03/24 @ 10:25 by Alina Shoemaker PA-C) History of total abdominal hysterectomy and bilateral salpingo-oophorectomy History of colonoscopy Retinal detachment Family History Father CVD (cardiovascular disease) Myocardial infarction Mother Breast cancer Diabetes mellitus Sister Cancer Kidney stone Son No problems noted. Social History Household Members: None Housing: Apartment Are you a primary healthcare management consultant to a significant other at home: No Do you presently have visiting nurse or other home services: No Alcohol intake: never Patient Tobacco Use Status: Former Tobacco user e-Cigarette/Vaping Use: Never Used Second Hand Smoke Exposure: No service: No Current occupational status: disabled Cognitive needs: Yes Hearing needs: No Vision needs: Yes Review of Systems Const Denies body aches, Denies chills, Denies fatigue and Denies fever(s) Eyes Denies change in vision ENT Reports vertigo, Reports dizziness, Denies otalgia, Reports nasal congestion, Reports nasal discharge, Reports nasal obstruction, Reports sinus pressure and Denies sore throat Card Denies chest pain, Denies edema, Reports leg edema (R>L), Denies lightheadedness, Denies dyspnea and Reports dyspnea on exertion Resp Reports change in phlegm color, Reports chest congestion, Reports cough, Denies dyspnea, Reports dyspnea on exertion and Reports wheezing GI Denies abdominal pain, Denies constipation, Denies diarrhea, Denies nausea and Denies vomiting Denies hematuria, Denies dysuria and Denies flank pain Musc Details: Bilateral lower extremity redness and swelling R>L Reports back pain, Denies myalgias, Denies arthralgias, Denies joint swelling, Denies numbness and Denies tingling Skin/Breast Denies lesions and Denies rash Neuro Denies confusion, Reports vertigo, Reports dizziness, Denies numbness and Denies tingling Psych Denies confusion Endo Denies fatigue Aller/Immun Reports wheezing Physical Exam Vital Signs: Last Vital Signs Pulse 80 02/01/25 10:07 BP 140/52 H 02/01/25 10:07 Pulse Ox 96 02/01/25 10:07 Oxygen Delivery Method Room Air 02/01/25 10:07 BMI result Body Mass Index 36.9 Const General: No confusion Orientation/consciousness: No confusion HEENT Ears: TM abnormal retracted General nose exam: Abnormal mucous membranes and turbinates present erythematous Neck Neck: Yes normal visual inspection, Yes full ROM and Yes no lymphadenopathy Chest Chest palpation & inspection: normal inspection of the chest Resp Effort & Inspection: normal respiratory effort Auscultation: wheezes and diminished lung sounds Cardio Rate: regular rate Rhythm: regular rhythm Heart sounds: S1 normal heart sound present and S2 normal heart sound present GI Palpation (GI): Soft to palpation and nontender Auscultation: normal bowel sounds Skin General skin exam: rashes and/or lesions noted Neuro General: No confusion Extrem General: Yes edema (R>>L) Assessment & Plan Assessment & Plan (1) COPD (chronic obstructive pulmonary disease): Code(s): J44.9 - Chronic obstructive pulmonary disease, unspecified Category: Medical Qualifiers: COPD type: COPD with acute exacerbation Qualified Code(s): J44.1 - Chronic obstructive pulmonary disease with (acute) exacerbation (2) GWEN (obstructive sleep apnea): Comment: (on CPAP with good effect) Code(s): G47.33 - Obstructive sleep apnea (adult) (pediatric) Category: Medical (3) Asthma-COPD overlap syndrome: Code(s): J44.9 - Chronic obstructive pulmonary disease, unspecified Category: Medical (4) Hypogammaglobulinemia: Code(s): D80.1 - Nonfamilial hypogammaglobulinemia Category: Medical (5) Lower extremity edema: Code(s): R60.0 - Localized edema Category: Medical (6) Pulmonary nodule: Code(s): R91.1 - Solitary pulmonary nodule Category: Medical (7) Pleural thickening: Code(s): J92.9 - Pleural plaque without asbestos Category: Medical Plan stop Symbicort start Advair HFA Xopenex as needed stopped spiriva due to coughing Azithromycin MWF CT chest-pt prefers [facility] holding CPAP therapy continue 2L/min oxygen while sleeping, 6MWT during the next visit continue oxygen therapy while sleeping. Therapy effective and beneficial F/U 4-6 months Orders: Orders Immunoglobulin G Subclasses Today D80.1 - Nonfamilial hypogammaglobulinemia Erythrocyte Sedimentation Rate Today D80.1 - Nonfamilial hypogammaglobulinemia Complete Blood Count Auto Diff Today D80.1 - Nonfamilial hypogammaglobulinemia CT chest wo IV con Today J92.9 - Pleural plaque without asbestos, R91.1 - Solitary pulmonary nodule Basic Metabolic Panel Today D80.1 - Nonfamilial hypogammaglobulinemia Immunoglobulin E Today D80.1 - Nonfamilial hypogammaglobulinemia Medications: New fluticasone propion-salmeterol 115-21 mcg/actuation (Advair HFA) 2 puffs inhalation Q12H 36 grams 3RF 90 days fluticasone propion-salmeterol 115-21 mcg/actuation (Advair HFA) 2 puffs inhalation Q12H 12 grams 11RF 30 days mometasone 50 mcg/actuation administer into each nostril 2 sprays intranasal DAILY PRN 3 ea 3RF nasal congestion 90 days Refilled azithromycin Take 1 tablet on Saturday/Saturday/Saturday 250 mg PO 3XW 39 tabs 3RF 90 days K21.9 - Gastro-esophageal reflux disease without esophagitis Coding Level of Care Code Complex visit Add On G2211 Diagnoses Chronic obstructive pulmonary disease with acute exacerbation J44.1 COPD type: COPD with acute exacerbation GWEN (obstructive sleep apnea) G47.33 Asthma-COPD overlap syndrome J44.9 Hypogammaglobulinemia D80.1 Lower extremity edema R60.0 Pulmonary nodule R91.1 Pleural thickening J92.9 Time Spent (min) 18
[2025-02-01 10:07] VITALS: BP 140/52; PULSE 80; O2SAT 96; BMI 36.9
--- OUTSIDE RECORDS SUMMARY | 2025-02-01 12:05 | XMS_ITS | Data Portability ---
Author Organization [place] - [facility], Allergy Address [address] [address] Care Team Providers Care Endocrinology Physician Name Role Phone SHELDON LEXIE Primary Care Provider [phone] Assessment Encounter Date Assessment Date Assessment LastModified [...] she may need referral to a cervical credit card specialist. In light of her chronic uncontrolled migraine I recommended she reconnect with [facility] neurology to discuss further treatments for chronic uncontrolled migraine, as she may be a candidate for one of the newer pharmacologic remedies for migraine. [email or web address] Not available 10/22/2023 11:25:34 05/04/2024 05/04/2024 79 [...] swallow which she prefers to do through [facility]. Recommend gastroenterology follow up and she does have upcoming appointment with them. Not available 06/08/2024 14:58:40 Plan of Treatment Reminders Order Date Submit Date Provider Last Modified By Organization Details Last Modified Time Details Appointments Establish ed 30 2024 11:00A M TABITHA Kiser MD Not available Not available Not available Lab None recorded. Referral None recorded. Procedures None recorded. Surgeries None recorded. Imaging [place], modified barium swallow study 2024 025 [email or web address] [facility], [address] [place], [address], 06/08/2024 14:27:01 Medication Orders None recorded. Patient TargetsNo [...] ation record ed. [email or web address] Not Available 00:30:56 10/30/1907/04/2018 imagi ng/di agnos tic resul t No observ ation record ed. [email or web address] Not Available 00:30:57 10/30/19 24 07/07/2018 audio gram No observ ation record ed. 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; Note: Date Diagnose d: 5 1:38 PM (527.2) Not Available [facility] 4 02:33:18 Type 2 diabetes mellitus without complica tion 267034763 Active 2016 Type 2 diabetes mellitus without complica tions; Note: Date Diagnose d: 7 2:03 PM (E11.9) Not Available [facility] 4 02:33:09 Singers' nodes 09452938 Active 2016 Nodules of vocal cords; Note: Date Diagnose d: 7 2:06 PM (J38.2) Not Available [facility] 4 02:33:16 Gastroes ophageal reflux disease without esophagi tis 193610596 Active 2016 Gastro-e sophagea l reflux disease without esophagi tis; Note: Date Diagnose d: 7 2:06 PM (K21.9) Not Available [facility] 4 02:33:22 Dysphoni a 45171262 Active 2016 Hoarsene ss; Note: Date Diagnose d: 7 2:01 PM (R49.0) Not Available [facility] 4 02:33:17 Otorrhea of right ear 37080479454 06510 Active 2018 Otorrhea , right ear; Note: Date Diagnose d: 06/17/2018 11:38 AM (H92.11) Not Available [facility] 4 02:33:19 Dizzines s and giddines s 650949427 Active 2018 Dizzines s and giddines s; Note: Date Diagnose d: 9 10:28 AM (R42) Not Available [facility] 4 02:33:26 Benign paroxysm al position al vertigo 738782571 Completed 201810/11/2023 Benign paroxysm al vertigo, left ear; Note: Date Diagnose d: 9 11:04 AM (H81.12) Not Available [facility] 4 02:33:15 Sensorin eural hearing loss 28289844 Active 2018 Sensorin eural hearing loss, unilater al, left ear, with unrestri cted hearing on the contrala teral side; Note: Date Diagnose d: 9 10:28 AM (H90.42) Not Available [facility] 4 02:33:11 Bilatera l tinnitus 47608913143 02 Active 2018 Tinnitus , bilatera l; Note: Date Diagnose d: 9 10:28 AM (H93.13) Not Available [facility] 4 02:33:12 Refracto ry migraine 761709477 Active 2021 Other migraine , intracta ble, without status migraino selene; Note: Date Diagnose d: 2 1:40 PM (G43.819 ) Not Available [facility] 4 02:33:27 Allergic rhinitis 89841052 Active 2021 Other allergic rhinitis ; Note: Date Diagnose d: 2 1:47 PM (J30.89) Not Available [facility] 4 02:33:14 Vertigo of central origin 58771230 Active 2021 Vertigo of central origin; Note: Date Diagnose d: 2 1:40 PM (H81.4) Not Available [facility] 4 02:33:18 Obstruct raine sleep apnea syndrome 65141584 Active 2021 Obstruct raine sleep apnea (adult) (pediatr ic); Note: Date Diagnose d: 2 1:42 PM (G47.33) Not Available [facility] 4 02:33:24 Chronic cough 93759331 Active 2022 Chronic cough; Note: Date Diagnose d: 09/09/2022 10:54 AM (R05.3) Not Available [facility] 4 02:33:20 Benign paroxysm al position al vertigo 865886812 Active 2023 ALEJANDRO ARGUELLO MD 100 [facility] [address], [place], [address] , [place] - [facility] 4 11:20:52 Neck pain 04204251 Active 2023 ALEJANDRO ARGUELLO MD 100 [facility] [address], [place], [address] , [place] - [facility] 4 11:21:17 Impacted cerumen in right ear 82873754853 97052 Active 2024 Nessa brito [place] - [facility] 5 11:46:00 Dysphagi a 09044452 Active 2024 Nessa brito [place] - [facility] 14:15:22 Problem Notes None recorded. Procedures Surgical History Date Name Laterality Status Provider Name and Address Organization Details Recorded Time 06/09/19 25 FOL_DP completed Nessa Gage [place] - [facility] 06/08/2024 14:16:41 05/04/19 25 Cerumen removal without microscope right completed Nessa Gage [place] - [facility] 05/04/2024 11:45:37 Hysterectomy completed Mercedes Gonzalez [place] - [facility] 10/22/2023 11:01:15 Carpal tunnel surgery completed Mercedes Gonzalez [place] - [facility] 10/22/2023 11:01:28 procedure on retina completed Mercedes Gonzalez [place] - [facility] 10/22/2023 11:01:40 Imaging Results None recorded. Procedure Notes None recorded. Medical Equipment None Reported. Allergies Allergen ID Allergen Name Allergen Category Reaction Reaction Severity Criticality Documentation Date Start Date Code Code System Note Provider Name and Address Organization Details Recorded Time 18759 latex environme nt,medica tion other Not available Not available 07/23/2023 32098 91 RxNorm React ion: unkno wn, unspe cifie d;; Not Available [facility] 4 00:56:49 45996 clarithro mycin medicatio n other Not available Not available 07/23/2023 47513 RxNorm React ion: unkno wn, unspe cifie d;; Not Available [facility] 4 00:56:51 74066 ciproflox acin hydrochlo ride medicatio n other Not available Not available 07/23/2023 92051 RxNorm React ion: unkno wn, unspe cifie d;; Not Available [facility] 4 00:56:55 24826 pregabali n medicatio n other Not available Not available 07/23/2023 83683 2 RxNorm React ion: unkno wn, unspe cifie d;; Not Available [facility] 4 00:56:56 35948 Macrobid medicatio n other Not available Not available 07/23/2023 87007 1 RxNorm React ion: unkno wn, unspe cifie d;; Not Available [facility] 4 00:56:57 42616 diazepam medicatio n other Not available Not available 07/23/2023 3322 RxNorm React ion: unkno wn, unspe cifie d;; Not Available [facility] 4 00:56:59 12426 Substance with sulfonami de structure and antibacte rial mechanism of action (substanc e) medicatio n other Not available Not available 07/23/2023 15064 8003 SNOMED React ion: unkno wn, unspe cifie d;; Not Available [facility] 4 00:57:01 28483 Iodine and/or iodine compound (substanc e) Not available other Not available Not available 07/23/2023 18230 6004 SNOMED React ion: unkno wn, unspe cifie d;; Not Available [facility] 00:57:04 Medications Name Sig Start Date Stop Date Status Note LastModified by Organization Details LastModified Time heidy lowery misc 10/21 completed Not Available Not Available Not Available Singulair 10 mg tablet 03/24 completed Medicati on ID: [id number] Du ration Value: 90 Brand Name: Singulai r Send Method: E-Prescr ibed Sub s Allowed: subs OK Speci al Instruct ion: TAKE 1 TABLET BY MOUTH EVERY EVENING Medicati onGeneri cName: Singulai r Not Available Not Available Not Available atorvasta tin 40 mg tablet 05/04 completed Medicati on ID: [id number] B rand Name: atorvast atin Sen d Method: E-Prescr ibed Sub s Allowed: subs OK Medic ationGen ericName : atorvast atin Not Available Not Available Not Available buspirone 5 mg tablet 10/21 completed Medicati on ID: [id number] B rand Name: buspiron e Send Method: E-Prescr ibed Sub s Allowed: subs OK Medic ationGen ericName : buspiron e Not Available Not Available Not Available prednison e 10 mg tablet TAKE 2 TABLETS BY MOUTH DAILY FOR 5 DAYS active Not Available Not Available No t Available doxycycli ne hyclate 100 mg capsule TAKE 1 CAPSULE BY MOUTH TWICE A DAY FOR 10 DAYS 01/31 completed Not Available Not Available Not Available [...] Available Not Available FreeStyle Lancets 28 gauge INJECT 1 EACH UNDER THE SKIN EVERY MORNING. active Not Available Not Available No t Available lisinopri l 20 mg tablet TAKE 1 TABLET BY MOUTH EVERY DAY active Not Available Not Available No t Available Synthroid 125 mcg tablet active Not Available Not Available Not Available prednison e 20 mg tablet 03/24 completed Medicati on ID: [id number] Du ration Value: 7 Brand Name: predniso [...] Available Not Available meclizine 12.5 mg tablet TAKE 1 TABLET BY MOUTH 3 TIMES A DAY NEEDED FOR DIZZINES S OR NAUSEA. active Not Available Not Available No t Available amlodipin e 2.5 mg tablet 10/21 [...] mg tablet 10/21 completed Medicati on ID: [id number] B rand Name: alprazol am Send Method: E-Prescr ibed Sub s Allowed: subs OK Medic ationGen ericName : alprazol am Not Available Not Available Not Available famotidin e 20 mg tablet 10/21 completed Medicati on ID: [id number] B rand Name: famotidi ne Send Method: [...] completed Not Available Not Available Not Available verapamil ER (PM) 300 mg capsule 24hr pellet CT,ext.re lease TAKE 1 CAPSULE BY MOUTH AT BEDTIME active Not Available Not Available No t Available Ear Drops (carbamid e peroxide) 6.5 [...] Not Available Not Available No t Available levalbute rol 1.25 mg/3 mL solution for nebulizat ion INHALE 3 ML (1 VIAL) VIA NEBULIZE R EVERY 4 HOURS NEEDED FOR SHORTNES S OF BREATH OR WHEEZING active Not Available Not Available No t Available epinephri ne 0.3 mg/0.3 mL injection , auto-inje ctor INJECT 0.3 MG INTRAMUS CULARLY ONCE active Not Available Not Available No t Available lisinopri l 40 mg tablet active Not Available Not Available Not Available doxycycli ne hyclate 100 mg tablet 03/24 completed Medicati on ID: [id number] Du ration Value: 30 Brand Name: doxycycl [...] mg tablet 10/21 completed Medicati on ID: [id number] B rand Name: cycloben zaprine Send Method: E-Prescr ibed Sub s Allowed: subs OK Medic ationGen ericName : cycloben zaprine Not Available Not Available Not Available Restasis 0.05 % eye drops in a dropperet te 10/21 completed Not Available Not Available Not Available Alcohol Prep Pads USE TWICE DAILY DIRECTED FOR MONITORI NG GLUCOSE, DX CODE E11.9 active Not Available Not Available No t Available Flovent HFA 220 mcg/actua tion aerosol inhaler 05/04 completed Medicati on ID: [id number] B rand Name: Flovent HFA Send Method: E-Prescr ibed Sub s Allowed: subs OK Medic ationGen ericName : Flovent HFA Not Available Not Available Not Available levalbute rol HFA 45 mcg/actua tion aerosol inhaler INHALE 1 PUFF INTO LUNGS ONCE DAILY NEEDED FOR SHORTNES S OF BREATH OR WHEEZING active Not Available Not Available No t Available Advair HFA 115 mcg-21 mcg/actua tion aerosol inhaler 10/21 completed Medicati on ID: [id number] B rand Name: Advair HFA Send Method: E-Prescr ibed Sub s Allowed: subs OK Medic ationGen ericName : Advair HFA Not Available Not Available Not Available Pulmicort Flexhaler 180 mcg/actua tion breath activated TAKE 1 PUFF BY MOUTH TWICE A DAY 05/04 completed Not Available Not Available Not Available Symbicort 160 mcg-4.5 mcg/actua tion HFA aerosol inhaler active Not Available Not Available Not Available FreeStyle Lite Meter kit USE TWICE DAILY DIRECTED FOR MONITORI NG GLUCOSE, DX CODE E11.9 active Not Available Not Available No t Available FreeStyle Lite Strips USE TWICE DAILY DIRECTED FOR MONITORI NG GLUCOSE, DX CODE E11.9 active Not Available Not Available No t Available Retaine MGD (PF) 0.5 %-0.5 % [...] Not Available Not Available No t Available Ubrelvy 50 mg tablet TAKE 1 TABLET BY MOUTH NEEDED FOR MIGRAINE . MAY REPEAT 2 HOURS IF NEEDED. MAX 4 TABS (200 MG)/DAY active Not Available Not Available No t [...] Updated DateTime 06/08/2024 157.48 cm 35.3 kg/m2 29072.33 g Jude Humphries [place] - [facility] 06/08/2024 14:02:37 Social History None recorded. Functional Status None recorded. Mental Status None recorded. Family History Nothing Reported. Medical History Condition Response Allergies/Hayfever Y Diabetes Y High Cholesterol Y Sleep Disorder Y Migraines Y Thyroid Problems Y Hypertension Y Asthma Y Gynecological HistoryNo gynecological history recorded. Obstetrics History GPAL:G 0 P 0 0 0 0 Past Encounters Encounter ID Performer Location Encounter Start Date Encounter Closed Date Diagnosis/Indication Diagnosis SNOMED-CT Code Diagnosis ICD10 Code Diagnosis IMO Codes Diagnosis Note [id number] ALEJANDRO ARGUELLO MD [facility] [address] [address] 10/22/2023 10:30:35 10/22/2023 11:25:06 Benign paroxysmal positional vertigo 227115054 H81.12 Patient also has episodic positional ly [...] can call for further referrals. Neck pain 85042050 M54.2 Obstructiv e sleep apnea syndrome 33464676 G47.33 Refractory migraine 4238 68991 G43.819 Type 2 jyoti betes mellitus without complication 903891230 E11.9 Vertigo of central origin 59027397 H81.4 [id number] NESSA GAGE PA-C [facility] on [address] [place] [phone] 05/04/2024 10:45:42 05/04/2024 11:18:18 Impacted cerumen in right ear 7523302354 777656 H61.21 [id number] NESSA GAGE PA-C [facility] on [address] [place] [phone] 06/08/2024 13:56:25 06/08/2024 14:27:01 Dysphonia 92366561 R49.0 Dysphagia 73446117 R13.1 0 Health Concerns Section Related Observation LastModified by Organization Detai ls LastModified Time None Recorded Concern Status LastModified by Organization Details LastModified Time None Recorded Advance Directives Directive None Recorded Payers Insurance Date Sequence Insurance Name Policy Number Policy Keys Covered Member ID Keys Member ID Guarantor Name 01/31/2025 2 [place] [facility] Dixie Hui Peloquin [id number] Dixie Hui Peloquin 01/31/2025 1 [place] [employer] Dixie Hui Peloquin [id number] Dixie Motaoquin Notes Date Note Type Note Provider Name and Address Organization Details Recorded Time 10/22/2023 text/html 78-year-old female who I evaluated back in June 2021. [...] a couple of weeks. ALEJANDRO ARGUELLO MD [address] [place] [address], [phone], [facility] - [facility] 10/22/2023 11:26:16 05/04/2024 text/html ROS as noted in the HPI 79 year old female presents to the office requesting evaluation of [...] reports that she has upcoming appointment with [facility] machine tender Dr. Summers in [place] for evaluation of swallowing issues. Sometimes when [...] in neurology for migraines. ALEJANDRO ARGUELLO MD [address] [place] [address],[address], [address], [facility] - [facility] 05/06/2024 07:32:13 06/08/2024 text/html ROS as noted in the [facility] 79 year old female presents for evaluation of dysphagia. Following her last office visit she did not end up seeing Dr. Summers of gastroenterology. She is changing care and has an appointment in the next few months in [place] and will see Ken Mantilla MD. She [...] therapy for her back. TABITHA ANDRADE MD [address] [place] [address],[address], [address], [facility] - [facility] 06/08/2024 16:46:13 OBGyn Episode No OBEpisode recorded.
--- OUTSIDE RECORDS SUMMARY | 2025-02-01 12:05 | XMS_ITS | Clinical Summary ---
Author Organization [facility] Address [address] [address] Phone Care Team Providers Care Cheese Weigher Name Role Phone Wandy Beasley MD Primary Care Provider [phone] Allergies Active Allergy Reactions Criticality Noted Date Comments Amoxicillin-Pot Clavulanate Other (see comments) 02/09/2021 Atorvastatin 04/12/2021 Beclomethasone 04/12/2021 Buspirone Nausea And Vomiting,Shortness of breath High 05/31/2021 Celecoxib 04/12/2021 Cimetidine Other (see comments) 02/09/2021 Ciprofloxacin 01/14/2007 Clarithromycin 01/14/2007 Erythromycin 01/14/2007 Escitalopram Other (see comments) 02/09/2021 Esomeprazole 01/14/2007 Ezetimibe 04/12/2021 Fluoxetine Other (see comments) 02/09/2021 Fluticasone-Salmeterol 12/05/2020 Gadolinium 03/15/2021 Iodinated Contrast Media Anaphylaxis High 10/16/2019 Iodine 12/14/2021 Irbesartan 04/12/2021 Lansoprazole Other (see comments) 02/09/2021 Latex Other (see comments) 02/09/2021 Metformin 04/12/2021 Nitrofurantoin 04/12/2021 Pantoprazole Other (see comments) 02/09/2021 Penicillin G Other (see comments) 02/09/2021 Pregabalin 12/14/2021 Rabeprazole Other (see comments) 02/09/2021 Ranitidine Other (see comments) 02/09/2021 Rosuvastatin 04/12/2021 Shellfish Allergy Other (see comments) 02/10/20 21 Sulfa Antibiotics Other (see comments) 01/15/20 07 Telmisartan 04/12/2021 Other reaction(s): Tramadol Medications Multiple Vitamin (Multivitamin Adult) tablet Take 1 capsule by mouth 1 (one) time each day Active levalbuterol (XOPENEX HFA) 45 MCG/ACT inhaler Inhale 2 puffs 4 (four) times a day Active levothyroxine (SYNTHROID, LEVOTHROID) 137 MCG tablet Take 1 tablet by mouth every other day Active verapamil ER (VERELAN PM) 300 MG 24 hr capsule Take 1 capsule by mouth 1 (one) time each day Active Yorklyn-3 1000 MG capsule Take 1 capsule by mouth 1 (one) time each day Active lisinopril (PRINIVIL,ZESTR IL) 10 MG tablet Take 30 mg by mouth in the morning and 30 mg in the evening. 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 History of colonoscopy 08/02/2023 Malabsorption of glucose 08/02/2023 Migraine 08/02/2023 Palpitations 08/02/2023 Genuine stress incontinence 07/01/2021 H/O: thyroid disorder 07/01/2021 Polyp of vocal cord 07/01/2021 Tubular adenoma 07/01/2021 Benign neoplasm of colon 06/07/2021 Liver enzymes level above reference range 2021 Polyp of gallbladder 06/07/2021 Screening for malignant neoplasm of colon 2021 Bilateral age-related cataract 04/30/2021 Overview (06/07/2021): She states she was told that she needed to see a retinal specialist before cataract extraction Chest pain 04/30/2021 Overview (06/07/2021): Last Assessment & Plan: She continues to get chest discomfort. Dr. Ackerman ordered nuclear stress test but she tells me that she cannot have it because she is worried about having a side effect to the tracer. I have discussed with her that the it is unlikely that she would have a side effect of the tracer. I have suggested that she have a stress echocardiogram. We will follow up with her after her stress echocardiogram has been completed. Dizziness and giddiness 04/30/2021 Overview (06/07/2021): ENT- Dr. Navdeep Lyons Last Assessment & Plan: Follow up MRI report Enzyme level - finding 04/30/2021 Overview (06/07/2021): 08/2020: AST 27, ALT 40 02/2021: AST 43, ALT50 Last assessment and plan: Mild. Being followed by GI Dr. Yeison Summers, last office notes reviewed 03/2021. Plan is for follow up LFTs in 6 months. Possibly related to SQUIRES. She also had a subcentimeter liver cyst on last CT abdomen, which was not present on last abdominal US which showed fatty liver but no cyst Last Assessment & Plan: Mild. Being followed by GI Dr. Yeison Summers, last office notes reviewed 03/2021. Plan is for follow up LFTs in 6 months. Likely related to SQUIRES. She also had a subcentimeter liver cyst on last CT abdomen, which was not present on last abdominal US which showed fatty liver but no cyst Lumbar radiculopathy 04/30/2021 Overview (06/07/2021): Confirmed on EMG Neurology Dr. Juan Pablo Mohan notes Irritable bowel syndrome 04/30/2021 Overview (06/07/2021): Last Assessment & Plan: Symptoms are currently stable. Metabolic dysfunction-associated steatotic liver disease 04/30/2021 Osteopenia 04/30/2021 Overview (06/07/2021): Outside [facility] reviewed 10/26/2019 screening DEXA, revealed osteopenia of the L-spine and right femoral neck Last Assessment & Plan: Outside [facility], reviewed 10/26/2019 screening DEXA, revealed osteopenia of the L-spine and right femoral neck Presbycusis 04/30/2021 Overview (06/07/2021): Last Assessment & Plan: Audiometry testing scheduled in 1 week Mixed hyperlipidemia 03/15/2021 Overview (06/07/2021): Last Assessment & Plan: Unable to tolerate atorvastatin per PCP note Reviewed lipid panel Goal LDL < 70 May benefit from non-statin cholesterol lowering medication, likely better to hold off until current symptoms lessen or resolved Discussed the benefit of healthy eating and increasing exercise as tolerated to help with glycemic control that will also have a lowering effect on cholesterol Intractable migraine with 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 Juan Pablo Cordova neurology now. She has declined starting Keppra as previously recommended by neuro. -Concern regarding MS- She has declined doing MRI, even open MRI due to severe procedural anxiety/claustrophobia Last Assessment & Plan: Following with Dr. Juan Pablo Cordova neurology now. She has declined starting Keppra as previously recommended by neuro. Anxiety 03/08/2021 Overview (06/07/2021): Last Assessment & Plan: Reports h/o KYLIE. Was unable to tolerate buspar. Discontinued. Discussed gabapentin, but per fish technologist told her not to take it. Discussed SSRI, but she declines to initiate- prefers to wait to see psychiatrist first. She has gone back to taking Xanax. She will follow up with therapist and psychiatrist next week Breifly discussed lamotrigine. I suspect she may possibly have underlying bipolar or possibly bipolar II, based on elated mood and rapid speech. Does not seem to have any depressive symptoms at this point, I will defer to psychiatry evaluation at this time. Strain of neck muscle 02/05/2021 Overview (06/07/2021): Last Assessment & Plan: Heat, gentle neck stretching, topical analgesics, NSAIDs, PT Shortness of breath 01/10/2021 Overview (06/07/2021): Last Assessment & Plan: Significantly improved. Patient attributes this to change in inhaler scheduling. Continue with asthma regimen as outlined below. Common variable immunodeficiency 12/07/2020 Overview (06/07/2021): Last Assessment & Plan: Patient carries this diagnosis though has not been treated with replacement therapy. We need to confer with her sonogram technician Dr. Jones to obtain further details. Chronic rhinitis 12/07/2020 Encounter for screening for osteoporosis 021 Overview (06/07/2021): Outside records-[facility] reviewed 10/26/2019 screening DEXA, revealed osteopenia of the L-spine and right femoral neck Patient encounter status 12/07/2020 Overview (06/07/2021): Screening colonoscopy 04/08/2019: Tubular adenoma x1, recommended 5-year follow- up -[facility] gastroenterology Dr. Yeison Brown Outside records-[facility], reviewed 10/2020 screening mammography BI-RADS 2 Next screening mammogram due 10/2021 Last Assessment & Plan: Outside records-[facility], reviewed 10/2020 screening mammography BI-RADS 2 Next screening mammogram due 10/2021 Obstructive sleep apnea syndrome 12/07/2020 Overview (06/07/2021): On CPAP machine home sleep study 09/2020 [facility]- moderately severe GWEN, noctural hypoxemia, reccomended sleep center CPAP titration study Last Assessment & Plan: [facility] records reviewed, home sleep study 09/2020 [facility]- moderately severe GWEN, noctural hypoxemia, reccomended sleep center CPAP titration study -Has appointment with Dr. Sykes 05/2021 -Continue CPAP nightly Requires varicella vaccination 12/07/2020 Overview (06/07/2021): States that her sonogram technician Dr. Jones has told her that she cannot receive any live vaccines. Do not have any medical records for review Severe obesity 12/07/2020 Uncomplicated mild persistent asthma 12/07/2020 Overview (06/07/2021): Last Assessment & Plan: Mild asthma with preserved PFTs on treatment. Continue Xopenex 2 puffs followed by Flovent 2 puffs, both twice daily. Additional Xopenex MDI or nebulizer as needed. Cardiac murmur 07/21/2020 Essential hypertension 04/20/2020 Type 2 diabetes mellitus without complication Overview (06/07/2021): Hemoglobin A1c 11/2020: 6.6% Management with diet alone Patient has previously declined to reinitiate metformin therapy Last Assessment & Plan: Dixie is stable and well controlled on diet alone with A1c of 6.3% in April 2021, previous 6.6% in 11/2020 Has many other health concerns, most distressing is dizziness and off balance feeling, been going on for months and does not correspond to glucose levels SMBG reveals tight control with fasting glucoses ranging from 98-111 mg/dl Encouraged Dixie to continue efforts focused on mindful eating and increase exercise as tolerated if dizziness improves Reviewed important annual exams, Dixie is up to date on both dilated eye exam and foot exam Reviewed factors that affect glucose levels including emotional and physical stress on the body Given such tight glucose levels controlled on diet therapy alone, no need for scheduled follow up in diabetes center, but welcome to keep follow ups as needed if noticing worsening glycemic control. Dixie prefers to have a scheduled follow up with the diabetes center in 6 months Hypogammaglobulinemia 03/28/2017 Fibromyalgia 01/14/2007 Gastro-esophageal reflux disease without esophag itis 01/14/2007 Overview (06/07/2021): Gastroenterology Dr. Yeison Brown Lansoprazole (Prevacid) 30 mg daily Last Assessment & Plan: Symptoms are currently stable on Prevacid 30 mg daily Hypothyroidism 01/14/2007 Overview (06/07/2021): Levothyroxine 137 mcg S/S/Tue/Th 125 mcg M/W/F. Last Assessment & Plan: Reviewed TSH, meeting goal Continues on Synthroid Pure hypercholesterolemia 01/14/2007 Immunizations Immunization Administration Dates Next Due Pfizer SARS-COV-2 06/15/2020,05/21/2020 Pneumococcal Conjugate 13-Valent 04/04/2016 Pneumococcal Polysaccharide 04/26/2014, 4,12/09/2012,04/18/2011 Tdap 12/31/2013,12/09/2012 Family History Medical History Relation Comments Heart disease Father Hypertension Father Cancer Mother Diabetes Mother Hypertension Mother Gout Sibling 1 Cancer Sibling 2 Relation Status Comments Father Mother Sibling 1 Sibling 2 Social History Tobacco Use Types Packs/Day Years Used Date Smoking Tobacco: Former Cigarettes 1 Q uit: 03/11/1989 Smokeless Tobacco: Never Tobacco Cessation:Counseling Given: Not Answered Comments:Smoking History Info:Every day Alcohol Use Standard Drinks/Week Comments Yes 0 (1 standard drink = 0.6 oz pure alcohol) Alcoholic Drinks/day: Occasional social drink Comments Unknown Sex and Gender Information Value Date Recorded Sex Assigned at Not on file Legal Sex Female 5:03 PM EST Gender Identity Not on file Sexual Orientation Not on file Last Filed Vital Signs Vital Sign Reading Time Taken Comments Blood Pressure 144/60 08/19/2023 12:59 PM EDT Pulse 90 08/19/2023 12:59 PM EDT Temperature - - Respiratory Rate - - Oxygen Saturation 96% 08/19/2023 12:59 PM EDT Inhaled Oxygen Concentration - - Weight 95.4 kg (210 lb 6.4 oz) 08/19/2023 12:59 PM EDT Height 160 cm (5' 3 ) 12/15/2018 12:00 PM EDT Body Mass Index 37.27 12/15/2018 12:00 PM EDT Plan of Treatment Upcoming Encounters Date Type Department Care Team (Late st Contact Info) Description 03/22/2025 3:30 PM EST Office Visit [facility] [address] [place] [address] Lionel Cote MD [address] [facility] [address] [place] [phone] Health Maintenance Due Date Last Done Comments Diabetes: Hemoglobin A1C 04/09/2020 Diabetes: Ophthalmology Exam 04/09/2020 Diabetes: Pedal Pulse Checked 04/09/2020 Diabetes: Sensory Foot Exam 04/09/2020 Diabetes: Visual Foot Exam 04/09/2020 Influenza Vaccine (#1) 2024 02/12/2022 Pneumococcal Vaccine: 50+ Years Completed 09/19/2021, 04/04/2016, 04/26/2014, Additional history exists Pneumococcal Vaccine: Peds (0 to 5 Years) and At-Risk Patients (6 to 49 Years) Discontinued 09/19/2021, 04/04/2016, 04/26/2014, Additional history exists Colorectal Cancer Screening: Colonoscopy Discontinued 08/02/2023 Hepatitis B Vaccine Aged Out No longe r eligible based on patient's age to complete this topic Insurance Medicare Medicare Medicaid [place] Medicaid [place] Medicare Care Teams Cheese Weigher Relationship Specialty Start Date End Date Wandy Beasley MD [address] [place] [address] PCP - General Internal Medicine 08/19/23
--- OUTSIDE RECORDS SUMMARY | 2025-02-01 12:06 | XMS_ITS | Encounter Summary ---
Author Organization [facility] Address [address] [place] [address] Phone Care Team Providers Care Molding Fitter Name Role Phone Wandy Beasley MD Primary Care Provider [phone] Encounter Details Date Type Department Care Team ([facility] Contact Info) Description 01/07/2024 Documentation Only [facility], [address] [place] [address] [place], [place] [address] [place] [address] Social History Tobacco Use Types Packs/Day Years Used Date Smoking Tobacco: Former Cigarettes 1 Q uit: 03/11/1989 Smokeless Tobacco: Never Comments:Smoking [...] Department Care Team (Late Contact Info) Description 03/22/2025 3:30 PM EST Office Visit [facility] [address] [place] [address] Lionel Cote MD [address] [address] documented as of this encounter Visit Diagnoses Not on filedocumented in this encounter Care Teams Molding Fitter Relationship Specialty Start Date End Date Wandy Beasley MD [address] [place] [address] PCP - General Internal Medicine 08/19/23 documented as of this encounter
== END 2025-02-01 10:38 | disposition home or self-care (01) ==
LOC: HO.HPS 10:03
PROVIDERS: PCP Student in an Organized Health Care Education/Training Program; Visit Provider Hospitalist
DX: J44.1 Chronic obstructive pulmonary disease with (acute) exacerbation (principal); G47.33 Obstructive sleep apnea (adult) (pediatric); J44.9 Chronic obstructive pulmonary disease, unspecified; D80.1 Nonfamilial hypogammaglobulinemia; R60.0 Localized edema; R91.1 Solitary pulmonary nodule; J92.9 Pleural plaque without asbestos
CPT/HCPCS: 99214; G2211

== ENCOUNTER → 2025-02-01 10:02 | Outpatient (BNVA) | payer MEDICARE, MEDICAID, SELFPAY | PROVIDERS: PCP Pediatrics; Visit Provider Hospitalist | DX: J44.1 Chronic obstructive pulmonary disease with (acute) exacerbation (principal); R91.1 Solitary pulmonary nodule; J92.0 Pleural plaque with presence of asbestos; Z87.891 Personal history of nicotine dependence; G47.33 Obstructive sleep apnea (adult) (pediatric); Z99.89 Dependence on other enabling machines and devices; D80.1 Nonfamilial hypogammaglobulinemia | CPT/HCPCS: 99212 ==